=== PATIENT | female | born 1955 | race Caucasian/White ===

== ENCOUNTER 2018-09-05 10:06 | Emergency (ER) | payer MEDICARE, MEDICAID, SELFPAY ==
[2018-09-05 10:17] VITALS: BP 193/73; PULSE 108; RESP 20; TEMP 36.9; O2SAT 98; BMI 35.4
--- NOTE | 2018-09-05 12:15 | PC.NURSE ---
pt reports recent dental work. lower lip now swelling. lip has area of cracks.
--- NOTE | 2018-09-05 20:27 | ED.SKABFB ---
HPI - Skin/Abscess/Foreign Bdy General Chief complaint: Skin/Abscess/Foreign Body Stated complaint: Swollen lower part of her face after dental work Time Seen by Provider: 09/05/18 10:17 Source: patient and family Mode of arrival: ambulatory Limitations: no limitations History of Present Illness HPI narrative: 63-year-old nonsmoking female with extensive dental history presents with gradual worsening of lower lip swelling for the past few days. She denies fever, chills nor facial swelling. The patient denies any he tongue swelling, difficulty with swallowing or itchy rash. She has no new medications, foods or lotions. She is undergoing evaluation for dental procedure and has had very intensely chapped lips in pulled off a layer of skin on her lip few days ago, she had been seen by her dentist in the aftermath who suggested lip moisturizer is. Since then her lip as swollen a bit more and is more painful. MD complaint: lesion Onset (ago): day(s) Tetanus up to date: yes Location: face (Lower lip only) Severity: mild Quality: burning and aching Pain Consistency: constant Relieving factors: none Exacerbating factors: none Treatments prior to arrival: none Related Data Home Medications Medication Instructions Recorded Confirmed omeprazole magnesium [Prilosec OTC] 20 mg PO DAILY #0 06/13/12 09/05/18 Glucose: Home Monitoring Kit 1 kit MISCELLANEOUS DIRECTED 09/05/18 09/05/18 Test Strips - Freestyle 1 item MISCELLANEOUS TID 09/05/18 09/05/18 atorvastatin [Lipitor] 20 mg PO BEDTIME 09/05/18 09/05/18 chlorthalidone 25 mg PO DAILY 09/05/18 09/05/18 losartan [Cozaar] 50 mg PO DAILY 09/05/18 09/05/18 naproxen sodium [Aleve] 1 dose PO PRN PRN 09/05/18 09/05/18 thyroid (pork) [[place]idge Thyroid] 120 mg PO DAILY 09/05/18 09/05/18 trazodone 100 mg PO BEDTIME 09/05/18 09/05/18 Previous Rx's Medication Instructions Recorded glyburide 5 mg tablet 5 mg PO BID #180 tab 09/04/18 amoxicillin-pot clavulanate 1 tab PO BID 10 Days #20 tab 09/05/18 [Augmentin] Allergies Allergy/AdvReac Type Severity Reaction Status Date / Time streptomycin [STREPTOMYCIN] Allergy Severe Throat Unverified 01/01/18 11:51 swelled up Review of Systems Review of Systems All systems reviewed & are unremarkable except as noted in HPI and below Constitutional Denies chills, Denies fever(s), Denies lethargy and Denies weakness Eyes Denies change in vision, Denies eye discharge, Denies irritation and Denies loss of vision ENT Ears, Nose, Mouth, and Throat: Denies change in voice, Denies neck pain and Denies sore throat Cardiovascular Denies chest pain, Denies irregular heart rhythm, Denies lightheadedness, Denies palpitations, Denies dyspnea, Denies dyspnea on exertion and Denies orthopnea Respiratory Denies cough, Denies dyspnea, Denies dyspnea on exertion and Denies wheezing Gastrointestinal Gastrointestinal: Denies abdominal pain, Denies change in bowel habits, Denies diarrhea, Denies nausea and Denies vomiting Genitourinary Denies hematuria, Denies flank pain, Denies urinary incontinence and Denies urinary urgency Musculoskeletal Denies neck pain Integumentary/Breasts Denies pruritus, Denies erythema, Denies rash and Denies wounds Comments: Lower lip swelling and pain Neurologic Denies confusion, Denies loss of vision and Denies weakness Psychiatric Denies anxiety, Denies confusion, Denies depression, Denies homicidal ideation and Denies suicidal ideation Endocrine Denies palpitations Hematologic/Lymphatic Denies easy bruising Allergic/Immunologic Denies wheezing PFSH Social History Smoking Status: Former smoker Exam Narrative Exam Narrative: GEN: AOx3 and in mild distress EYES: Pupils are equal, round, and reactive to light and accommodation. Extraoccular muscles are intact bilaterally. There is no subconjunctival hemorrhage or exudate. FACE: Lower lip is notably swollen and tender. It is not fluctuant or indurated, there is no drainage. There is very minimal swelling on the left lower jaw adjacent to the lip. There is no obvious dental abscess or drainage. CHEST: Lungs are clear to auscultation bilaterally and free of wheezes, rales, or rhonchi. Heart rate is regular rhythm, there are no murmurs, clicks, rubs, or gallops. There is no chest wall tenderness. ABD: Abdomen is soft and nontender. There is no guarding or rebound. Bowel sounds are normal in all 4 quadrants. There is no mass or organomegaly. EXT: Full painless ROM of all extremities with no loss of sensation or strength. SKIN: Warm, pink, and dry. No erythema or rash Initial Vital Signs Initial Vital Signs: Vital Signs Temperature 98.5 F 09/05/18 10:17 Pulse Rate 108 H 09/05/18 10:17 Respiratory Rate 20 09/05/18 10:17 Blood Pressure 193/73 H 09/05/18 10:17 Pulse Oximetry 98 09/05/18 10:17 MDM - Skin/Abscess/Foreign Bdy MDM Narrative Medical decision making narrative: Allergic reaction or angioedema considered but thought less likely given lack of other supporting symptoms. Patient had cracked, dry lips and pulled off a later or chunk of skin and swelling and pain started afterwards, making infection much more likely Discharge Plan Departure Patient Disposition: Home Clinical Impression: Cellulitis of skin of lip Discharge Date/Time: 09/05/18 11:30 Interventions: ED Discharge Assessment Last Done: 09/05/18 12:17 Instructions: DI for Cellulitis -- Adult Activity Restrictions/Additional Instructions: *You have been diagnosed with [ cellulitis of lip ] *What to do: *Take medications as directed *Follow up with your primary care provider in 2-3 days, call for an appointment. Let them know you were seen in the Emergency Department and that we ask that you be seen in follow up *Return to ER if you should have any new, worsening or concerning symptoms, such as [increasing swelling, drainage, trouble breathing, swallowing or other bothersome symptoms ] Prescriptions: New amoxicillin-pot clavulanate [Augmentin] 875-125 mg tablet 1 tab PO BID 10 Days Qty: 20 RF: 0 No Action omeprazole magnesium [Prilosec OTC] 20 mg Tablet,Delayed Release (Dr/Ec) 20 mg PO DAILY Qty: 0 RF: 0 glyburide 5 mg tablet 5 mg PO BID Qty: 180 RF: 5 losartan [Cozaar] 50 mg tablet 50 mg PO DAILY RF: 0 atorvastatin [Lipitor] 20 MG tablet 20 mg PO BEDTIME RF: 0 chlorthalidone 25 mg tablet 25 mg PO DAILY RF: 0 trazodone 100 mg tablet 100 mg PO BEDTIME RF: 0 thyroid (pork) [Coolidge Thyroid] 120 mg tablet 120 mg PO DAILY RF: 0 Glucose: Home Monitoring Kit 1 kit miscellaneous DIRECTED RF: 0 Test Strips - Freestyle 1 item miscellaneous TID RF: 0 naproxen sodium [Aleve] 220 mg Tablet 1 dose PO PRN PRN (Reason: pain) RF: 0
== END 2018-09-05 11:30 | disposition home or self-care (01) ==
PROVIDERS: Emergency Provider Emergency Medicine; Family Provider Family Medicine; PCP Family Medicine
DX: K13.0 Diseases of lips (principal)
CPT/HCPCS: 99282

== ENCOUNTER 2018-09-06 12:05 | Emergency (ER) | payer MEDICARE, MEDICAID, SELFPAY ==
[2018-09-06 12:15] VITALS: BP 178/69; PULSE 93; RESP 20; TEMP 36.9; O2SAT 99
--- NOTE | 2018-09-06 12:35 | ED_ITS ---
HPI - Skin/Abscess/Foreign Bdy <LORRAINE Oconnor - Last Filed: 09/06/18 22:24> General Chief complaint: Skin/Abscess/Foreign Body Stated complaint: SWELL LOWER LIP SINCE SATURDAY Time Seen by Provider: 09/06/18 12:33 Source: patient Mode of arrival: ambulatory Limitations: no limitations History of Present Illness HPI narrative: 63-year-old female with history of hypertension is a nonsmoker here for recheck of swelling to her lower lip. She was seen in the emergency room yesterday and was diagnosed with cellulitis of the lower lip secondary to a dental procedure earlier this week. She was prescribed Augmentin and she has started taking the medication yesterday. She was concerned as the swelling to the lower lip has not improved. She also has some serous drainage from the lower lip. No fevers. She denies any oral lesions or swelling or tenderness other than the lower lip. She denies any new concerns or complaints at this time. Related Data Home Medications Medication Instructions Recorded Confirmed omeprazole magnesium [Prilosec OTC] 20 mg PO DAILY #0 06/13/12 09/05/18 Glucose: Home Monitoring Kit 1 kit MISCELLANEOUS DIRECTED 09/05/18 09/05/18 Test Strips - Freestyle 1 item MISCELLANEOUS TID 09/05/18 09/05/18 atorvastatin [Lipitor] 20 mg PO BEDTIME 09/05/18 09/05/18 chlorthalidone 25 mg PO DAILY 09/05/18 09/05/18 losartan [Cozaar] 50 mg PO DAILY 09/05/18 09/05/18 naproxen sodium [Aleve] 1 dose PO PRN PRN 09/05/18 09/05/18 thyroid (pork) [[place] Thyroid] 120 mg PO DAILY 09/05/18 09/05/18 trazodone 100 mg PO BEDTIME 09/05/18 09/05/18 Previous Rx's Medication Instructions Recorded glyburide 5 mg tablet 5 mg PO BID #180 tab 09/04/18 amoxicillin-pot clavulanate 1 tab PO BID 10 Days #20 tab 09/05/18 [Augmentin] Allergies Allergy/AdvReac Type Severity Reaction Status Date / Time streptomycin [STREPTOMYCIN] Allergy Severe Throat Unverified 01/01/18 11:51 swelled up Review of Systems <LORRAINE Oconnor - Last Filed: 09/06/18 22:24> Constitutional Denies chills, Denies fever(s), Denies lethargy and Denies weakness Eyes Denies change in vision, Denies eye discharge, Denies irritation and Denies loss of vision ENT Comments: Swelling to the lower lip Cardiovascular Denies chest pain, Denies irregular heart rhythm, Denies lightheadedness, Denies palpitations, Denies dyspnea, Denies dyspnea on exertion and Denies orthopnea Respiratory Denies cough, Denies dyspnea, Denies dyspnea on exertion and Denies wheezing Gastrointestinal Gastrointestinal: Denies abdominal pain, Denies change in bowel habits, Denies diarrhea, Denies nausea and Denies vomiting Genitourinary Denies hematuria, Denies flank pain, Denies urinary incontinence and Denies urinary urgency Musculoskeletal Denies back pain, Denies muscle weakness, Denies numbness and Denies tingling Integumentary/Breasts Denies pruritus, Denies erythema, Denies rash and Denies wounds Neurologic Denies confusion, Denies loss of vision, Denies numbness, Denies tingling and Denies weakness Psychiatric Denies anxiety, Denies confusion, Denies depression, Denies homicidal ideation and Denies suicidal ideation Endocrine Denies palpitations Hematologic/Lymphatic Denies easy bruising Allergic/Immunologic Denies wheezing Exam <LORRAINE Oconnor - Last Filed: 09/06/18 22:24> Initial Vital Signs Initial Vital Signs: Vital Signs Temperature 98.4 F 09/06/18 12:15 Pulse Rate 93 H 09/06/18 12:15 Respiratory Rate 20 09/06/18 12:15 Blood Pressure 178/69 H 09/06/18 12:15 Pulse Oximetry 99 09/06/18 12:15 Const General: cooperative and well developed Nutritional Appearance: well nourished Orientation: alert, awake, oriented x3 and not confused HENMT Face and sinus: other ( swelling into the lower lip with serous drainage from a fissures. no induration or fluctuance. swelling limited to lower lip) Mouth: oral mucosae normal, oropharynx normal and moist mucous membranes Eyes Conjunctivae: conjunctivae normal Sclera: sclerae normal Pupils: PERRL EOM: EOM intact bilaterally Neck Neck: normal visual inspection, trachea midline, No lymphadenopathy, No midline deformity and No JVD Lymphatic: No lymphedema Resp Effort & Inspection: normal respiratory effort, able to speak in complete sentences, no respiratory distress and no use of accessory muscles Auscultation: clear to auscultation bilaterally, no rales, no rhonchi and no wheezes Cardio Rate: regular rate Rhythm: regular rhythm Heart Sounds: no click, no gallops, no murmurs and no rubs Skin General: no rashes or lesions noted, No jaundice and No petechiae Neuro General: alert, oriented x3, gait normal and no focal motor deficits Speech: speech normal <Jackie Medrano DO - Last Filed: 09/07/18 08:06> Initial Vital Signs Initial Vital Signs: Vital Signs Temperature 98.4 F 09/06/18 12:15 Pulse Rate 93 H 09/06/18 12:15 Respiratory Rate 20 09/06/18 12:15 Blood Pressure 178/69 H 09/06/18 12:15 Pulse Oximetry 99 09/06/18 12:15 Course <LORRAINE Oconnor - Last Filed: 09/06/18 22:24> Vital Signs - 8 hr 09/06/18 12:15 Temperature 98.4 F Pulse Rate 93 H Respiratory Rate 20 Blood Pressure 178/69 H Pulse Oximetry 99 <DO Cade Decker Last Filed: 09/07/18 08:06> Vital Signs - 8 hr 09/06/18 12:15 Temperature 98.4 F Pulse Rate 93 H Respiratory Rate 20 Blood Pressure 178/69 H Pulse Oximetry 99 MDM - Skin/Abscess/Foreign Bdy <LORRAINE Oconnor - Last Filed: 09/06/18 22:24> MDM Narrative Medical decision making narrative: no induration or fluctuance appreciated to the lower lip. Patient is only been on antibiotics for 24 hr will continue to have her take antibiotics and follow up with primary care in the next couple of days for re-evaluation. Bacitracin to the lower lip along with warm moist compresses. [id number] Tylenol or Motrin as needed for any discomfort. For any worsening symptoms return emergency room. Discharge Plan Departure Patient Disposition: Home Clinical Impression: Cellulitis of skin of lip Discharge Date/Time: 09/06/18 13:08 Interventions: ED Discharge Assessment Last Done: 09/06/18 13:08 Instructions: Cellulitis Activity Restrictions/Additional Instructions: antibiotics volume in use for 24 hr will need more time for antibiotics to work. use [id number] Tylenol or Motrin as needed for any discomfort. use bacitracin ointment to the lower lip a few times a day until healed. Warm moist compresses to the lower lip a couple times a day as well. follow up with primary care provider in the next couple days for re-evaluation. For any worsening symptoms return emergency room. Prescriptions: No Action omeprazole magnesium [Prilosec OTC] 20 mg Tablet,Delayed Release (Dr/Ec) 20 mg PO DAILY Qty: 0 RF: 0 glyburide 5 mg tablet 5 mg PO BID Qty: 180 RF: 5 losartan [Cozaar] 50 mg tablet 50 mg PO DAILY RF: 0 atorvastatin [Lipitor] 20 MG tablet 20 mg PO BEDTIME RF: 0 chlorthalidone 25 mg tablet 25 mg PO DAILY RF: 0 trazodone 100 mg tablet 100 mg PO BEDTIME RF: 0 thyroid (pork) [[place]well Thyroid] 120 mg tablet 120 mg PO DAILY RF: 0 Glucose: Home Monitoring Kit 1 kit miscellaneous DIRECTED RF: 0 Test Strips - Freestyle 1 item miscellaneous TID RF: 0 naproxen sodium [Aleve] 220 mg Tablet 1 dose PO PRN PRN (Reason: pain) RF: 0 amoxicillin-pot clavulanate [Augmentin] 875-125 mg tablet 1 tab PO BID 10 Days Qty: 20 RF: 0 Referrals: Marlon Brown MD [Primary Care Provider] - <Jackie Medrano DO - Last Filed: 09/07/18 08:06> Cosign ED Attending Javadature Attestation: I was immediately available in the department for consultation. Documentation has been reviewed. I agree with assessment and plan.
== END 2018-09-06 13:08 | disposition home or self-care (01) ==
PROVIDERS: Emergency Provider Nurse Practitioner Family; Family Provider Family Medicine; PCP Family Medicine
DX: K13.0 Diseases of lips (principal)
CPT/HCPCS: 99282

== ENCOUNTER → 2019-04-22 11:18 | Outpatient (CLI) | payer MEDICARE, MEDICAID, SELFPAY ==
[2019-04-22 12:28] LABS: Hemoglobin A1C% w Est Avg Glu 5.2 % (4.0-6.0)
[2019-04-22 12:42] LABS: Alanine Aminotransferase 37 IU/L (9-52); Albumin 4.3 g/dL (3.5-5.0); Albumin Globulin Ratio 1.5 (1.0-2.8); Alkaline Phosphatase 74 U/L (38-126); Aspartate Aminotransferase 42 IU/L (14-36); BUN Creatinine Ratio 21.7 (6-22); Blood Urea Nitrogen 13 mg/dL (7-17); Calcium 9.6 mg/dL (8.4-10.2); Carbon Dioxide 30 mmol/L (22-32); Chloride 95 mmol/L (98-107); Cholesterol 271 mg/dL (140-199); Estimated Glomerular Filt Rate > 60.0 mL/min (>60); Globulin 2.9 g/dL (1.7-4.1); Glucose 123 mg/dL (80-110); HDL Cholesterol 69 mg/dL (40-60); HEMOLYSIS < 15 (0-50); LDL Cholesterol Calculated 179 mg/dL (<100); Potassium 3.7 mmol/L (3.4-5.1); Sodium 138 mmol/L (137-145); Total Protein 7.2 g/dL (6.3-8.2); Triglycerides 113 mg/dL (35-150)
[2019-04-22 12:47] LABS: Add Manual Diff / Slide Review NO; Basophils Absolute Auto 100 /uL (0-100); Basophils Percent Auto 0.9 % (0-2); Eosinophils Absolute Auto 100 /uL (0-450); Eosinophils Percent Auto 1.5 % (2-4); Hemoglobin 14.5 g/dL (12.0-16.0); Lymphocytes Absolute Auto 1400 /uL (1100-4500); Lymphocytes Percent Auto 22.2 % (25-40); Mean Corpuscular HGB Conc 34.6 % (30-36); Mean Corpuscular Hemoglobin 33.1 PG (26-34); Mean Corpuscular Volume 95.9 fL (80-100); Monocytes Absolute Auto 400 /uL (0-900); Monocytes Percent Auto 5.9 % (3-14); Neutrophils Absolute Auto 4300 /uL (1500-7000); Neutrophils Percent Auto 69.5 % (50-75); Platelet Count 207 X10^3/uL (150-400); Red Blood Cell Count 4.38 X10^6/uL (4.0-5.2); Red Cell Distribution Width 13.3 % (11.6-14.8); White Blood Cell Count 6.1 X10^3/uL (4.5-11.0)
[2019-04-22 13:07] LABS: Thyroid Stimulating Hormone 1.21 uIU/mL (0.47-4.68)
== END ==
PROVIDERS: PCP Family Medicine; Visit Provider Family Medicine
DX: E03.9 Hypothyroidism, unspecified (principal); E11.9 Type 2 diabetes mellitus without complications; E78.5 Hyperlipidemia, unspecified; I10 Essential (primary) hypertension; R79.89 Other specified abnormal findings of blood chemistry
CPT/HCPCS: 36415; 80053; 80061; 83036; 84443; 85025

== ENCOUNTER → 2019-05-11 13:29 | Outpatient (CLI) | payer MEDICARE, MEDICAID, SELFPAY ==
--- NOTE | 2019-05-29 15:08 | PM.CARDMON.1 ---
Historian Research Assistant Report Referral & Results Date Patient Seen: 05/11/19 Requesting provider: Marlon Brown Indication: Palpitations Duration of monitoring (days): 7 Diary information: There were no patient triggered events or patient diary entries Data: Minimum heart rate identified was 53 beats per minute at 03:31 on 05/14/2019 Maximum sinus heart rate was 146 beats per minute at 17:49 on 05/11/2019 Maximum overall heart rate was 187 beats per minute during a 12.2nd run of supraventricular tachycardia that occurred at 10:14 on 05/13/2019 Occasional PACs were identified approximately 1.3% of identified beats Rare PVCs less than 1% of identified beats Impression: Difficult to coordinate patient's sense of palpitations given lack of patient events identified on this study but patient with significant number of supraventricular ectopic beats the suggesting that is the likely source of patient's symptoms. There also 2 runs of SVT longest of which was 31 seconds at 122 beats per minute suggesting possible atrial tachycardia as an alternative diagnosis Clinical correlation suggested
== END ==
PROVIDERS: PCP Family Medicine; Visit Provider Family Medicine
DX: R00.2 Palpitations (principal)
CPT/HCPCS: 0296T; 0298T

== ENCOUNTER → 2019-11-16 12:36 | Outpatient (CLI) | payer MEDICARE, MEDICAID, SELFPAY ==
[2019-11-16 13:05] LABS: Add Manual Diff / Slide Review NO; Basophils Absolute Auto 100 /uL (0-100); Eosinophils Absolute Auto 100 /uL (0-450); Eosinophils Percent Auto 1.3 % (2-4); Hematocrit 44.3 % (36-46); Hemoglobin 15.7 g/dL (12.0-16.0); Lymphocytes Absolute Auto 1100 /uL (1100-4500); Lymphocytes Percent Auto 19.9 % (25-40); Mean Corpuscular HGB Conc 35.4 % (30-36); Mean Corpuscular Hemoglobin 34.8 PG (26-34); Mean Corpuscular Volume 98.4 fL (80-100); Monocytes Absolute Auto 400 /uL (0-900); Monocytes Percent Auto 6.4 % (3-14); Neutrophils Absolute Auto 4000 /uL (1500-7000); Neutrophils Percent Auto 71.4 % (50-75); Platelet Count 232 X10^3/uL (150-400); Red Cell Distribution Width 13.3 % (11.6-14.8); White Blood Cell Count 5.6 X10^3/uL (4.5-11.0)
[2019-11-16 13:19] LABS: Hemoglobin A1C% w Est Avg Glu 5.4 % (4.0-6.0)
[2019-11-16 13:31] LABS: Alanine Aminotransferase 20 IU/L (<35); Albumin 4.6 g/dL (3.5-5.0); Albumin Globulin Ratio 1.3 (1.0-2.8); Alkaline Phosphatase 73 U/L (38-126); Aspartate Aminotransferase 41 IU/L (14-36); Bilirubin Total 1.1 mg/dL (0.2-1.3); Blood Urea Nitrogen 7 mg/dL (7-17); Calcium 9.5 mg/dL (8.4-10.2); Carbon Dioxide 29 mmol/L (22-32); Chloride 91 mmol/L (98-107); Estimated Glomerular Filt Rate > 60.0 mL/min (>60); Globulin 3.6 g/dL (1.7-4.1); Glucose 131 mg/dL (80-110); HEMOLYSIS < 15 (0-50); Potassium 3.7 mmol/L (3.4-5.1); Sodium 131 mmol/L (137-145); Total Protein 8.2 g/dL (6.3-8.2)
== END ==
PROVIDERS: PCP Family Medicine; Referring Provider Family Medicine; Visit Provider Family Medicine
DX: K59.00 Constipation, unspecified (principal); R79.89 Other specified abnormal findings of blood chemistry; R11.0 Nausea
CPT/HCPCS: 36415; 80053; 83036; 85025

== ENCOUNTER → 2019-11-18 13:04 | Outpatient (CLI) | payer MEDICARE, MEDICAID, SELFPAY ==
--- NOTE | 2019-11-18 13:05 | DI.US.S_ITS ---
PROCEDURE: US ABDOMEN COMPLETE INDICATIONS: ABD PAIN TECHNIQUE: Real-time scanning was performed of the abdominal and retroperitoneal organs, with image documentation. COMPARISON: [facility], [place], ABDOMEN COMPLETE, 07/14/2013, 14:36. FINDINGS: Liver: Liver is normal in size and homogeneous in echotexture, diffusely moderately hyperechoic consistent with fatty infiltration. Gallbladder: Sludge and stones are present within the gallbladder lumen, but there is no sign of gallbladder inflammation as would be indicated by abnormal gallbladder wall thickening. The gallbladder wall measures only 2 mm in maximal thickness. Biliary ducts: Intrahepatic bile ducts are non-dilated. Extrahepatic bile duct caliber measures 5.6 mm. Normal is 6-7 mm or less in diameter, or 10 mm or less post-cholecystectomy. Pancreas: Visualized portions of the pancreas are sonographically normal. Spleen: Spleen is at the upper limits of normal in size at 13 cm craniocaudad, and homogeneous in echotexture. Kidneys: Kidneys are normal in size and echotexture. Right kidney measures 10.4 cm long; left kidney measures 11.5 cm long. No hydronephrosis or nephrolithiasis. No solid masses. Aorta: Visualized aorta is normal in caliber at less than 3 cm. Iliacs: Proximal common iliac arteries are normal in caliber at less than 2.5 cm. IVC: Intrahepatic inferior vena cava is patent. Miscellaneous: No free abdominal fluid. IMPRESSION: Hyperechoic liver echotexture consistent with hepatic steatosis. No biliary distention found. The gallbladder contains sludge and several small stones, but shows no evidence of acute cholecystitis. There is mild tenderness during sonographic palpation over the gallbladder, however. Dictated by: Alfredo Camarillo M.D. on 11/18/2019 at 15:30 Approved by: Alfredo Camarillo M.D. on 11/18/2019 at 15:32
== END ==
PROVIDERS: PCP Family Medicine; Referring Provider Family Medicine; Visit Provider Family Medicine
DX: R10.9 Unspecified abdominal pain (principal); R79.89 Other specified abnormal findings of blood chemistry; R11.0 Nausea; K59.00 Constipation, unspecified; K82.8 Other specified diseases of gallbladder
CPT/HCPCS: 76700

== ENCOUNTER 2019-11-21 12:40 | Emergency (ER) | payer MEDICARE, MEDICAID, SELFPAY ==
[2019-11-21 12:45] VITALS: BP 183/89; PULSE 89; RESP 18; TEMP 36.2; O2SAT 100
--- NOTE | 2019-11-21 13:12 | ED.NAVMDI ---
HPI - Nausea/Vomiting/Diarrhea <Jessica Morgan, APPLICATIONS SYSTEM ANALYST-BC - Last Filed: 11/21/19 18:12> General Chief complaint: Nausea/Vomiting/Diarrhea Stated complaint: nausea/dizzy/shaky/lightheaded-not able to eat Time Seen by Provider: 11/21/19 12:44 Source: patient Mode of arrival: Ambulatory Limitations: no limitations History of Present Illness HPI Narrative: The patient is a 64-year-old female former smoker who presents with her father for chief complaint of nausea and general malaise for the past several months. She states that she has been vomiting a few times a day, but denies any fevers chills, constipation or diarrhea. She states she has vague abdominal discomfort, but nothing specific. She does have history of diabetes and recently stopped her diabetes medication because they were giving her GI side effects. She denies any history of abdominal surgeries. She denies any chest pain or shortness of breath. She states that she saw her primary care provider for this recently, had ultrasound done at this location a few days ago. The patient states that she drinks alcohol, a few drinks every day usually wine at night. Related Data Home Medications Medication Instructions Recorded Confirmed omeprazole magnesium [Prilosec OTC] 20 mg PO DAILY #0 06/13/12 11/10/19 Glucose: Home Monitoring Kit 1 kit MISCELLANEOUS DIRECTED 09/05/18 11/10/19 Test Strips - Freestyle 1 item MISCELLANEOUS TID 09/05/18 11/10/19 naproxen sodium [Aleve] 1 dose PO PRN PRN 09/05/18 11/10/19 Previous Rx's Medication Instructions Recorded glyburide 5 mg tablet 5 mg PO BID #60 tab 04/28/19 thyroid (pork) 120 mg tablet 120 mg PO DAILY #30 tab 04/28/19 trazodone 100 mg tablet See Rx Instructions .ROUTE 10/19/19 .COMPLEX #30 tablet losartan 50 mg tablet 50 mg PO DAILY #90 tab 11/10/19 amlodipine 5 mg tablet 5 mg PO DAILY #30 tab 11/17/19 ondansetron 4 mg PO Q6H PRN #20 tab 11/21/19 pantoprazole [Protonix] 20 mg PO DAILY #14 tab 11/21/19 Allergies Allergy/AdvReac Type Severity Reaction Status Date / Time streptomycin [STREPTOMYCIN] Allergy Severe Throat Verified 11/10/19 14:28 swelled up Review of Systems <ABBY Adamson - Last Filed: 11/21/19 18:12> Review of Systems Narrative: GENERAL: Denies chills, fatigue, malaise, fever, sweats. HEENT: Denies sinus pain, ear pain, sore throat, difficulty swallowing, dizziness. RESPIRATORY: Denies dyspnea, cough, wheezing, hemoptysis, sputum. CARDIOVASCULAR: Denies chest pain, palpitations, orthopnea, edema, GASTROINTESTINAL: See HPI : Denies dysuria, frequency, incontinence, hematuria, urinary retention. MUSCULOSKELETAL: denies weakness, joint pain, or bony pain SKIN: Denies rash, skin lesions, or other NEUROLOGIC: Denies weakness, headache, numbness, change in speech, confusion, seizures, incoordination. PSYCHIATRIC: No concerning psychosocial issues. 12 point review of systems is negative except for those stated above Patient History <ABBY Adamson - Last Filed: 11/21/19 18:12> Medical History (Updated 11/21/19 @ 16:42 by ABBY Adamson) FHx: SVT (supraventricular tachycardia) (Acute) Social History Smoking Status: Former smoker Smoking Status: Former smoker alcohol intake frequency: 0-2 drinks per day Substance Use Type: does not use Exam <ABBY Adamson - Last Filed: 11/21/19 18:12> Narrative Exam Narrative: GENERAL: This is a well-nourished, well-developed patient, in no acute distress HEAD: Atraumatic. Normocephalic. No temporal or scalp tenderness. EYES: Pupils equal round and reactive. Extraocular motions intact. No scleral icterus. No injection or drainage. ENT: Nose without bleeding, purulent drainage or septal hematoma. Throat without erythema, tonsillar hypertrophy or exudate. Uvula midline. Airway patent. NECK: Trachea midline. No JVD or lymphadenopathy. Supple, nontender, no meningeal signs. CARDIOVASCULAR: Regular rate and rhythm RESPIRATORY: Clear to auscultation. Breath sounds equal bilaterally. No wheezes, rales, or rhonchi. No cough. No increased respiratory effort. No accessory muscle use. GASTROINTESTINAL: Abdomen soft, diffusely tender, nondistended. No hepato-splenomegaly, or palpable masses. No guarding. Active bowel sounds all 4 quadrants EXTREMITIES: No clubbing, cyanosis, or edema. No joint tenderness, effusion, or edema noted. BACK: Nontender without deformity or crepitance. No flank tenderness. NEURO: AOx3. SKIN: No rash or erythema. Initial Vital Signs Initial Vital Signs: Vital Signs Temperature 97.1 F L 11/21/19 12:45 Pulse Rate 89 11/21/19 12:45 Respiratory Rate 18 11/21/19 12:45 Blood Pressure 183/89 H 11/21/19 12:45 Pulse Oximetry 100 11/21/19 12:45 <Jitendra Carbajal DO - Last Filed: 11/21/19 18:54> Initial Vital Signs Initial Vital Signs: Vital Signs Temperature 97.1 F L 11/21/19 12:45 Pulse Rate 89 11/21/19 12:45 Respiratory Rate 18 11/21/19 12:45 Blood Pressure 183/89 H 11/21/19 12:45 Pulse Oximetry 100 11/21/19 12:45 Course <RICA Adamson-BC - Last Filed: 11/21/19 18:12> Orders Ordered: ED Orders 11/21/19 13:19 XR acute abdomen series Stat Amylase Stat Complete Blood Count AUTO DIFF Stat Comprehensive Metabolic Panel Stat Lipase Stat 11/21/19 14:32 US abdomen limited Stat 11/21/19 16:50 Urine Microscopic Stat Discontinued Medications Sodium Chloride (Normal Saline 0.9%) 1,000 mls @ 1,000 mls/hr IV BOLUS ONE Stop: 11/21/19 14:17 Last Admin: 11/21/19 13:34 Dose: 1,000 mls/hr Documented by: ANJELICA Ondansetron HCl (Zofran) 4 mg IV NOW ONE Stop: 11/21/19 13:19 Last Admin: 11/21/19 13:34 Dose: 4 mg Documented by: ANJELICA Pantoprazole Sodium (Protonix) 40 mg IV NOW ONE Stop: 11/21/19 13:21 Last Admin: 11/21/19 13:34 Dose: 40 mg Documented by: ANJELICA Reevaluation(s) Reevaluation #1: Patient states she feels much improved after Zofran and Protonix. States that she is no longer feeling nauseous, and feels hungry at this time. Discussed waiting x-ray results at this time. Time: 14:20 Vital Signs Vital signs: Vital Signs - 8 hr 11/21/19 12:45 11/21/19 14:10 11/21/19 14:30 Temperature 97.1 F L Pulse Rate 89 67 64 Respiratory Rate 18 Blood Pressure 183/89 H Blood Pressure [Left Arm] 152/70 H 173/77 H Pulse Oximetry 100 99 100 11/21/19 16:00 11/21/19 16:30 11/21/19 17:00 Temperature Pulse Rate 61 80 64 Respiratory Rate 16 18 16 Blood Pressure Blood Pressure [Left Arm] 162/71 H 169/77 H 143/71 H Pulse Oximetry 100 100 94 <Jitendra Carbajal DO - Last Filed: 11/21/19 18:54> Orders Ordered: ED Orders 11/21/19 13:19 XR acute abdomen series Stat Amylase Stat Complete Blood Count AUTO DIFF Stat Comprehensive Metabolic Panel Stat Lipase Stat 11/21/19 14:32 US abdomen limited Stat 11/21/19 16:50 Urine Microscopic Stat Discontinued Medications Sodium Chloride (Normal Saline 0.9%) 1,000 mls @ 1,000 mls/hr IV BOLUS ONE Stop: 11/21/19 14:17 Last Admin: 11/21/19 13:34 Dose: 1,000 mls/hr Documented by: ANJELICA Ondansetron HCl (Zofran) 4 mg IV NOW ONE Stop: 11/21/19 13:19 Last Admin: 11/21/19 13:34 Dose: 4 mg Documented by: ANJELICA Pantoprazole Sodium (Protonix) 40 mg IV NOW ONE Stop: 11/21/19 13:21 Last Admin: 11/21/19 13:34 Dose: 40 mg Documented by: ANJELICA Vital Signs Vital signs: Vital Signs - 8 hr 11/21/19 12:45 11/21/19 14:10 11/21/19 14:30 Temperature 97.1 F L Pulse Rate 89 67 64 Respiratory Rate 18 Blood Pressure 183/89 H Blood Pressure [Left Arm] 152/70 H 173/77 H Pulse Oximetry 100 99 100 11/21/19 16:00 11/21/19 16:30 11/21/19 17:00 Temperature Pulse Rate 61 80 64 Respiratory Rate 16 18 16 Blood Pressure Blood Pressure [Left Arm] 162/71 H 169/77 H 143/71 H Pulse Oximetry 100 100 94 MDM - Nausea/Vomiting/Diarrhea <Jessica Morgan, APPLICATIONS SYSTEM ANALYST- - Last Filed: 11/21/19 18:12> Lab Data Result diagrams: 11/21/19 13:19 11/21/19 13:19 Labs: Lab Results 11/21/19 11/21/19 11/21/19 Range/Units 13:19 13:19 16:50 WBC 7.0 (4.5-11.0) X10^3/uL RBC 4.44 (4.0-5.2) X10^6/uL Hgb 15.3 (12.0-16.0) g/dL Hct 43.3 (36-46) % MCV 97.4 (80-100) fL MCH 34.5 H (26-34) PG MCHC 35.5 (30-36) % RDW 12.8 (11.6-14.8) % Plt Count 196 (150-400) X10^3/uL Neut % (Auto) 83.5 H (50-75) % Lymph % (Auto) 9.9 L (25-40) % [place] % (Auto) 5.5 (3-14) % Eos % (Auto) 0.4 L (2-4) % Baso % (Auto) 0.7 (0-2) % Neut # (Auto) 5800 (6069-8210) /uL Lymph # (Auto) 700 L (6519-2878) /uL [place] # (Auto) 400 (0-900) /uL Eos # (Auto) 0 (0-450) /uL Baso # (Auto) 100 (0-100) /uL Sodium 128 L (137-145) mmol/L Potassium 4.4 (3.4-5.1) mmol/L Chloride 89 L (98-107) mmol/L Carbon Dioxide 26 (22-32) mmol/L BUN 9 (7-17) mg/dL Creatinine 0.60 (0.52-1.04) mg/dL Estimated GFR > 60.0 (>60) mL/min BUN/Creatinine Ratio 15.0 (6-22) Glucose 145 H (80-110) mg/dL Calcium 9.4 (8.4-10.2) mg/dL Total Bilirubin 1.9 H (0.2-1.3) mg/dL AST 48 H (14-36) IU/L ALT 22 (<35) IU/L Alkaline Phosphatase 66 (38-126) U/L Total Protein 8.1 (6.3-8.2) g/dL Albumin 4.6 (3.5-5.0) g/dL Globulin 3.5 (1.7-4.1) g/dL Albumin/Globulin Ratio 1.3 (1.0-2.8) Amylase 66 (30-110) U/L Lipase 95 (23-300) U/L Urine RBC None seen (0-5/HPF) Urine WBC None seen (0-5/HPF) Urine Bacteria None seen (None) Ur Culture Indicated? Cult not indicated Point of Care Testing Glucose POC 135 Urine Dip Bedside Urine Glucose Negative Bedside Urine Bilirubin - Negative Bedside Urine Ketone + 15 Urine Specific [place] 1.015 Bedside Urine Occult Blood - Negative Bedside Urine pH 6 Bedside Urine Protein - Negative Bedside Urine Urobilinogen +/- 1mg Bedside Urine Nitrite - Negative Bedside Urine Leukocytes - Negative Esterase Imaging Data Abdominal x-ray: Radiologist's Impression: [address] [address] XRay Report Signed Patient: Rajwinder AlfordMR#: [id number] : 3Acct:[id number] Age/Sex: 64 / FDate of Service: 11/21/19 Loc: ED Accession Number: [id number] Procedure: XR acute abdomen series Ordering Provider: Jessica Morgan- PROCEDURE: XR ACUTE ABDOMEN SERIES INDICATIONS: Abdominal pain TECHNIQUE: One view chest and two views of the abdomen were acquired. COMPARISON: None. FINDINGS: Surgical changes and devices: None. Chest: Linear opacities in the left base likely represent scarring or prominent epicardial fat. Lungs are otherwise clear. Heart size is normal. No pleural effusions. No pneumoperitoneum. Abdomen: Bowel gas pattern demonstrates intraluminal gas throughout nondilated loops of small and large bowel. There are a few small scattered air-fluid levels. No suspicious calcifications. Bones: No suspicious bony lesions. IMPRESSION: 1. Nonspecific bowel gas pattern with a few scattered air-fluid levels but no definite obstruction. The findings are suggestive of a gastroenteritis or ileus. Dictated by: Freddy Machado M.D. on 11/21/2019 at 13:20 Approved by: Freddy Machado M.D. on 11/21/2019 at 13:27 CT scan - abdomen/pelvis: Radiologist's Impression: [address] [address] Ultrasound Report Signed Patient: Rajwinder AlfordMR#: [id number] : 3Acct:[id number] Age/Sex: 64 / FDate of Service: 11/21/19 Loc: ED Accession Number: [id number] Procedure: US abdomen limited Ordering Provider: Jessica Morgan PROCEDURE: US ABDOMEN LIMITED INDICATIONS: RIGHT UPPER QUADRANT PAIN; ELEVATED BILIRUBIN TECHNIQUE: Real-time focused scanning was performed of the right upper quadrant, with image documentation. COMPARISON: [facility], US, US ABDOMEN COMPLETE, 11/18/2019, 13:23. FINDINGS: The liver again demonstrates increased hepatic echogenicity compatible with steatosis. There are small areas of likely focal sparing along the gallbladder fossa. The gallbladder demonstrates intraluminal biliary sludge as well as a few echogenic shadowing dependent gallstones measuring up to 0.5 cm. No gallbladder wall thickening or definite pericholecystic fluid. Patient was reportedly tender on exam exam. No intrahepatic biliary ductal dilatation. The chest pancreas appears unremarkable sonographically. IMPRESSION: 1. Cholelithiasis and biliary sludge without definite sonographic evidence of cholecystitis. 2. No biliary ductal dilatation. Dictated by: Freddy Machado M.D. on 11/21/2019 at 14:57 Approved by: Freddy Machado M.D. on 11/21/2019 at 15:00 [facility] Narrative Medical decision making narrative: The patient is a 64-year-old female who presents with a chief complaint of several months of generalized abdominal discomfort and vomiting. She responded well to Protonix and Zofran in the emergency department. Basic labs are within normal limits, no acute leukocytosis. The patient does have a slightly elevated bilirubin, so I did obtain a right upper quadrant ultrasound given her history of gallstones and sludge. She has no signs of acute cholecystitis. I discussed at length pushing fluids, dietary changes, follow-up with primary care provider. Discussed low-fat diet. Discussed try to stop drinking alcohol. She was able to tolerate p.o. fluids and juice. Discussed coming back to emergency department for any acute concerns. Of note patient has hyponatremia, though it appears to be normal for her given her recent labs. Discussed with patient she states she plans on following up with primary care provider regarding this. <Jitendra Carbajal, DO - Last Filed: 11/21/19 18:54> Lab Data Labs: Lab Results 11/21/19 11/21/19 11/21/19 Range/Units 13:19 13:19 16:50 WBC 7.0 (4.5-11.0) X10^3/uL RBC 4.44 (4.0-5.2) X10^6/uL Hgb 15.3 (12.0-16.0) g/dL Hct 43.3 (36-46) % MCV 97.4 (80-100) fL MCH 34.5 H (26-34) PG MCHC 35.5 (30-36) % RDW 12.8 (11.6-14.8) % Plt Count 196 (150-400) X10^3/uL Neut % (Auto) 83.5 H (50-75) % Lymph % (Auto) 9.9 L (25-40) % [place] % (Auto) 5.5 (3-14) % Eos % (Auto) 0.4 L (2-4) % Baso % (Auto) 0.7 (0-2) % Neut # (Auto) 5800 (5592-0238) /uL Lymph # (Auto) 700 L (7037-4136) /uL [place] # (Auto) 400 (0-900) /uL Eos # (Auto) 0 (0-450) /uL Baso # (Auto) 100 (0-100) /uL Sodium 128 L (137-145) mmol/L Potassium 4.4 (3.4-5.1) mmol/L Chloride 89 L (98-107) mmol/L Carbon Dioxide 26 (22-32) mmol/L BUN 9 (7-17) mg/dL Creatinine 0.60 (0.52-1.04) mg/dL Estimated GFR > 60.0 (>60) mL/min BUN/Creatinine Ratio 15.0 (6-22) Glucose 145 H (80-110) mg/dL Calcium 9.4 (8.4-10.2) mg/dL Total Bilirubin 1.9 H (0.2-1.3) mg/dL AST 48 H (14-36) IU/L ALT 22 (<35) IU/L Alkaline Phosphatase 66 (38-126) U/L Total Protein 8.1 (6.3-8.2) g/dL Albumin 4.6 (3.5-5.0) g/dL Globulin 3.5 (1.7-4.1) g/dL Albumin/Globulin Ratio 1.3 (1.0-2.8) Amylase 66 (30-110) U/L Lipase 95 (23-300) U/L Urine RBC None seen (0-5/HPF) Urine WBC None seen (0-5/HPF) Urine Bacteria None seen (None) Ur Culture Indicated? Cult not indicated Point of Care Testing Glucose POC 135 Urine Dip Bedside Urine Glucose Negative Bedside Urine Bilirubin - Negative Bedside Urine Ketone + 15 Urine Specific [place] 1.015 Bedside Urine Occult Blood - Negative Bedside Urine pH 6 Bedside Urine Protein - Negative Bedside Urine Urobilinogen +/- 1mg Bedside Urine Nitrite - Negative Bedside Urine Leukocytes - Negative Esterase Discharge Plan Departure Patient Disposition: Home Clinical Impression: Cholelithiasis Qualifiers: Cholelithiasis location: gallbladder Cholecystitis presence: without cholecystitis Biliary obstruction: without biliary obstruction Qualified Code(s): K80.20 - Calculus of gallbladder without cholecystitis without obstruction Abdominal pain Qualifiers: Abdominal location: generalized Qualified Code(s): R10.84 - Generalized abdominal pain Discharge Date/Time: 11/21/19 17:34 Instructions: Gallstones (Alternative Therapy), DI for Gallstones, DI for Abdominal Pain-Adult, DI for Vomiting -- Adult, GERD Diet Activity Restrictions/Additional Instructions: Today your ultrasound shows no signs of acute gallbladder infection However you do have gallstones. Please eat a low-fat diet and follow up with primary care provider. I have given you contact information for [facility] as well. Please eat a low acid, bland diet as this may help your stomach Please come back to emergency department for any acute concerns I sent 2 prescriptions to [email or web address] Prescriptions: New ondansetron 4 mg tablet,disintegrating 4 mg PO Q6H PRN (Reason: nausea and vomiting) Qty: 20 RF: 0 pantoprazole [Protonix] 20 mg tablet,delayed release (DR/EC) 20 mg PO DAILY Qty: 14 RF: 0 No Action losartan [Cozaar] 50 mg tablet 50 mg PO DAILY Qty: 90 RF: 3 omeprazole magnesium [Prilosec OTC] 20 mg Tablet,Delayed Release (Dr/Ec) 20 mg PO DAILY Qty: 0 RF: 0 glyburide 5 mg tablet 5 mg PO BID Qty: 60 RF: 11 thyroid (pork) [[place] Thyroid] 120 mg tablet 120 mg PO DAILY Qty: 30 RF: 11 trazodone 100 mg tablet See Rx Instructions .ROUTE .COMPLEX Qty: 30 RF: 11 amlodipine [Norvasc] 5 mg tablet 5 mg PO DAILY Qty: 30 RF: 3 Glucose: Home Monitoring Kit 1 kit miscellaneous DIRECTED RF: 0 Test Strips - Freestyle 1 item miscellaneous TID RF: 0 naproxen sodium [Aleve] 220 mg Tablet 1 dose PO PRN PRN (Reason: pain) RF: 0 Referrals: Marlon Brown MD [Primary Care Provider] -
--- NOTE | 2019-11-21 13:19 | DI.RAD.S_ITS ---
PROCEDURE: XR ACUTE ABDOMEN SERIES INDICATIONS: Abdominal pain TECHNIQUE: One view chest and two views of the abdomen were acquired. COMPARISON: None. FINDINGS: Surgical changes and devices: None. Chest: Linear opacities in the left base likely represent scarring or prominent epicardial fat. Lungs are otherwise clear. Heart size is normal. No pleural effusions. No pneumoperitoneum. Abdomen: Bowel gas pattern demonstrates intraluminal gas throughout nondilated loops of small and large bowel. There are a few small scattered air-fluid levels. No suspicious calcifications. Bones: No suspicious bony lesions. IMPRESSION: 1. Nonspecific bowel gas pattern with a few scattered air-fluid levels but no definite obstruction. The findings are suggestive of a gastroenteritis or ileus. Dictated by: Freddy Machado M.D. on 11/21/2019 at 13:20 Approved by: Freddy Machado M.D. on 11/21/2019 at 13:27
[2019-11-21 13:29] LABS: Add Manual Diff / Slide Review NO; Basophils Absolute Auto 100 /uL (0-100); Basophils Percent Auto 0.7 % (0-2); Eosinophils Absolute Auto 0 /uL (0-450); Eosinophils Percent Auto 0.4 % (2-4); Hematocrit 43.3 % (36-46); Hemoglobin 15.3 g/dL (12.0-16.0); Lymphocytes Absolute Auto 700 /uL (1100-4500); Lymphocytes Percent Auto 9.9 % (25-40); Mean Corpuscular HGB Conc 35.5 % (30-36); Mean Corpuscular Hemoglobin 34.5 PG (26-34); Mean Corpuscular Volume 97.4 fL (80-100); Monocytes Absolute Auto 400 /uL (0-900); Monocytes Percent Auto 5.5 % (3-14); Neutrophils Absolute Auto 5800 /uL (1500-7000); Neutrophils Percent Auto 83.5 % (50-75); Platelet Count 196 X10^3/uL (150-400); Red Blood Cell Count 4.44 X10^6/uL (4.0-5.2); Red Cell Distribution Width 12.8 % (11.6-14.8)
[2019-11-21] MEDS: ONDANSETRON 4 MG/2 ML INJ IV (13:34)
[2019-11-21] MEDS: PANTOPRAZOLE 40 MG VIAL IV (13:34)
[2019-11-21] MEDS: SODIUM CHLORIDE 0.9% 1,000 ML 1000 ML IV (13:34)
[2019-11-21 13:41] LABS: Alanine Aminotransferase 22 IU/L (<35); Albumin 4.6 g/dL (3.5-5.0); Albumin Globulin Ratio 1.3 (1.0-2.8); Alkaline Phosphatase 66 U/L (38-126); Amylase 66 U/L (30-110); Bilirubin Total 1.9 mg/dL (0.2-1.3); Blood Urea Nitrogen 9 mg/dL (7-17); Calcium 9.4 mg/dL (8.4-10.2); Carbon Dioxide 26 mmol/L (22-32); Chloride 89 mmol/L (98-107); Estimated Glomerular Filt Rate > 60.0 mL/min (>60); Globulin 3.5 g/dL (1.7-4.1); Glucose 145 mg/dL (80-110); Lipase 95 U/L (23-300); Potassium 4.4 mmol/L (3.4-5.1); Sodium 128 mmol/L (137-145); Total Protein 8.1 g/dL (6.3-8.2)
[2019-11-21 13:48] LABS: HEMOLYSIS 107 (0-50)
[2019-11-21 13:49] LABS: Aspartate Aminotransferase 48 IU/L (14-36)
[2019-11-21 14:10] VITALS: BP 152/70; PULSE 67; O2SAT 99
[2019-11-21 14:30] VITALS: BP 173/77; PULSE 64; O2SAT 100
--- NOTE | 2019-11-21 14:32 | DI.US.S_ITS ---
PROCEDURE: US ABDOMEN LIMITED INDICATIONS: RIGHT UPPER QUADRANT PAIN; ELEVATED BILIRUBIN TECHNIQUE: Real-time focused scanning was performed of the right upper quadrant, with image documentation. COMPARISON: [facility], US, US ABDOMEN COMPLETE, 11/18/2019, 13:23. FINDINGS: The liver again demonstrates increased hepatic echogenicity compatible with steatosis. There are small areas of likely focal sparing along the gallbladder fossa. The gallbladder demonstrates intraluminal biliary sludge as well as a few echogenic shadowing dependent gallstones measuring up to 0.5 cm. No gallbladder wall thickening or definite pericholecystic fluid. Patient was reportedly tender on exam exam. No intrahepatic biliary ductal dilatation. The chest pancreas appears unremarkable sonographically. IMPRESSION: 1. Cholelithiasis and biliary sludge without definite sonographic evidence of cholecystitis. 2. No biliary ductal dilatation. Dictated by: Freddy Machado M.D. on 11/21/2019 at 14:57 Approved by: Freddy Machado M.D. on 11/21/2019 at 15:00
[2019-11-21 16:00] VITALS: BP 162/71; PULSE 61; RESP 16; O2SAT 100
[2019-11-21 16:30] VITALS: BP 169/77; PULSE 80; RESP 18; O2SAT 100
[2019-11-21 17:00] VITALS: BP 143/71; PULSE 64; RESP 16; O2SAT 94
[2019-11-21 17:20] LABS: Bacteria Urine None Seen; RBC Urine None Seen (0-5/HPF); WBC Urine None Seen (0-5/HPF)
[2019-11-21 17:37] LABS: Culture Indicated Urine Cult Not Indicated
== END 2019-11-21 17:34 | disposition home or self-care (01) ==
PROVIDERS: Emergency Provider Nurse Practitioner Family; PCP Family Medicine
DX: K80.20 Calculus of gallbladder without cholecystitis without obstruction (principal); R10.84 Generalized abdominal pain; R11.2 Nausea with vomiting, unspecified; R79.89 Other specified abnormal findings of blood chemistry
CPT/HCPCS: 36415; 74022; 76705; 80053; 81003; 81015; 82150; 82962; 83690; 85025; 96374; 96375; 99284; C9113; J2405

== ENCOUNTER 2019-12-03 15:58 | Inpatient (IN) | payer MEDICARE, MEDICAID, SELFPAY ==
[2019-12-03 16:00] VITALS: BP 178/78; PULSE 68; RESP 18; TEMP 36.8; O2SAT 99
--- NOTE | 2019-12-03 16:05 | P.HP_ITS ---
History of Present Illness History of Present Illness Date Patient Seen: 12/03/19 Time Patient Seen: 16:05 Chief complaint: Dehydration, cholelithasis Narrative: Details: This is a 64-year-old woman with history of obesity, with a 100 lb weight loss in the past year, who presents to clinic with 3 weeks of ongoing abdominal pain and nausea. She was sent for right upper quadrant ultrasound and labs by her primary doctor, which revealed gallbladder sludge and bilirubin of 1.9. Her sodium was also noted to be 128. Her nausea got so bad for her that she went to the emergency department about 10 days ago. She states that she has not been eating well and is only currently having 2 Popsicles a day. She is trying to keep water down, but she says she is having difficulty with that in the afternoons. She has been trying to use Pedialyte, but she says that it is too suite and she gets very nauseated with it she has tried to use sublingual Zofran, but her nausea persists. ROS: Review of systems is positive for fatigue, weight loss, shortness of breath, di zziness, weakness. Thirteen system review is otherwise negative other than as mentioned below and in HPI. PE: GENERAL: Well groomed and cooperative. In moderate distress due to nausea and severe fatigue. Appears stated age. Answers questions promptly and appropriately. Vital signs noted. HENT: Normocephalic, atraumatic. Hearing intact. Oral mucosa is pink and somewhat dry. EYES: Conjunctiva pink, sclera white, no periorbital swelling. CARDIOVASCULAR: Regular rate. No pedal edema. RESPIRATORY: Non-tachypneic, breathing comfortably on room air. GASTROINTESTINAL: Abdomen soft and non-distended; obese, rounded, small umbilical hernia, nontender to palpation GENITALURINARY: No flank tenderness. MUSCULOSKELETAL: Equal tone and mass bilaterally. SKIN: Warm, dry, soft, appropriate color for ethnicity. No other lesions, rashes, or wounds. NEURO: Alert and Oriented X 3. Very fatigue, and difficulty holding up her head. Difficulty getting up to walk, shuffling gait, unsteady gait. No gross sensory deficits, or cognitive issues. PSYCH: Appropriate affect and mood. Vital Signs 12/03/19 15:12 Blood Pressure 128/78 Blood Pressure Location Lt brachial Blood Pressure Position Sitting Pulse Rate 82 Pulse Source Monitor Temperature 97.3 F L Temperature Source Temporal Artery Scan Pulse Oximetry 98 Oxygen Delivery Method room air Patient History Medical History FHx: SVT (supraventricular tachycardia) (Acute) Family & Social History Tobacco & Substance use: Smoking Status Former smoker alcohol intake frequency 0-2 drinks per day Substance Use Type does not use Meds Home Medications and Allergies Home Medications Medication Instructions Recorded Confirmed Type Glucose: Home Monitoring Kit 1 kit MISCELLANEOUS DIRECTED 09/05/18 12/03/19 History Test Strips - Freestyle 1 item MISCELLANEOUS TID 09/05/18 12/03/19 History naproxen sodium [Aleve] 1 dose PO PRN PRN 09/05/18 12/03/19 History glyburide 5 mg tablet 5 mg PO BID #60 tab 04/28/19 12/03/19 Rx thyroid (pork) 120 mg tablet 120 mg PO DAILY #30 tab 04/28/19 12/03/19 Rx trazodone 100 mg tablet See Rx Instructions .ROUTE 10/19/19 12/03/19 Rx .COMPLEX #30 tablet losartan 50 mg tablet 50 mg PO DAILY #90 tab 11/10/19 12/03/19 Rx amlodipine 5 mg tablet 5 mg PO DAILY #30 tab 11/17/19 12/03/19 Rx ondansetron 4 mg PO Q6H PRN #20 tab 11/21/19 12/03/19 Rx pantoprazole [Protonix] 20 mg PO DAILY #14 tab 11/21/19 12/03/19 Rx Allergies Allergy/AdvReac Type Severity Reaction Status Date / Time streptomycin [STREPTOMYCIN] Allergy Severe Throat Verified 12/03/19 15:10 swelled up Objective Imaging US - abdomen: Radiologist's impression: Right upper quadrant ultrasound shows sludge in the gallbladder Assessment & Plan Assessment and plan (1) Hyperbilirubinemia: Current visit: No Status: Acute (2) Weakness: Current visit: No Status: Acute (3) Nausea: Current visit: No Status: Acute (4) Hyponatremia: Current visit: No Status: Acute (5) Dehydration: Current visit: No Status: Acute (6) Cholelithiasis: Problem details: Assessment & Plan (1) Cholelithiasis: Status: Acute Qualifiers: Biliary obstruction: without biliary obstruction Cholecystitis presence: without cholecystitis Cholelithiasis location: gallbladder Qualified Code(s): K80.20 - Calculus of gallbladder without cholecystitis without obstruction Assessment and Plan - Ange Dawson MD: Had a long discussion with the patient regarding her symptoms. I am very concerned with her overall appearance which is of someone who is very weak, tremulous, unsteady in her gait, and so fatigued she is having difficulty holding up her head while she is talking to me. She had great difficulty getting up from the chair to get on the exam table. I am very concerned about letting her walk out of the office that she may pass out or fall just trying to get her car. I am concerned that her labs show hyponatremia, and she has said that since then she has not been able to keep very much down at all. I do not think she is a great candidate for surgery right now, as she is dehydrated and hyponatremic. I am recommending to her that she allow us to admit her, get her in better shape for surgery, and plan on surgery in the next few days if possible. 25 minutes were spent face to face with the patient. More than 50% of the time was spent in counseling and co-ordination of care regarding her symptoms, potential for surgery, risks and benefits of surgery, need for hospital admission, risks and benefits of going home versus staying in the hospital. The patient is very concerned about her father who is taking care of her mother who is in the advanced age of Alzheimer's. This patient has been helping to manage things at home, but she has recently been too weak to do any of the cooking or taking care of her mother. I recommended to her that we get her in better shape so that she is able to go back to helping her family. She is willing to consider this, and we will go ahead and direct admit her. Plan Direct admit for dehydration, hyponatremia, and symptomatic cholelithiasis Qualifiers: Biliary obstruction: without biliary obstruction Cholecystitis presence: without cholecystitis Cholelithiasis location: gallbladder Qualified Code(s): K80.20 - Calculus of gallbladder without cholecystitis without obstruction Current visit: No Status: Acute (7) Abdominal pain: Qualifiers: Abdominal location: generalized Qualified Code(s): R10.84 - Generalized abdominal pain Current visit: No Status: Acute (8) FHx: SVT (supraventricular tachycardia): Current visit: No Status: Acute (9) Hypertension: Current visit: No Status: Chronic (10) Depression: Current visit: No Status: None (11) Diabetes mellitus: Current visit: No Status: None (12) Elevated liver function tests: Current visit: No Status: None (13) Hyperlipidemia: Current visit: No Status: None (14) Obesity: Current visit: No Status: None Quality VTE Deep Vein Thrombosis/Pulmonary Embolism Present on Admission: No
[2019-12-03] MEDS: DEXTROSE 5%-0.9% NS 1,000 ML 100 ML IV (16:37)
[2019-12-03] MEDS: ONDANSETRON 4 MG/2 ML INJ IV (16:37)
[2019-12-03 16:44] VITALS: BMI 30.2
[2019-12-03 17:00] LABS: Add Manual Diff / Slide Review NO; Alanine Aminotransferase 22 IU/L (<35); Albumin 4.2 g/dL (3.5-5.0); Albumin Globulin Ratio 1.4 (1.0-2.8); Alkaline Phosphatase 64 U/L (38-126); Aspartate Aminotransferase 32 IU/L (14-36); BUN Creatinine Ratio 12.3 (6-22); Basophils Absolute Auto 100 /uL (0-100); Bilirubin Total 1.3 mg/dL (0.2-1.3); Blood Urea Nitrogen 8 mg/dL (7-17); Calcium 9.3 mg/dL (8.4-10.2); Carbon Dioxide 28 mmol/L (22-32); Chloride 91 mmol/L (98-107); Eosinophils Absolute Auto 0 /uL (0-450); Eosinophils Percent Auto 0.9 % (2-4); Estimated Glomerular Filt Rate > 60.0 mL/min (>60); Globulin 3.1 g/dL (1.7-4.1); Glucose 127 mg/dL (80-110); HEMOLYSIS < 15 (0-50); Hematocrit 39.2 % (36-46); Hemoglobin 13.9 g/dL (12.0-16.0); Lymphocytes Absolute Auto 900 /uL (1100-4500); Lymphocytes Percent Auto 16.8 % (25-40); Mean Corpuscular HGB Conc 35.5 % (30-36); Mean Corpuscular Hemoglobin 34.8 PG (26-34); Monocytes Absolute Auto 400 /uL (0-900); Neutrophils Absolute Auto 4100 /uL (1500-7000); Neutrophils Percent Auto 74.3 % (50-75); Phosphorous 3.2 mg/dL (2.8-4.1); Platelet Count 176 X10^3/uL (150-400); Red Cell Distribution Width 12.6 % (11.6-14.8); Sodium 129 mmol/L (137-145); Total Protein 7.3 g/dL (6.3-8.2); White Blood Cell Count 5.5 X10^3/uL (4.5-11.0)
--- NOTE | 2019-12-03 17:50 | PM.HP.1 ---
History of Present Illness History of Present Illness Date Patient Seen: 12/03/19 Time Patient Seen: 17:50 Chief complaint: Dehydration, cholelithasis Narrative: 64-year-old female with a history of hypertension diabetes hyperlipidemia and morbid obesity was seen in the clinic a couple of weeks ago for ongoing nausea weight loss and not feeling well. Patient states her symptoms have been going on for a number of months. She was having some dental procedures done and had all of her teeth removed was having a difficult time eating because of that. She was then having a plate placed and dentures and then has ran into complications. And so she has been without dental appliances and T for some time. She thought initially that was affecting her eating the symptoms progressively got worse to the point where she became quite nauseated and feeling sick. She had blood work done an ultrasound done. The blood work showed hyponatremia mild elevation of alkaline phosphatase and bilirubin and liver enzymes ultrasound shows biliary sludge. The patient appointment to to see me after those lab results and patient went to the emergency room because she still was not feeling well. Patient had increasing p.o. intake having hard time keeping anything at all in her stomach because she felt so nauseated was only eating 2 popsicles a day. In the emergency room repeat laboratory evaluation was done. Patient then saw me in the clinic yesterday and we had an appointment for her to see the surgeons. Surgeon evaluated her and admitted her to the hospital because of dehydration ongoing nausea and hyponatremia. Patient states she still not feeling well she is weak she is tired. She is quite nauseated not hungry. She has only been had able to have 2 popsicles. Not taking lots of fluids. She has not had any difficulty with bowel movements but she has noticed a decreased frequency. She is not having any chest pain or shortness of breath. Patient History Medical History FHx: SVT (supraventricular tachycardia) (Acute) Family & Social History Social History: household members family Prior Living Arrangements House Safety & Behavioral: Feels Safe in Current Yes Environment Been Physically Hurt or No Threatened By a Person Suicidal Ideation Description None Suicide Plan Description No Plan Tobacco & Substance use: Smoking Status Former smoker alcohol intake current alcohol intake frequency 0-2 drinks per day Substance Use Type does not use Meds Home Medications and Allergies Home Medications Medication Instructions Recorded Confirmed Type Glucose: Home Monitoring Kit 1 kit MISCELLANEOUS DIRECTED 09/05/18 12/03/19 History Test Strips - Freestyle 1 item MISCELLANEOUS TID 09/05/18 12/03/19 History naproxen sodium [Aleve] 1 dose PO PRN PRN 09/05/18 12/03/19 History trazodone 100 mg tablet See Rx Instructions .ROUTE 10/19/19 12/03/19 Rx .COMPLEX #30 tablet losartan 50 mg tablet 50 mg PO DAILY #90 tab 11/10/19 12/03/19 Rx amlodipine 5 mg tablet 5 mg PO DAILY #30 tab 11/17/19 12/03/19 Rx ondansetron 4 mg PO Q6H PRN #20 tab 11/21/19 12/03/19 Rx thyroid (pork) [[place] Thyroid] 120 mg PO DAILY 12/03/19 12/03/19 History Allergies Allergy/AdvReac Type Severity Reaction Status Date / Time streptomycin [STREPTOMYCIN] Allergy Severe Throat Verified 12/03/19 15:10 swelled up Exam Vital Signs (past 8 hours): - 12/03/19 16:00 Temperature 98.3 F Pulse Rate 68 Respiratory Rate 18 Blood Pressure 178/78 H Pulse Oximetry 99 Narrative Exam Narrative: Gen.: Alert and oriented x3 no apparent distress. HEENT: NCAT PERRLA tympanic membranes are clear nares are patent oral mucosa is moist no tonsillar hypertrophy neck is supple without lymphadenopathy no thyroid enlargement. Cardio: S1-S2 regular rate and rhythm no murmurs appreciated. Respiratory: Lungs are clear to auscultation no wheezes or crackles normal respiratory effort. Abdomen: Soft nontender no rebound or guarding no liver spleen enlargement no appreciable hernias Extremities: Full range of motion no appreciable weakness no cyanosis or edema. Neurologic: Grossly intact. Objective Labs Result Diagrams: 12/03/19 16:34 12/03/19 16:34 Labs: Laboratory Results - last 24 hr 12/03/19 12/03/19 16:34 16:34 WBC 5.5 RBC 4.00 Hgb 13.9 Hct 39.2 MCV 98.0 MCH 34.8 H MCHC 35.5 RDW 12.6 Plt Count 176 Neut % (Auto) 74.3 Lymph % (Auto) 16.8 L [place] % (Auto) 7.0 Eos % (Auto) 0.9 L Baso % (Auto) 1.0 Neut # (Auto) 4100 Lymph # (Auto) 900 L [place] # (Auto) 400 Eos # (Auto) 0 Baso # (Auto) 100 Sodium 129 L Potassium 4.0 Chloride 91 L Carbon Dioxide 28 BUN 8 Creatinine 0.65 Estimated GFR > 60.0 BUN/Creatinine Ratio 12.3 Glucose 127 H Calcium 9.3 Phosphorus 3.2 Magnesium 2.0 Total Bilirubin 1.3 AST 32 ALT 22 Alkaline Phosphatase 64 Total Protein 7.3 Albumin 4.2 Globulin 3.1 Albumin/Globulin Ratio 1.4 Assessment & Plan Assessment & Plan narrative: Cholelithiasis. Patient has cholelithiasis elevated alkaline phosphatase bilirubin and nausea. All this would be consistent with gallbladder disease she is having poor p.o. intake. She will be admitted to the hospital for under the surgical service. Patient in all likelihood will need her gallbladder removed. Nausea dehydration. Patient has ongoing nausea and dehydration. She will be admitted to at the hospital inpatient for IV fluid hydration antiemetics. And clear liquid diet as tolerated. Patient has significant poor p.o. intake has had loss of appetite and significant weight loss. Hyponatremia. Patient's sodium is 128. Partly due to volume depletion decreased p.o. intake. Will monitor closely electrolytes place her on D5 normal saline. Recheck her sodium level in the morning. Liberalize salt in her diet. Will check magnesium and phosphorus. Morbid obesity. She has lost a lot a weight. Her obesity certainly would complicate her care specially from a surgical standpoint and recovery due to weakness and difficulty with ambulation. Mild nutrition severe. Patient has lost a significant amount of weight has had now p.o. intake for a number of weeks now. Will provide nutritional consultation when patient is able to start eating. In all likelihood she will need undergo surgery. Hypertension. Patient has blood pressure medications she is on losartan and amlodipine. Will hold her blood pressure monitor closely her blood pressure during her hospital stay. Hypothyroidism. Continue with thyroid replacement. She is on 120 mcg. Diabetes type 2. Not on insulin or medication at this point continue to monitor for signs of hypoglycemia during her hospital stay. Quality VTE Deep Vein Thrombosis/Pulmonary Embolism Present on Admission: No
[2019-12-03] MEDS: SODIUM CHLORIDE 0.9% 500 ML 1000 ML IV (18:22)
[2019-12-03 19:43] VITALS: BP 151/91; PULSE 58; RESP 18; TEMP 36.2; O2SAT 100
[2019-12-03] MEDS: TRAZODONE 100 MG TABLET PO (21:28)
[2019-12-03 23:30] VITALS: BP 149/58; PULSE 63; RESP 16; TEMP 36.3; O2SAT 100
--- NOTE | 2019-12-03 23:48 | PC.NURSE ---
Admit/Evening Shift Note- Patient arrived via wheelchair from [place] surgeons office as direct admit for dehydration. Patient alert and oriented and able to make needs known to staff. Admit questions done, medications reviewed, and physical assessment completed. No complaints of pain. Patient complainted of nausea and did have an episopde of vomiting prior to getting IV line in and giving IV zofran. IV fluids funning and bolus of NS given emiliano Dr Brown. Patient oriented to bed and bed controls, room, bathroom, lights, phone, menu, and call bravo/tv remote. safety measures in place. patient agree to call for assistance. call bravo and phone within reach. will continue to monitor.
[2019-12-04] VITALS (13 sets, daily range): BP systolic 109–181; BP diastolic 52–82; PULSE 54–97; RESP 11–20; TEMP 36.1–37.2; O2SAT 95–109; BMI 30.1
--- NOTE | 2019-12-04 | PATH_ITS ---
[facility] Accession Number: [id number] . 01 Material submitted: . gallbladder - GALLBLADDER AND CONTENTS . 02 Diagnosis: Gallbladder and Contents, Cholecystectomy: Chronic cholecystitis. One benign cystic duct lymph node. No evidence of neoplasm. [facility] 12/08/2019 1155 Local . 02 Electronically signed: . Christopher Grey MD, PhD, Pathologist NPI- [id number] . 01 Gross description: . Received in formalin, labeled gallbladder and contents, is an intact gallbladder (length-9.2 cm, diameter-4.5 cm) with ferrara-purple, smooth, shiny serosa and a patent cystic duct. A 0.8 x 0.8 x 0.5 cm lymph node is identified. The lumen contains brown-green, thick, paste-like material. The mucosa is dark green, smooth and flat. The wall is up to 0.1 cm thick. No nodules, masses or lesions are identified. Section code: (A1) cystic duct resection margin and two serial sections from the body; (A2) two longitudinal sections from the fundus; (A3) one bisected lymph node. ([id number]) /MRV 12/06/2019 2231 Local . 02 Pathologist provided ICD-10: K81.1 . 02 CPT . 976519 Performed at: 01 [facility] [address] [place] [address], [place], [place] [id number] MD Freddy Prescott MD Phone: [phone] Performed at: 02 [facility] [address] [place], [place] [id number] MD Fatoumata Delacruz MD Phone: [phone]
[2019-12-04] MEDS: ONDANSETRON 4 MG/2 ML INJ IV ×2 (01:14→08:15)
[2019-12-04 05:39] LABS: Add Manual Diff / Slide Review NO; Basophils Absolute Auto 0 /uL (0-100); Eosinophils Absolute Auto 100 /uL (0-450); Eosinophils Percent Auto 1.2 % (2-4); Hematocrit 37.3 % (36-46); Lymphocytes Absolute Auto 900 /uL (1100-4500); Lymphocytes Percent Auto 17.9 % (25-40); Mean Corpuscular HGB Conc 34.9 % (30-36); Mean Corpuscular Hemoglobin 34.3 PG (26-34); Mean Corpuscular Volume 98.4 fL (80-100); Monocytes Absolute Auto 400 /uL (0-900); Monocytes Percent Auto 7.9 % (3-14); Neutrophils Absolute Auto 3700 /uL (1500-7000); Platelet Count 164 X10^3/uL (150-400); Red Blood Cell Count 3.79 X10^6/uL (4.0-5.2); Red Cell Distribution Width 12.6 % (11.6-14.8); White Blood Cell Count 5.2 X10^3/uL (4.5-11.0)
[2019-12-04 05:44] LABS: Alanine Aminotransferase 19 IU/L (<35); Albumin 3.7 g/dL (3.5-5.0); Albumin Globulin Ratio 1.3 (1.0-2.8); Alkaline Phosphatase 57 U/L (38-126); Aspartate Aminotransferase 27 IU/L (14-36); BUN Creatinine Ratio 10.2 (6-22); Bilirubin Total 1.1 mg/dL (0.2-1.3); Blood Urea Nitrogen 6 mg/dL (7-17); Calcium 8.9 mg/dL (8.4-10.2); Carbon Dioxide 27 mmol/L (22-32); Chloride 96 mmol/L (98-107); Estimated Glomerular Filt Rate > 60.0 mL/min (>60); Globulin 2.9 g/dL (1.7-4.1); Glucose 161 mg/dL (80-110); HEMOLYSIS < 15 (0-50); Phosphorous 3.6 mg/dL (2.8-4.1); Potassium 3.4 mmol/L (3.4-5.1); Sodium 129 mmol/L (137-145); Total Protein 6.6 g/dL (6.3-8.2)
[2019-12-04] MEDS: DEXTROSE 5%-0.9% NS 1,000 ML 100 ML IV (05:59)
[2019-12-04] MEDS: PANTOPRAZOLE 20 MG TABLET PO (06:01)
[2019-12-04 07:28] LABS: Lipase 78 U/L (23-300)
--- NOTE | 2019-12-04 07:44 | P.PN_ITS ---
Subjective Subjective Date Patient Seen: 12/04/19 Time Patient Seen: 07:15 Interval history: Pt admitted last night for three weeks of nausea and vomiting. Nausea medicine is helping somewhat. She denies pain. Exam Vital Signs (past 8 hours): Oxygen Delivery Method Room Air Oxygen Flow Rate 0 Narrative Exam Narrative: ROS: Review of systems is positive for nausea, vomiting, fatigue, weight loss, shortness of breath, dizziness, weakness. Thirteen system review is otherwise negative other than as mentioned below and in HPI. PE: GENERAL: Resting in bed, appears very fatigued. HENT: Normocephalic, atraumatic. Hearing intact. Oral mucosa is pink and somewhat dry. EYES: Conjunctiva pink, sclera white, no periorbital swelling. CARDIOVASCULAR: Regular rate. No pedal edema. RESPIRATORY: Non-tachypneic, breathing comfortably on room air. GASTROINTESTINAL: Abdomen soft and non-distended; obese, rounded, small umbilical hernia, nontender to palpation GENITALURINARY: No flank tenderness. MUSCULOSKELETAL: Equal tone and mass bilaterally. SKIN: Warm, dry, soft, appropriate color for ethnicity. No other lesions, rashes, or wounds. NEURO: Alert and Oriented X 3. Very fatigue, and difficulty holding up her head. Difficulty getting up to walk, shuffling gait, unsteady gait. No gross sensory deficits, or cognitive issues. PSYCH: Appropriate affect and mood. Objective Labs Result Diagrams: 12/04/19 05:00 12/04/19 05:00 Labs: Laboratory Results - last 24 hr 12/03/19 12/03/19 12/04/19 16:34 16:34 05:00 WBC 5.5 5.2 RBC 4.00 3.79 L Hgb 13.9 13.0 Hct 39.2 37.3 MCV 98.0 98.4 MCH 34.8 H 34.3 H MCHC 35.5 34.9 RDW 12.6 12.6 Plt Count 176 164 Neut % (Auto) 74.3 72.0 Lymph % (Auto) 16.8 L 17.9 L [place] % (Auto) 7.0 7.9 Eos % (Auto) 0.9 L 1.2 L Baso % (Auto) 1.0 1.0 Neut # (Auto) 4100 3700 Lymph # (Auto) 900 L 900 L [place] # (Auto) 400 400 Eos # (Auto) 0 100 Baso # (Auto) 100 0 Sodium 129 L Potassium 4.0 Chloride 91 L Carbon Dioxide 28 BUN 8 Creatinine 0.65 Estimated GFR > 60.0 BUN/Creatinine Ratio 12.3 Glucose 127 H Calcium 9.3 Phosphorus 3.2 Magnesium 2.0 Total Bilirubin 1.3 AST 32 ALT 22 Alkaline Phosphatase 64 Total Protein 7.3 Albumin 4.2 Globulin 3.1 Albumin/Globulin Ratio 1.4 Lipase 12/04/19 12/04/19 05:00 05:00 WBC RBC Hgb Hct MCV MCH MCHC RDW Plt Count Neut % (Auto) Lymph % (Auto) [place] % (Auto) Eos % (Auto) Baso % (Auto) Neut # (Auto) Lymph # (Auto) [place] # (Auto) Eos # (Auto) Baso # (Auto) Sodium 129 L Potassium 3.4 Chloride 96 L Carbon Dioxide 27 BUN 6 L Creatinine 0.59 Estimated GFR > 60.0 BUN/Creatinine Ratio 10.2 Glucose 161 H Calcium 8.9 Phosphorus 3.6 Magnesium 2.0 Total Bilirubin 1.1 AST 27 ALT 19 Alkaline Phosphatase 57 Total Protein 6.6 Albumin 3.7 Globulin 2.9 Albumin/Globulin Ratio 1.3 Lipase 78 Assessment & Plan Assessment and plan (1) Hyperbilirubinemia: Current visit: No Status: Acute (2) Weakness: Current visit: No Status: Acute (3) Nausea: Current visit: No Status: Acute (4) Hyponatremia: Current visit: No Status: Acute (5) Dehydration: Current visit: No Status: Acute (6) Cholelithiasis: Problem details: Assessment & Plan (1) Cholelithiasis: Status: Acute Qualifiers: Biliary obstruction: without biliary obstruction Cholecystitis presence: without cholecystitis Cholelithiasis location: gallbladder Qualified Code(s): K80.20 - Calculus of gallbladder without cholecystitis without obstruction Assessment and Plan - Ange Dawson MD: Had a long discussion with the patient regarding her symptoms. I am very c oncerned with her overall appearance which is of someone who is very weak, tremulous, unsteady in her gait, and so fatigued she is having difficulty holding up her head while she is talking to me. She had great difficulty getting up from the chair to get on the exam table. I am very concerned about letting her walk out of the office that she may pass out or fall just trying to get her car. I am concerned that her labs show hyponatremia, and she has said that since then she has not been able to keep very much down at all. I do not think she is a great candidate for surgery right now, as she is dehydrated and hyponatremic. I am recommending to her that she allow us to admit her, get her in better shape for surgery, and plan on surgery in the next few days if possible. 25 minutes were spent face to face with the patient. More than 50% of the time was spent in counseling and co-ordination of care regarding her symptoms, potential for surgery, risks and benefits of surgery, need for hospital admission, risks and benefits of going home versus staying in the hospital. The patient is very concerned about her father who is taking care of her mother who is in the advanced age of Alzheimer's. This patient has been helping to manage things at home, but she has recently been too weak to do any of the cooking or taking care of her mother. I recommended to her that we get her in better shape so that she is able to go back to helping her family. She is willing to consider this, and we will go ahead and direct admit her. Plan Direct admit for dehydration, hyponatremia, and symptomatic cholelithiasis Qualifiers: Biliary obstruction: without biliary obstruction Cholecystitis pr esence: without cholecystitis Cholelithiasis location: gallbladder Qualified Code(s): K80.20 - Calculus of gallbladder without cholecystitis without obstruction Current visit: No Status: Acute (7) Abdominal pain: Qualifiers: Abdominal location: generalized Qualified Code(s): R10.84 - Generalized abdominal pain Current visit: No Status: Acute Assessment & Plan narrative: 64 yo woman admitted for intractable nausea and vomiting with known gall bladder sludge. Risks and benefits of laparoscopic possible open cholecystectomy were discussed with the patient including risk of bleeding, infection, damage to nearby structures, bile duct injury, bile leak, persistence of nausea and vomiting in spite of cholecystectomy. The patient desires to proceed. Plan: NPO IV fluids zosyn IV consent for laparoscopic possible open cholecystectomy Time Spent With Patient Time with patient: 15-24 minutes Quality VTE Deep Vein Thrombosis/Pulmonary Embolism Present on Admission: No
--- NOTE | 2019-12-04 07:56 | PM.PN.1 ---
Subjective Subjective Date Patient Seen: 12/04/19 Time Patient Seen: 07:56 Interval history: Patient seen and evaluated this morning. She says she feels better. Her nausea is in the background. She says the fluids made her feel good she is sitting up in bed brushing her hair. She has no significant abdominal pain. She says she is looking forward to surgery this afternoon. She thinks that will help. She says of core she is not hungry. She has no concerns of headache dizziness chest pain shortness of breath. Her vital signs have remained stable other than her blood pressure being high and she is afebrile. Exam Vital Signs (past 8 hours): Oxygen Delivery Method Room Air Oxygen Flow Rate 0 Narrative Exam Narrative: Gen.: Alert and oriented x3 no apparent distress. HEENT: NCAT PERRLA tympanic membranes are clear nares are patent oral mucosa is moist no tonsillar hypertrophy neck is supple without lymphadenopathy no thyroid enlargement. Cardio: S1-S2 regular rate and rhythm no murmurs appreciated. Respiratory: Lungs are clear to auscultation no wheezes or crackles normal respiratory effort. Abdomen: Soft nontender no rebound or guarding no liver spleen enlargement no appreciable hernias Extremities: Full range of motion no appreciable weakness no cyanosis or edema. Neurologic: Grossly intact. Objective Labs Result Diagrams: 12/04/19 05:00 12/04/19 05:00 Labs: Laboratory Results - last 24 hr 12/03/19 12/03/19 12/04/19 16:34 16:34 05:00 WBC 5.5 5.2 RBC 4.00 3.79 L Hgb 13.9 13.0 Hct 39.2 37.3 MCV 98.0 98.4 MCH 34.8 H 34.3 H MCHC 35.5 34.9 RDW 12.6 12.6 Plt Count 176 164 Neut % (Auto) 74.3 72.0 Lymph % (Auto) 16.8 L 17.9 L [place] % (Auto) 7.0 7.9 Eos % (Auto) 0.9 L 1.2 L Baso % (Auto) 1.0 1.0 Neut # (Auto) 4100 3700 Lymph # (Auto) 900 L 900 L [place] # (Auto) 400 400 Eos # (Auto) 0 100 Baso # (Auto) 100 0 Sodium 129 L Potassium 4.0 Chloride 91 L Carbon Dioxide 28 BUN 8 Creatinine 0.65 Estimated GFR > 60.0 BUN/Creatinine Ratio 12.3 Glucose 127 H Calcium 9.3 Phosphorus 3.2 Magnesium 2.0 Total Bilirubin 1.3 AST 32 ALT 22 Alkaline Phosphatase 64 Total Protein 7.3 Albumin 4.2 Globulin 3.1 Albumin/Globulin Ratio 1.4 Lipase 12/04/19 12/04/19 05:00 05:00 WBC RBC Hgb Hct MCV MCH MCHC RDW Plt Count Neut % (Auto) Lymph % (Auto) [place] % (Auto) Eos % (Auto) Baso % (Auto) Neut # (Auto) Lymph # (Auto) [place] # (Auto) Eos # (Auto) Baso # (Auto) Sodium 129 L Potassium 3.4 Chloride 96 L Carbon Dioxide 27 BUN 6 L Creatinine 0.59 Estimated GFR > 60.0 BUN/Creatinine Ratio 10.2 Glucose 161 H Calcium 8.9 Phosphorus 3.6 Magnesium 2.0 Total Bilirubin 1.1 AST 27 ALT 19 Alkaline Phosphatase 57 Total Protein 6.6 Albumin 3.7 Globulin 2.9 Albumin/Globulin Ratio 1.3 Lipase 78 Assessment & Plan Assessment & Plan narrative: Cholelithiasis. Patient will be having surgery later today. EKG looks good. Will start her on a beta-barbi metoprolol in addition to her regular antihypertensive medication as her blood pressure is a little bit high. Nausea dehydration. Improved after IV fluids her nausea is also improved. Although she does not feel hungry. She sitting up but the could side of the bed looking much stronger than yesterday. Patient has good urine output. Hyponatremia. Sodium still quite low. Although safe for surgery. This has been chronic over the past month or so. I do not think she needs 3% saline at this point bring it back up. Will monitor closely. And make some adjustments if needed after surgery. Morbid obesity. Previously BMI was above 40. It is now down to 30 due to all her weight loss. Will compound her surgical and postoperative care. Malnutrition severe. Still not eating in lieu of surgery today. Hopefully after surgery she will feel better and we can start to feed her slowly orally. Will have to take that into consideration for the recovery process. Hypertension. Restart patient's blood pressure medication and a beta-barbi for surgery. Hypothyroidism. Continue with thyroid replacement. She is on 120 mcg of [place] thyroid. Diabetes type 2. Diet controlled at home. Fasting blood sugars have been elevated here will provide insulin sliding scale coverage. DVT prophylaxis with SCDs Disposition plan surgery today Quality VTE Deep Vein Thrombosis/Pulmonary Embolism Present on Admission: No
[2019-12-04] MEDS: METOPROLOL ER 25 MG TABLET PO ×2 (09:40→21:43)
[2019-12-04] MEDS: THYROID, PORK 60 MG TABLET 120 MG PO (09:40)
[2019-12-04] MEDS: LOSARTAN 50 MG TABLET PO (09:40)
[2019-12-04] MEDS: PROCHLORPERAZINE 10 MG/2 ML VIAL IV (13:09)
[2019-12-04] MEDS: DEXTROSE 5%-0.9% NS 1,000 ML 150 ML IV (13:09)
[2019-12-04] MEDS: INSULIN ASPART 100 UNIT/ML INSULN PEN SUBCUT ×2 (13:11→21:40)
--- NOTE | 2019-12-04 13:19 | CM.DANOTE ---
DCP Assessment: EMR reviewed: Patient is 64 yr old female was admitted for dehydration and Cholelithasis. Patient is having surgery today preformed by Dr. Dawson. Patients PCP is Dr. Brown. CM/RN met with patient at the bedside and explained role. Patient was alert and oriented x3 at time of CM/Rn visit. Patient Currently lives with her parents who she cares for in a multiple level home but the home has a stair lift system to get upstairs and down. Patient is Independent with all ADL's and drives at baseline. patient currently has two friends who will be coming in to help her with her recovery as well as assisting her parents. CM/RN gave patient information about private pay care givers that her father is planning on hiring to help with her mothers care. patient Currently uses a cane at home when she is planning on walking long distances but doesn't usually need it. I: medicare and medicaid Plan: D/C home with family and friends when medically stable to do so. No identified D/C planning needs noted at this time. CM department will follow and assist with any new D/C planning needs that might arise. Jayleen Vera RN Discharge Planning/Care Management Advanced directive, confirm from FAMILY Start: 12/03/19 16:53 Freq: Q24H Status: Active Protocol: Document 12/03/19 16:53 AGW (Rec: 12/03/19 23:41 AGW [id number]) Advance Directive, confirm on record Time 18:00 Person contacted patient Copy received No CM Discharge Assessment Start: 12/04/19 13:17 Freq: Status: Active Protocol: Document 12/04/19 13:18 HS (Rec: 12/04/19 13:19 HS [id number]) Discharge Planning Assessment Assigned Landcare Facilitator Jayleen Vera RN Advance Directives? Yes History Provided By Patient,Medical Record Has Patient been admitted in last 30 No days? Prior Living Arrangements House Household Members family Type of transporation used prior to Drives own vehicle admit Independent with ADL's Yes Is patient alert and oriented? Yes Barriers to Discharge No Discharge Plan Home Referrals Initiated None needed Whiteboard Updated in Patient Room with Yes name and ext. # of Landcare Facilitator Review Status In Process Next Review Type Continued Stay Review
--- NOTE | 2019-12-04 14:55 | PC.NURSE ---
Patient experience intermittent n/v. Held AM medications until 45 minutes after IV zofran administered, yet after taking this morning's prescribed PO medications patient had small emisis. This RN was not bedside during sickness, retrieved bag, did not visualize medications. Patient c/o continuing nausea. BP elevated during noon vitals, faxed OR updating sx on patient status. Received new prescription for Compazine. Administered to patient. Donald is currently sitting bedside. Denies N/V at this time.
[2019-12-04] MEDS: LACTATED RINGERS 1,000 ML 42 ML IV (15:55)
--- NOTE | 2019-12-04 15:56 | SUR.HOLD ---
Arrived to preop somewhat sleepy but able to answer questions appropriately. Sleepiness r/t compazine given for emesis. Her fathers is at BS. Pt in stable condition.
--- NOTE | 2019-12-04 16:31 | SUR.OPER ---
Supine on padded OR bed, head on pillow, arms secured on padded arm boards at <90 degrees abduction, legs uncrossed, safety belt at thigh, tape over blanket over lower legs.
[2019-12-04] MEDS: PIPERACILLIN-TAZO 3.375 GM/50 ML FROZ.PIGGY IV (16:45)
[2019-12-04] MEDS: BUPIVACAINE 0.25% W/ EPI 30 ML VIAL 60 ML INJ (17:14)
--- NOTE | 2019-12-04 18:29 | PM.OP.1 ---
Operative Date/Time/Diagnoses Date of procedure: 12/04/19 Time of procedure: 18:29 Pre-op diagnosis: severe nausea, gall bladder sludge Post-op diagnosis: same Procedure & Clinicians Procedure: laparoscopic cholecystectomy Same procedure as scheduled: Yes Indications: severe nausea, gall bladder sludge Surgeon: Ange Dawson Click Yes if Unassisted: Yes Anesthesia Type: General Operative Notes Findings: Large, flaccid gall bladder Specimen(s): other (gall bladder and contents) Estimated Blood Loss (mL): 1 Blood products transfused: none Procedure in detail: The patient was brought into the operating room and placed supine on the OR table. Sequential compression devices were placed on both legs and turned on. Appropriate perioperative antibiotics were given prior to the start of surgery. General anesthesia was induced the patient was intubated. The abdomen was prepped and draped in sterile fashion. Surgical time-out was conducted. Local anesthetic was injected under the skin just superior to the umbilicus and a 5 mm vertical incision was made at this site. The umbilical stalk was grasped with a Agusto and elevated. A Veress needle was passed through the fascia into proper position. The position was tested with a saline drop test which was appropriate for intra-abdominal Veress needle placement. The abdomen was then insufflated in the usual fashion. Once insufflated to 15 mm Hg the Veress needle was removed and a 5 mm optical trocar was placed under direct vision using a 5 mm 30 degree scope. Once the camera was inside the abdomen I took a look around. There was no injury from port placement. Two additional ports were placed in a similar fashion in the right upper quadrant and a 10 mm port was placed in the epigastrium. Through the 2 lateral ports the gallbladder was grasped and elevated and the infundibulum was retracted laterally to the patient's right. This exposed the gallbladder hilum and allowed for dissection of the cystic duct and cystic artery. There were some adhesions to the omentum which were taken down with L hook cautery. Once the cystic duct and artery were completely dissected out and I was able to see liver behind and between both structures without any other structures in the way, giving us the critical view of safety. At this point I triply clipped both structures on the patient's side and put a single clip on the gallbladder side of both the cystic duct and artery. Both structures were then divided with laparoscopic [place]. Following this the gallbladder was gradually dissected free from the liver using L hook cautery. Once the gallbladder was entirely freed, it was placed inside an Endo-Catch bag and removed through the epigastric port site. I did not have to enlarge the epigastric site in order to get the gallbladder out. Once it was out and passed off to the back table I then took another look inside the abdomen. I suctioned clean any remaining blood or fluid on the lateral side of the liver and in the subhepatic space. I also suctioned some serosanguineous fluid from the pelvis. There was mild active bleeding from the gallbladder fossa which was controlled with cautery and surgicell. The epigastric port site was then closed with Arun Butt using an 0 Vicryl suture. At this point the insufflation was removed from the abdomen and the epigastric site was closed with 3 O Vicryl in the subcutaneous layers, and 4 Monocryl in the skin. The remaining port sites were closed with 4 Monocryl in the skin. Each port site was sealed with Dermabond. Local anesthetic was given at each of the port sites and in the fascia. This concluded the procedure. At this point the needle sponge and instrument counts were correct. The gallbladder was passed off the table for pathology. The patient tolerated the procedure well. Patient was awakened from anesthesia and extubated. She was transferred to the postanesthesia care unit in stable condition. Complications: none Post-operative Condition: stable Disposition: PACU
[2019-12-04] MEDS: SODIUM CHLORIDE 0.9% 1,000 ML 1000 ML IV (21:44)
[2019-12-04] MEDS: TRAZODONE 100 MG TABLET PO (21:44)
[2019-12-05] VITALS (7 sets, daily range): BP systolic 129–158; BP diastolic 58–84; PULSE 53–64; RESP 14–17; TEMP 36.1–36.6; O2SAT 97–100
[2019-12-05] MEDS: DEXTROSE 5%-0.9% NS 1,000 ML 150 ML IV ×2 (00:21→07:30)
--- NOTE | 2019-12-05 00:33 | PC.NURSE ---
Mat Packer Note: 0015: Awake, up to bathroom with sba. IV in place in lt forearm with D5NS infusing at 150cc/hr. Vital signs stable. Abd. incisions X3 open to air, with some bruising noted at each site. Pt states she is feeling well. She declines SCDs, states they make her feel claustrophobic.
[2019-12-05 05:19] LABS: Add Manual Diff / Slide Review NO; Basophils Absolute Auto 0 /uL (0-100); Basophils Percent Auto 0.4 % (0-2); Eosinophils Absolute Auto 0 /uL (0-450); Hematocrit 41.3 % (36-46); Lymphocytes Absolute Auto 600 /uL (1100-4500); Lymphocytes Percent Auto 7.5 % (25-40); Mean Corpuscular HGB Conc 33.9 % (30-36); Mean Corpuscular Volume 100.2 fL (80-100); Monocytes Absolute Auto 500 /uL (0-900); Monocytes Percent Auto 5.4 % (3-14); Neutrophils Absolute Auto 7400 /uL (1500-7000); Neutrophils Percent Auto 86.7 % (50-75); Platelet Count 177 X10^3/uL (150-400); Red Blood Cell Count 4.12 X10^6/uL (4.0-5.2); Red Cell Distribution Width 12.8 % (11.6-14.8); White Blood Cell Count 8.5 X10^3/uL (4.5-11.0)
[2019-12-05 05:36] LABS: Alanine Aminotransferase 39 IU/L (<35); Albumin Globulin Ratio 1.3 (1.0-2.8); Alkaline Phosphatase 57 U/L (38-126); Aspartate Aminotransferase 75 IU/L (14-36); BUN Creatinine Ratio 5.4 (6-22); Bilirubin Total 0.9 mg/dL (0.2-1.3); Blood Urea Nitrogen 3 mg/dL (7-17); Calcium 8.8 mg/dL (8.4-10.2); Carbon Dioxide 25 mmol/L (22-32); Chloride 99 mmol/L (98-107); Estimated Glomerular Filt Rate > 60.0 mL/min (>60); Globulin 3.1 g/dL (1.7-4.1); Glucose 241 mg/dL (80-110); HEMOLYSIS < 15 (0-50); Magnesium 1.9 mg/dL (1.6-2.3); Phosphorous 3.4 mg/dL (2.8-4.1); Potassium 3.9 mmol/L (3.4-5.1); Sodium 133 mmol/L (137-145); Total Protein 7.1 g/dL (6.3-8.2)
[2019-12-05] MEDS: ONDANSETRON 4 MG/2 ML INJ IV (05:56)
[2019-12-05] MEDS: THYROID, PORK 60 MG TABLET 120 MG PO (09:17)
[2019-12-05] MEDS: LOSARTAN 50 MG TABLET PO (09:18)
[2019-12-05] MEDS: INSULIN ASPART 100 UNIT/ML INSULN PEN SUBCUT ×2 (09:18→12:20)
[2019-12-05] MEDS: METOPROLOL ER 25 MG TABLET PO (09:18)
[2019-12-05] MEDS: PANTOPRAZOLE 20 MG TABLET PO (09:21)
--- NOTE | 2019-12-05 10:44 | PM.PN.1 ---
Subjective Subjective Date Patient Seen: 12/05/19 Time Patient Seen: 10:45 Interval history: Patient is approximately 1 day postop lap choly. She is still having some nausea and vomiting this morning. She has minimal discomfort however. Exam Vital Signs (past 8 hours): - 12/05/19 03:03 12/05/19 08:00 Temperature 97.0 F L 97.5 F L Pulse Rate 63 57 L Respiratory Rate 16 16 Blood Pressure 129/71 136/67 Pulse Oximetry 100 99 Oxygen Delivery Method Room Air Oxygen Flow Rate 0 Narrative Exam Narrative: Patient is alert and oriented. She is afebrile. Abdomen is obese but not particularly distended. Trocar sites are healing normally. She has the expected amount of perioperative tenderness. Objective Labs Result Diagrams: 12/05/19 04:45 12/05/19 04:45 Labs: Laboratory Results - last 24 hr 12/05/19 12/05/19 04:45 04:45 WBC 8.5 D RBC 4.12 Hgb 14.0 Hct 41.3 MCV 100.2 H MCH 34.0 MCHC 33.9 RDW 12.8 Plt Count 177 Neut % (Auto) 86.7 H Lymph % (Auto) 7.5 L [place] % (Auto) 5.4 Eos % (Auto) 0.0 L Baso % (Auto) 0.4 Neut # (Auto) 7400 H Lymph # (Auto) 600 L [place] # (Auto) 500 Eos # (Auto) 0 Baso # (Auto) 0 Sodium 133 L Potassium 3.9 Chloride 99 Carbon Dioxide 25 BUN 3 L Creatinine 0.56 Estimated GFR > 60.0 BUN/Creatinine Ratio 5.4 L Glucose 241 H Calcium 8.8 Phosphorus 3.4 Magnesium 1.9 Total Bilirubin 0.9 AST 75 H ALT 39 H Alkaline Phosphatase 57 Total Protein 7.1 Albumin 4.0 Globulin 3.1 Albumin/Globulin Ratio 1.3 Assessment & Plan Assessment & Plan narrative: Patient is recovering from her laparoscopic cholecystectomy. She is still complaining of nausea and has vomited. I have started treatment with intravenous Reglan and suspecting that she may have gastro paresis secondary to her diabetes. We will change her IV from dextrose to saline. We will continue careful observation. Quality VTE Deep Vein Thrombosis/Pulmonary Embolism Present on Admission: No
[2019-12-05] MEDS: raNITIdine 150 MG CAPSULE PO ×2 (11:02→21:41)
[2019-12-05] MEDS: SODIUM CHLORIDE 0.9% 1,000 ML 75 ML IV (11:02)
--- NOTE | 2019-12-05 11:02 | PM.PN.1 ---
Subjective Subjective Date Patient Seen: 12/05/19 Time Patient Seen: 11:02 Interval history: Patient is having some nausea and diminished appetite Blood sugar also quite high although she has been receiving IV D5 Exam Vital Signs (past 8 hours): - 12/05/19 03:03 12/05/19 08:00 Temperature 97.0 F L 97.5 F L Pulse Rate 63 57 L Respiratory Rate 16 16 Blood Pressure 129/71 136/67 Pulse Oximetry 100 99 Oxygen Delivery Method Room Air Oxygen Flow Rate 0 Objective Labs Result Diagrams: 12/05/19 04:45 12/05/19 04:45 Labs: Laboratory Results - last 24 hr 12/05/19 12/05/19 04:45 04:45 WBC 8.5 D RBC 4.12 Hgb 14.0 Hct 41.3 MCV 100.2 H MCH 34.0 MCHC 33.9 RDW 12.8 Plt Count 177 Neut % (Auto) 86.7 H Lymph % (Auto) 7.5 L [place] % (Auto) 5.4 Eos % (Auto) 0.0 L Baso % (Auto) 0.4 Neut # (Auto) 7400 H Lymph # (Auto) 600 L [place] # (Auto) 500 Eos # (Auto) 0 Baso # (Auto) 0 Sodium 133 L Potassium 3.9 Chloride 99 Carbon Dioxide 25 BUN 3 L Creatinine 0.56 Estimated GFR > 60.0 BUN/Creatinine Ratio 5.4 L Glucose 241 H Calcium 8.8 Phosphorus 3.4 Magnesium 1.9 Total Bilirubin 0.9 AST 75 H ALT 39 H Alkaline Phosphatase 57 Total Protein 7.1 Albumin 4.0 Globulin 3.1 Albumin/Globulin Ratio 1.3 Assessment & Plan Assessment & Plan narrative: 1. Status post laparoscopic cholecystectomy-continued postoperative care as per surgery. Hopefully more of an anesthesia effect with her nausea etcetera. Give her to sharma on time and hopefully she will begin to improve. Might also help to correct her metabolically i.e. fix her blood sugars 2. Diabetes-patient's blood sugars have been much higher than usual for her. At home she is a diet-controlled diabetic. Will of course limited the dextrose from her IV given that she is awake alert able to eat. This odd help with blood sugars will continue following with insulin as necessary if necessary increase insulin coverage regimen but for now I think merely removing the D5 would be the next step 3. Hyponatremia-sodium much improved this morning versus previous. No active issue here I believe perhaps related to her GI illness. 4. Hypertension-adequate control for now no active issues Overall patient is relatively slow to improve but certainly seems stable other than her mild hyperglycemia. If she improved significantly is able to eat better and blood sugars improved could be ready for discharge as soon as tomorrow although might take an additional 24 hours as well. Note: Greater than 25 minutes was spent evaluating the patient on the floor, including examining the patient, discussing clinical course with clinical and nursing staff, reviewing clinical course in the computer, preparing documentation and writing orders for continued management of care, discussing status with family as appropriate, reviewing plans for the next 24 hours with both patient/family and nursing staff as appropriate. Quality VTE Deep Vein Thrombosis/Pulmonary Embolism Present on Admission: No
[2019-12-05] MEDS: METOCLOPRAMIDE 10 MG/2 ML INJ IV ×2 (12:20→21:42)
[2019-12-05] MEDS: SIMETHICONE 80 MG TABLET PO ×3 (12:20→21:41)
[2019-12-05] MEDS: ACETAMINOPHEN 325 MG TABLET 650 MG PO (14:30)
[2019-12-05] MEDS: TRAZODONE 100 MG TABLET PO (21:41)
[2019-12-06] VITALS (7 sets, daily range): BP systolic 132–156; BP diastolic 65–88; PULSE 60–102; RESP 16–18; TEMP 35.9–37.2; O2SAT 95–99
[2019-12-06 05:20] LABS: Add Manual Diff / Slide Review NO; Basophils Absolute Auto 0 /uL (0-100); Basophils Percent Auto 0.9 % (0-2); Eosinophils Absolute Auto 100 /uL (0-450); Eosinophils Percent Auto 1.1 % (2-4); Hematocrit 37.8 % (36-46); Hemoglobin 12.9 g/dL (12.0-16.0); Lymphocytes Absolute Auto 900 /uL (1100-4500); Lymphocytes Percent Auto 16.1 % (25-40); Mean Corpuscular Hemoglobin 33.7 PG (26-34); Monocytes Absolute Auto 400 /uL (0-900); Monocytes Percent Auto 8.1 % (3-14); Neutrophils Absolute Auto 4000 /uL (1500-7000); Neutrophils Percent Auto 73.8 % (50-75); Platelet Count 163 X10^3/uL (150-400); Red Blood Cell Count 3.81 X10^6/uL (4.0-5.2); Red Cell Distribution Width 12.6 % (11.6-14.8); White Blood Cell Count 5.4 X10^3/uL (4.5-11.0)
[2019-12-06 05:34] LABS: Magnesium 1.7 mg/dL (1.6-2.3); Phosphorous 3.2 mg/dL (2.8-4.1)
--- NOTE | 2019-12-06 06:58 | PC.NURSE ---
Patient had bleeding IV site. Discontinued IV. I started another, it was running fine. Finished my assessment, rechecked IV, and despite no pain, and IVF running well, site was becoming puffy, so that was discontinued. Got another RN to try and start one, she tried 2 attempts and did not succeed. Got yet another RN from ICU to attempt, and she attempted twice and could not get IV. After total 5 attempts, no IV site was obtained.
[2019-12-06] MEDS: METOCLOPRAMIDE 10 MG/2 ML INJ IV (08:02)
[2019-12-06] MEDS: METOPROLOL ER 25 MG TABLET PO ×2 (09:35→21:03)
[2019-12-06] MEDS: ACETAMINOPHEN 325 MG TABLET 650 MG PO (09:35)
[2019-12-06] MEDS: LOSARTAN 50 MG TABLET PO (09:35)
[2019-12-06] MEDS: THYROID, PORK 60 MG TABLET 120 MG PO (09:35)
[2019-12-06] MEDS: raNITIdine 150 MG CAPSULE PO ×2 (09:35→21:03)
[2019-12-06] MEDS: SIMETHICONE 80 MG TABLET PO ×3 (09:35→16:31)
[2019-12-06] MEDS: INSULIN ASPART 100 UNIT/ML INSULN PEN SUBCUT ×2 (09:35→11:56)
[2019-12-06] MEDS: SODIUM CHLORIDE 0.9% 1,000 ML 75 ML IV (09:41)
--- NOTE | 2019-12-06 09:56 | P.PN_ITS ---
Subjective Subjective Date Patient Seen: 12/06/19 Time Patient Seen: 09:56 Interval history: Patient is still slow to increase her oral intake. Still having some si gnificant nausea how 1 episode of emesis Was started on metoclopramide IV by surgery yesterday. Is able to eat more today or over the last 24 hours and she was the previous 12-24 hours. Still having significant Lisa diminished appetite and decreased oral intake with some emesis and significant nausea however Has been up and around in the room without any difficulty whatsoever Blood sugars are much improved now that she is off IV dextrose Exam Vital Signs (past 8 hours): - 12/06/19 04:27 12/06/19 08:00 Temperature 97.1 F L 98.9 F Pulse Rate 67 102 H Respiratory Rate 16 17 Blood Pressure 149/79 H 154/84 H Pulse Oximetry 99 96 Oxygen Delivery Method Room Air Oxygen Flow Rate 0 Objective Labs Result Diagrams: 12/06/19 04:45 12/05/19 04:45 Labs: Laboratory Results - last 24 hr 12/06/19 12/06/19 04:45 04:45 WBC 5.4 RBC 3.81 L Hgb 12.9 Hct 37.8 MCV 99.0 MCH 33.7 MCHC 34.0 RDW 12.6 Plt Count 163 Neut % (Auto) 73.8 Lymph % (Auto) 16.1 L [place] % (Auto) 8.1 Eos % (Auto) 1.1 L Baso % (Auto) 0.9 Neut # (Auto) 4000 Lymph # (Auto) 900 L [place] # (Auto) 400 Eos # (Auto) 100 Baso # (Auto) 0 Phosphorus 3.2 Magnesium 1.7 Assessment & Plan Assessment & Plan narrative: 1. Status post laparoscopic cholecystectomy-continued postoperative care as per surgery. Her GI issues are probably a combination of her pre-existing diabetes since she clearly has some pre-hospital symptoms but perhaps related to her cholecystitis her current medications including antibiotics and pain meds as well as perhaps a lingering effect of anesthesia etcetera. Hopefully with time and continued treatment such as metoclopramide she will improve. Consider switching to oral metoclopramide today since especially she has had difficulty maintaining IV access. 2. Diabetes-blood sugars much more acceptable now off IV dextrose. No change in therapy for now. 3. Hyponatremia-plan to repeat sodium tomorrow with BMP 4. Hypertension-adequate control for now no active issues Overall patient is relatively slow to improve but certainly seems stable other than her ongoing GI issues. I am basically deferring management of her GI issues to surgery at this point so as not to confuse the picture with too many hands or too many cooks in the kitchen if you will. If she improved significantly is able to eat better and blood sugars improved could be ready for discharge within the next 24 hours, although it may take an additional day as well. Note: Greater than 25 minutes was spent evaluating the patient on the floor, including examining the patient, discussing clinical course with clinical and nursing staff, reviewing clinical course in the computer, preparing documentation and writing orders for continued management of care, discussing status with family as appropriate, reviewing plans for the next 24 hours with both patient/family and nursing staff as appropriate. Quality VTE Deep Vein Thrombosis/Pulmonary Embolism Present on Admission: No
--- NOTE | 2019-12-06 11:06 | PM.PN.1 ---
Subjective Subjective Date Patient Seen: 12/06/19 Time Patient Seen: 11:06 Interval history: Patient is 2 days post laparoscopic cholecystectomy. Has very little discomfort. She did vomit a small amount this morning. She states that she was eating some pudding and it was too suite for her so she felt like throwing up. Exam Vital Signs (past 8 hours): - 12/06/19 04:27 12/06/19 08:00 Temperature 97.1 F L 98.9 F Pulse Rate 67 102 H Respiratory Rate 16 17 Blood Pressure 149/79 H 154/84 H Pulse Oximetry 99 96 Oxygen Delivery Method Room Air Oxygen Flow Rate 0 Narrative Exam Narrative: Patient resting comfortably in bed with no abdominal pain. Abdomen is soft with no tenderness She has minimal trocar site tenderness as expected Objective Labs Result Diagrams: 12/06/19 04:45 12/05/19 04:45 Labs: Laboratory Results - last 24 hr 12/06/19 12/06/19 04:45 04:45 WBC 5.4 RBC 3.81 L Hgb 12.9 Hct 37.8 MCV 99.0 MCH 33.7 MCHC 34.0 RDW 12.6 Plt Count 163 Neut % (Auto) 73.8 Lymph % (Auto) 16.1 L [place] % (Auto) 8.1 Eos % (Auto) 1.1 L Baso % (Auto) 0.9 Neut # (Auto) 4000 Lymph # (Auto) 900 L [place] # (Auto) 400 Eos # (Auto) 100 Baso # (Auto) 0 Phosphorus 3.2 Magnesium 1.7 Assessment & Plan Assessment & Plan narrative: Patient appears to be much improved while on Reglan. She missed a dose or so last night because her IV came out. We will switch her to oral Reglan. I think most likely her problem is diabetic gastroparesis. She should probably be discharged on Reglan. I will try to slowly advance her diet today with hopes on discharging the patient tomorrow. Reduced her IV fluids today as well. Quality VTE Deep Vein Thrombosis/Pulmonary Embolism Present on Admission: No
[2019-12-06] MEDS: polyethylene glycoL 3350 17 GM POWD.PACK PO (11:56)
[2019-12-06] MEDS: METOCLOPRAMIDE HCL 10 MG TABLET PO ×3 (11:56→21:02)
--- NOTE | 2019-12-06 18:08 | PC.NURSE ---
Pt to room 223 from E.R. via wheelchair. Pt admits to substernal chest pain 11/02. Has nitropaste in place to left anterior chest as per E.R. Pt reports this is helping treat chest pain. Took diet well without difficulty. Has purse with valuables and reports spouse will take home. Denies headache, denies nausea.
[2019-12-06] MEDS: TRAZODONE 100 MG TABLET PO (21:02)
--- NOTE | 2019-12-06 21:57 | PC.NURSE ---
Pt with flat affect. Denies pain and refuses tylenol as offered throughout this shift. Denies nausea. States eating is difficult d/t absence of teeth. States in process of getting implanted dentures. Discussed with pt notifying staff if evening meal was too difficult to eat and arrangements could be made to offer easier foods for pt to consume. Educated pt on action of reglan and simethicone. Independent to bathroom to void. Missed collection device on two occasions so additional hat placed in toilet. IV fluids infusing as ordered to left hand iv site without difficulty. Pt mostly lying quietly in bed all shift. Refuses scd's. Positions self in and out of bed independently.
[2019-12-07] VITALS: BP 147/75; PULSE 60; RESP 16; TEMP 36.3; O2SAT 99
[2019-12-07] MEDS: SODIUM CHLORIDE 0.9% 1,000 ML 50 ML IV (03:37)
[2019-12-07 05:42] VITALS: BP 183/80; PULSE 56; RESP 16; TEMP 36.7; O2SAT 96
[2019-12-07 06:01] LABS: BUN Creatinine Ratio 9.3 (6-22); Blood Urea Nitrogen 5 mg/dL (7-17); Calcium 8.9 mg/dL (8.4-10.2); Carbon Dioxide 25 mmol/L (22-32); Chloride 98 mmol/L (98-107); Estimated Glomerular Filt Rate > 60.0 mL/min (>60); Glucose 129 mg/dL (80-110); HEMOLYSIS < 15 (0-50); Potassium 3.4 mmol/L (3.4-5.1); Sodium 131 mmol/L (137-145)
[2019-12-07 06:30] VITALS: BP 151/82
[2019-12-07 08:00] VITALS: BP 185/84; PULSE 62; RESP 16; TEMP 36.4; O2SAT 98
[2019-12-07] MEDS: METOCLOPRAMIDE HCL 10 MG TABLET PO ×3 (08:18→16:58)
[2019-12-07] MEDS: LOSARTAN 50 MG TABLET PO (09:47)
[2019-12-07] MEDS: METOPROLOL ER 25 MG TABLET PO (09:47)
[2019-12-07] MEDS: THYROID, PORK 60 MG TABLET 120 MG PO (09:47)
[2019-12-07] MEDS: raNITIdine 150 MG CAPSULE PO (09:47)
[2019-12-07] MEDS: INSULIN ASPART 100 UNIT/ML INSULN PEN SUBCUT (11:57)
[2019-12-07 12:00] VITALS: BP 171/74; PULSE 59; RESP 18; TEMP 36.9; O2SAT 99
--- NOTE | 2019-12-07 13:18 | PM.PN.1 ---
Subjective Subjective Date Patient Seen: 12/07/19 Time Patient Seen: 13:18 Interval history: Patient seen and evaluated this morning. Still having some nausea. She says the Reglan has been helping the simethicone has not really helped. Her blood pressure still running a little bit high. She has not been out of bed much. Discussed about getting out of bed sitting in a chair with movement. Bowel movements have been sparse although she says she really has not ate anything definitely feels better than before the surgery. Thinking about anticipating going home. Exam Vital Signs (past 8 hours): - 12/07/19 05:42 12/07/19 06:30 12/07/19 08:00 Temperature 98.0 F 97.6 F Pulse Rate 56 L 62 Respiratory Rate 16 16 Blood Pressure 183/80 H 151/82 H 185/84 H Pulse Oximetry 96 98 12/07/19 12:00 Temperature 98.5 F Pulse Rate 59 L Respiratory Rate 18 Blood Pressure 171/74 H Pulse Oximetry 99 Oxygen Delivery Method Room Air Oxygen Flow Rate 0 Narrative Exam Narrative: Gen.: She is alert lying in bed HEENT: Pupils equal round and reactive or mucosa is moist Cardio: S1-S2 regular rate and rhythm no systolic murmur her Respiratory: Normal respiratory effort Abdomen: Soft mild tenderness Extremities: Full range of motion no significant edema Neurologic: Grossly intact. Objective Labs Result Diagrams: 12/06/19 04:45 12/07/19 05:20 Labs: Laboratory Results - last 24 hr 12/07/19 05:20 Sodium 131 L Potassium 3.4 Chloride 98 Carbon Dioxide 25 BUN 5 L Creatinine 0.54 Estimated GFR > 60.0 BUN/Creatinine Ratio 9.3 Glucose 129 H D Calcium 8.9 Assessment & Plan Assessment & Plan narrative: Status post cholecystectomy. Ongoing nausea is improving significantly from before hospitalization. Continue management per surgery post surgical recovery. Hypertension. Blood pressure is high restart patient's home amlodipine. Continue with her losartan and metoprolol. Hyponatremia. Chronically low sodium. This will need further workup and evaluation as time goes on in the outpatient world. Diabetes. Generally diet controlled. Blood sugars are stable at this point not on any medication as insulin sliding scale written for. Disposition plan. Discharged when surgically cleared. Quality VTE Deep Vein Thrombosis/Pulmonary Embolism Present on Admission: No
[2019-12-07] MEDS: AMLODIPINE 5 MG TABLET PO (14:18)
[2019-12-07 15:42] VITALS: BP 148/98; PULSE 59; RESP 18; TEMP 36.5; O2SAT 100
--- NOTE | 2019-12-07 18:44 | PC.ADMIT ---
[address] [facility] Admission Note: The patient,Rajwinder Alford,64 y/o, was given written information regarding hospital policies, unit procedures and contact persons. Patient's smoking status: Former smoker. Vital Signs - 8 hr 12/07/19 12:00 12/07/19 15:42 Temperature 98.5 F 97.7 F Pulse Rate 59 L 59 L Respiratory Rate 18 18 Blood Pressure 171/74 H 148/98 H Pulse Oximetry 99 100
--- NOTE | 2019-12-07 18:44 | PC.NURSE ---
Evening Shift/Discharge Note- [id number] discharged home per surgeon. Discharge instructions abnd education reviewed with patient and signed. Patient dressed self and packed up all personal belongings. IV line removed and bandaid applied. Patient left via wheelchair to private car with all persoanl belongings and father at her side.
--- NOTE | 2019-12-24 13:24 | P.DS_ITS ---
History of Present Illness History of Present Illness Chief complaint: Dehydration, cholelithasis Narrative: The patient is a woman admitted with persistent nausea vomiting upper abdominal pain and abnormal ultrasound of the gallbladder. She has had significant weight loss. Discharge Providers Provider Date of admission: 12/03/19 15:58 Discharge Date: 12/07/19 Primary care physician: Marlon Brown MD Discharge provider: Vipin Hernandez MD Summary Hospital Course Discharge Diagnosis: Chronic cholecystitis with sludge Dehydration due to nausea and vomiting secondary to chronic cholecystitis Postoperative nausea and vomiting resolved by discharge Hyponatremia secondary to nausea and vomiting Chronic hypertension Chronic hypothyroidism on medication Chronic diabetes mellitus type 2 diet controlled Hospital Course: The patient was admitted by Dr. Brown. Underwent a laparoscopic cholecystectomy by Dr. Dawson. Postoperatively she had nausea and vomiting for several days and required hospitalization to that resolved. She was ultimately discharged to follow up in the office. Status at Discharge Cognitive/behavioral status at discharge: at baseline, oriented Functional status at discharge: independent ambulation Overall status at discharge: patient is progressing back to baseline Exam Vital Signs (past 8 hours): Oxygen Delivery Method Room Air Oxygen Flow Rate 0 Objective Labs Result Diagrams: 12/06/19 04:45 12/07/19 05:20 Discharge Plan Discharge Plan Patient Disposition: Home Discharge orders & Medications Prescriptions: Continued losartan [Cozaar] 50 mg tablet 50 mg PO DAILY Qty: 90 RF: 3 trazodone 100 mg tablet See Rx Instructions .ROUTE .COMPLEX Qty: 30 RF: 11 amlodipine [Norvasc] 5 mg tablet 5 mg PO DAILY Qty: 30 RF: 3 Glucose: Home Monitoring Kit 1 kit miscellaneous DIRECTED RF: 0 Test Strips - Freestyle 1 item miscellaneous TID RF: 0 ondansetron 4 mg tablet,disintegrating 4 mg PO Q6H PRN (Reason: nausea and vomiting) Qty: 20 RF: 0 thyroid (pork) [Varina Thyroid] 120 mg tablet 120 mg PO DAILY RF: 0 No Action sertraline [Zoloft] 50 mg Tablet 50 mg PO BEDTIME Qty: 90 RF: 0 cefdinir 300 mg capsule 300 mg PO BID Qty: 6 RF: 0 cyanocobalamin (vitamin B-12) [Vitamin B-12] 1,000 mcg tablet 1,000 mcg PO DAILY Qty: 90 RF: 1 folic acid 800 mcg tablet 0.8 mg PO DAILY Qty: 90 RF: 1 Follow up/Referrals: Marlon Brown MD [Primary Care Provider] - Ange Dawson MD [Physician] - (please make follow up appointment to be seen by Dr. Dawson in 2-3 weeks in the [facility]) Diet/Activity/Treatments Diet: Diet as Tolerated Activity: Do not lift over 10 lb or strain for the next [address] until your pain-free off medication. He may ride in a car however. No pool or tub for 2 weeks Skin/Wound/Dressing Care Report to your healthcare provider any signs of infection, such as:: increased pain, unusual drainage and unusual redness Dressing: You can remove her dressings tomorrow and shower Visit Report/Discharge Packet Instructions: DI for Cholecystectomy, DI for Prescription Opioid Use, [facility]: Wound Care Stand Alone Forms: Surgery Discharge Discharge Data Primary Care Provider: Marlon Brown Discharges patient from system. Discharge Date/Time: 12/07/19 18:30 Quality VTE Deep Vein Thrombosis/Pulmonary Embolism Present on Admission: No
== END 2019-12-07 18:30 | disposition home or self-care (01) | DRG 418 ==
PROVIDERS: Internal Medicine; Admitting Provider Surgery; PCP Family Medicine; Referring Provider Surgery; Visit Provider Surgery
PROC: 0FT44ZZ Resection of Gallbladder, Percutaneous Endoscopic Approach (ICD-10-PCS; CPT 47562; principal; 2019-12-04 14:45)
DX: K80.20 Calculus of gallbladder without cholecystitis without obstruction (principal); E87.1 Hypo-osmolality and hyponatremia; I47.1 Supraventricular tachycardia; R11.0 Nausea; E86.0 Dehydration; E66.9 Obesity, unspecified; E11.65 Type 2 diabetes mellitus with hyperglycemia; E03.9 Hypothyroidism, unspecified; I10 Essential (primary) hypertension; Z79.84 Long term (current) use of oral hypoglycemic drugs; Z87.891 Personal history of nicotine dependence; Z68.30 Body mass index [BMI] 30.0-30.9, adult
CPT/HCPCS: 36415; 47562; 80048; 80053; 82962; 83690; 83735; 84100; 85025; 93005; 99223; 99231; 99233; J0360; J0780; J1100; J1885; J2405; J2543; J2704; J2765; J3010

== ENCOUNTER 2019-12-15 12:31 | Inpatient (IN) | payer MEDICARE, MEDICAID, SELFPAY ==
[2019-12-15] VITALS (7 sets, daily range): BP systolic 144–197; BP diastolic 66–91; PULSE 56–75; RESP 12–18; TEMP 36–36.5; O2SAT 98–100; BMI 28.9
--- NOTE | 2019-12-15 12:52 | ED_ITS ---
HPI - General Adult General Chief complaint: Altered Mental Status Stated complaint: Altered mental status Time Seen by Provider: 12/15/19 12:40 Source: patient, family (Father) and EMS Mode of arrival: EMS Limitations: altered mental status History of Present Illness HPI narrative: Patient is a 64-year-old female. Recently was admitted to our facility and had a cholecystectomy for initially was described as abdominal pain but then patient's father states it was more because she was having problems eating. Was discharged home. Arrived today by EMS for concerns of altered mental status. Much of the HPI was provided by the patient's father. He states that ever since her surgery in since the discharge from the emergency department patient has become more confused at home. She is not acting like herself. There was no reports of trauma. Patient's father states that she has not been taking the pain medication that she was prescribed. He thought that the symptoms today were worsening so he called EMS. EMS reports that the patient was confused upon their arrival. She did follow directions. Blood sugars greater than 100. Patient upon arrival has no complaints although she states that she does not know why she is here. She does not know why she had surgery. Related Data Home Medications Medication Instructions Recorded Confirmed Glucose: Home Monitoring Kit 1 kit MISCELLANEOUS DIRECTED 09/05/18 12/04/19 Test Strips - Freestyle 1 item MISCELLANEOUS TID 09/05/18 12/04/19 naproxen sodium [Aleve] 1 dose PO PRN PRN 09/05/18 12/03/19 thyroid (pork) [[place] Thyroid] 120 mg PO DAILY 12/03/19 12/03/19 Previous Rx's Medication Instructions Recorded trazodone 100 mg tablet See Rx Instructions .ROUTE 10/19/19 .COMPLEX #30 tablet losartan 50 mg tablet 50 mg PO DAILY #90 tab 11/10/19 amlodipine 5 mg tablet 5 mg PO DAILY #30 tab 11/17/19 ondansetron 4 mg PO Q6H PRN #20 tab 11/21/19 hydrocodone-acetaminophen [[place]] 1 tab PO Q4H PRN #14 tab 12/07/19 metoclopramide HCl [Reglan] 10 mg PO QACHS #10 tab 12/07/19 Allergies Allergy/AdvReac Type Severity Reaction Status Date / Time streptomycin [STREPTOMYCIN] Allergy Severe Throat Verified 12/03/19 15:10 swelled up Review of Systems Constitutional Constitutional: Denies fever(s) and Denies frequent falls Eyes Eyes: Denies loss of vision ENT Ears, Nose, Mouth, and Throat: Denies dizziness and Denies disequilibrium Cardiovascular Cardiovascular: Denies chest pain and Denies dyspnea Respiratory Respiratory: Denies dyspnea Gastrointestinal Gastrointestinal: Denies abdominal pain and Denies vomiting Musculoskeletal Musculoskeletal: Denies myalgias and Denies arthralgias Integumentary/Breasts Skin/Breast: Denies lesions and Denies rash Neurologic Neurologic: Denies abnormal speech, Reports behavioral changes, Reports confusion, Denies dizziness, Denies frequent falls, Denies loss of vision, Reports memory loss and Denies disequilibrium Psychiatric Psychiatric: Reports behavioral changes, Reports confusion and Reports memory loss Hematologic/Lymphatic Hematologic/Lymphatic: Denies easy bleeding and Denies easy bruising Allergic/Immunologic Allergic/Immunologic: Denies urticaria Patient History Medical History Depression (07/21/14) Diabetes mellitus (07/21/14) Diverticulum of esophagus (02/13/17) FHx: SVT (supraventricular tachycardia) (Acute) Hyperlipidemia (07/21/14) Hypertension (Inactive 06/13/12) Obesity (07/21/14) Surgical History History of cholecystectomy (Acute) Social History household members: family Smoking Status: Former smoker alcohol intake: current Smoking Status: Former smoker alcohol intake frequency: 0-2 drinks per day Substance Use Type: does not use Exam Initial Vital Signs Initial Vital Signs: Vital Signs Temperature 97.7 F 12/15/19 12:51 Pulse Rate 68 12/15/19 12:51 Respiratory Rate 14 12/15/19 12:51 Blood Pressure 197/91 H 12/15/19 12:51 Pulse Oximetry 100 12/15/19 12:51 Const General: cooperative, healthy appearing, comfortable, well developed, well groomed and No acute distress Limitations: altered mental status HENMT Head: normal to inspection and normocephalic Ears: hearing grossly normal bilaterally Eyes Pupils: PERRL EOM: EOM intact bilaterally Resp Effort & Inspection: normal respiratory effort Auscultation: clear to auscultation bilaterally Cardio Rate: regular rate Rhythm: regular rhythm GI Inspection: non-distended Palpation: soft and No tender Skin Other: Abdominal surgical incisions appear well without signs of infection Neuro General: alert, awake and moves all extremities Cognition: abnormal cognition Speech: speech normal Motor: muscle tone normal throughout Sensory Exam: no sensory deficits noted Extrem General: normal to inspection and capillary refill normal Psych Appearance: grossly normal and well kempt Speech and Movement: not agitated Attitude: cooperative Scores GCS [place] coma scale eye opening: Spontaneous [place] coma scale verbal response: Confused [place] coma scale motor response: Obey commands [place] coma scale total score: 14 Course Orders Ordered: ED Orders 12/15/19 12:40 Acetaminophen Stat Complete Blood Count AUTO DIFF Stat Comprehensive Metabolic Panel Stat Ethanol (ETOH) Stat Lipase Stat Procalcitonin Stat Salicylate Stat 12/15/19 12:54 CT head/brain wo con Stat EKG-12 Lead Stat 12/15/19 13:24 Ammonia (NH3) Stat 12/15/19 13:40 Troponin & CK Cardiac Panel Stat 12/15/19 13:45 Urine Microscopic Stat 12/15/19 14:04 MR stroke Stat Sodium Chloride (Normal Saline 0.9%) 1,000 mls @ 125 mls/hr IV CONT NIEVES Last Infusion: 12/15/19 14:26 Dose: 0 mls/hr Documented by: Admin: 12/15/19 13:31 Dose: 125 mls/hr Documented by: BIANCA Ondansetron HCl (Zofran) 4 mg IV Q4HR PRN PRN Reason: Nausea And Vomiting Discontinued Medications Labetalol HCl (Trandate) 5 mg IV NOW ONE Stop: 12/15/19 13:15 Last Admin: 12/15/19 13:35 Dose: 5 mg Documented by: BIANCA Vital Signs Vital signs: Vital Signs - 8 hr 12/15/19 12:51 12/15/19 13:50 Temperature 97.7 F Pulse Rate 68 75 Respiratory Rate 14 12 Blood Pressure 197/91 H Blood Pressure [Left Arm] 151/66 H Pulse Oximetry 100 Medical Decision Making Medical Records Medical records reviewed: Yes I reviewed the patient's medical records. Lab Data Lab results reviewed: Yes I reviewed the patient's lab results. Result diagrams: 12/15/19 12:40 12/15/19 12:40 Labs: Lab Results 12/15/19 12/15/19 12/15/19 Range/Units 12:40 12:40 12:40 WBC 10.0 (4.5-11.0) X10^3/uL RBC 4.67 (4.0-5.2) X10^6/uL Hgb 16.1 H (12.0-16.0) g/dL Hct 44.4 (36-46) % MCV 95.0 D (80-100) fL MCH 34.4 H (26-34) PG MCHC 36.2 H (30-36) % RDW 12.5 (11.6-14.8) % Plt Count 288 (150-400) X10^3/uL Neut % (Auto) 77.2 H (50-75) % Lymph % (Auto) 14.3 L (25-40) % [place] % (Auto) 6.2 (3-14) % Eos % (Auto) 1.5 L (2-4) % Baso % (Auto) 0.8 (0-2) % Neut # (Auto) 7700 H (0633-9089) /uL Lymph # (Auto) 1400 (2928-9671) /uL [place] # (Auto) 600 (0-900) /uL Eos # (Auto) 200 (0-450) /uL Baso # (Auto) 100 (0-100) /uL Sodium 130 L (137-145) mmol/L Potassium 3.3 L (3.4-5.1) mmol/L Chloride 89 L (98-107) mmol/L Carbon Dioxide 27 (22-32) mmol/L BUN 13 (7-17) mg/dL Creatinine 0.55 (0.52-1.04) mg/dL Estimated GFR > 60.0 (>60) mL/min BUN/Creatinine Ratio 23.6 H (6-22) Glucose 140 H (80-110) mg/dL Calcium 9.9 (8.4-10.2) mg/dL Total Bilirubin 1.5 H (0.2-1.3) mg/dL AST 51 H (14-36) IU/L ALT 59 H (<35) IU/L Alkaline Phosphatase 111 (38-126) U/L Ammonia (9-30) umol/L Total Creatine Kinase (30-135) U/L CK-MB (CK-2) CK-MB (CK-2) Rel Index Troponin I (0.01-0.034) ng/mL Total Protein 8.6 H (6.3-8.2) g/dL Albumin 4.8 (3.5-5.0) g/dL Globulin 3.8 (1.7-4.1) g/dL Albumin/Globulin Ratio 1.3 (1.0-2.8) Lipase 102 (23-300) U/L Procalcitonin 0.13 (<0.5) ng/mL Urine RBC (0-5/HPF) Urine WBC (0-5/HPF) Urine Bacteria (None) Ur Culture Indicated? Micro UA Comment Salicylates (<20) mg/dL Acetaminophen < 10 L (10-30) ug/mL Ethyl Alcohol < 10 ( - 10) mg/dL 12/15/19 12/15/19 12/15/19 Range/Units 12:40 13:24 13:40 WBC (4.5-11.0) X10^3/uL RBC (4.0-5.2) X10^6/uL Hgb (12.0-16.0) g/dL Hct (36-46) % MCV (80-100) fL MCH (26-34) PG MCHC (30-36) % RDW (11.6-14.8) % Plt Count (150-400) X10^3/uL Neut % (Auto) (50-75) % Lymph % (Auto) (25-40) % [place] % (Auto) (3-14) % Eos % (Auto) (2-4) % Baso % (Auto) (0-2) % Neut # (Auto) (1939-1037) /uL Lymph # (Auto) (7002-9331) /uL [place] # (Auto) (0-900) /uL Eos # (Auto) (0-450) /uL Baso # (Auto) (0-100) /uL Sodium (137-145) mmol/L Potassium (3.4-5.1) mmol/L Chloride (98-107) mmol/L Carbon Dioxide (22-32) mmol/L BUN (7-17) mg/dL Creatinine (0.52-1.04) mg/dL Estimated GFR (>60) mL/min BUN/Creatinine Ratio (6-22) Glucose (80-110) mg/dL Calcium (8.4-10.2) mg/dL Total Bilirubin (0.2-1.3) mg/dL AST (14-36) IU/L ALT (<35) IU/L Alkaline Phosphatase (38-126) U/L Ammonia < 9 L (9-30) umol/L Total Creatine Kinase 37 (30-135) U/L CK-MB (CK-2) TNP CK-MB (CK-2) Rel Index TNP Troponin I < 0.012 (0.01-0.034) ng/mL Total Protein (6.3-8.2) g/dL Albumin (3.5-5.0) g/dL Globulin (1.7-4.1) g/dL Albumin/Globulin Ratio (1.0-2.8) Lipase (23-300) U/L Procalcitonin (<0.5) ng/mL Urine RBC (0-5/HPF) Urine WBC (0-5/HPF) Urine Bacteria (None) Ur Culture Indicated? Micro UA Comment Salicylates < 1.0 (<20) mg/dL Acetaminophen (10-30) ug/mL Ethyl Alcohol ( - 10) mg/dL 12/15/19 Range/Units 13:45 WBC (4.5-11.0) X10^3/uL RBC (4.0-5.2) X10^6/uL Hgb (12.0-16.0) g/dL Hct (36-46) % MCV (80-100) fL MCH (26-34) PG MCHC (30-36) % RDW (11.6-14.8) % Plt Count (150-400) X10^3/uL Neut % (Auto) (50-75) % Lymph % (Auto) (25-40) % [place] % (Auto) (3-14) % Eos % (Auto) (2-4) % Baso % (Auto) (0-2) % Neut # (Auto) (8161-2201) /uL Lymph # (Auto) (4636-6628) /uL [place] # (Auto) (0-900) /uL Eos # (Auto) (0-450) /uL Baso # (Auto) (0-100) /uL Sodium (137-145) mmol/L Potassium (3.4-5.1) mmol/L Chloride (98-107) mmol/L Carbon Dioxide (22-32) mmol/L BUN (7-17) mg/dL Creatinine (0.52-1.04) mg/dL Estimated GFR (>60) mL/min BUN/Creatinine Ratio (6-22) Glucose (80-110) mg/dL Calcium (8.4-10.2) mg/dL Total Bilirubin (0.2-1.3) mg/dL AST (14-36) IU/L ALT (<35) IU/L Alkaline Phosphatase (38-126) U/L Ammonia (9-30) umol/L Total Creatine Kinase (30-135) U/L CK-MB (CK-2) CK-MB (CK-2) Rel Index Troponin I (0.01-0.034) ng/mL Total Protein (6.3-8.2) g/dL Albumin (3.5-5.0) g/dL Globulin (1.7-4.1) g/dL Albumin/Globulin Ratio (1.0-2.8) Lipase (23-300) U/L Procalcitonin (<0.5) ng/mL Urine RBC None seen (0-5/HPF) Urine WBC None seen (0-5/HPF) Urine Bacteria None seen (None) Ur Culture Indicated? Cult not indicated Micro UA Comment Microscopic normal Salicylates (<20) mg/dL Acetaminophen (10-30) ug/mL Ethyl Alcohol ( - 10) mg/dL Urine Dip Bedside Urine Glucose Negative Bedside Urine Bilirubin + 1 Bedside Urine Ketone +++ 80 Urine Specific [place] 1.015 Bedside Urine Occult Blood - Negative Bedside Urine pH 6.0 Bedside Urine Protein +/- 15 Bedside Urine Urobilinogen +/- 1mg Bedside Urine Nitrite - Negative Bedside Urine Leukocytes - Negative Esterase Point of care testing: Urine Dip Bedside Urine Glucose Negative Bedside Urine Bilirubin + 1 Bedside Urine Ketone +++ 80 Urine Specific [place] 1.015 Bedside Urine Occult Blood - Negative Bedside Urine pH 6.0 Bedside Urine Protein +/- 15 Bedside Urine Urobilinogen +/- 1mg Bedside Urine Nitrite - Negative Bedside Urine Leukocytes - Negative Esterase Imaging Data CT scan - head: Radiologist's Impression: [address] [address] [address] Scan Report Signed Patient: Rajwinder Alford#: [id number] : 3Acct:[id number] Age/Sex: 64 / FDate of Service: 12/15/19 Loc: ED Accession Number: [id number] Procedure: CT head/brain wo con Ordering Provider: Ilir Elena D.O. PROCEDURE: CT HEAD/BRAIN WO CON INDICATIONS: Altered mental status TECHNIQUE: Noncontrast 4.5 mm thick angled axial sections acquired from the foramen magnum to the vertex, with coronal and sagittal reformats. For radiation dose reduction, the following was used: automated exposure control, adjustment of mA and/or kV according to patient size. COMPARISON: None. FINDINGS: Image quality: Excellent. CSF spaces: Basal cisterns are patent. No extra-axial fluid collections. The ventricles are symmetric in size and shape. There is mild cerebral volume loss, with resultant ventricular and sulcal prominence. Brain: No intracranial hemorrhage, mass, or mass effect. There are subcortical, periventricular and deep white matter hypodensities consistent with mild chronic small vessel ischemic changes. There is intracranial internal carotid artery atherosclerosis. Skull and face: Calvarium and visualized facial bones are intact, without suspicious lesions. Sinuses: Visualized sinuses and mastoids are clear. IMPRESSION: 1. No acute intracranial abnormality. Dictated by: Freddy Machado M.D. on 12/15/2019 at 13:11 Approved by: Freddy Machado M.D. on 12/15/2019 at 13:13 ECG Data Attestation: I personally reviewed and interpreted this ECG as follows: Prior ECG tracings: not available for review Interpretation: Sinus rhythm Ventricular rate 88 Left axis deviation QTC 529 milliseconds Normal QRS No ST T wave changes MDM Narrative Medical decision making narrative: Patient is nontoxic appearing. She is afebrile. Her surgical incisions look well. She is not reporting any abdominal pain. Labs are unremarkable. Head CT is unremarkable. Has a GCS of 14. Is alert to self. She knows that she is in the hospital. Knows what year it is however does not know her date. Does not remember that she had surgery or why she had the surgery. She does that it is her father that is standing next to her. She has some problems recalling both distant memory such as her urine also recent memories such as the surgery. It also appears that she is having some problems with forming new memories. She stated to the nurse that she did not remember talking with me upon her arrival. Patient was hypertens shaheed. She has not been taking her medications. There was also some question about how much food or fluids she has been having over the past couple days. Review of the patient's inpatient notes states that her systolic blood pressures were in the 180s. She was given labetalol which brought her heart rate down to the 150s. I do not want to bring it any lower due to the concern for relative hypotension. I feel that infection is unlikely given her history and physical on labs. Does not have any localizing neurologic signs. Patient's father states she has not been taking her pain medication at home. I did discuss the case with Dr. Brown who will admit the patient for further evaluation and treatment. He did ask that I order a stroke MRI which I did out of the emergency department. I discussed the admission with both the patient and her father. They both expressed agreement with this. Patient was transported to MRI and then will be transported to the floor. Dr. Brown will follow up on MRI results. Holding orders placed. Discharge Plan Departure Patient Disposition: Admitted as Observation Clinical Impression: Altered mental status Qualifiers: Altered mental status type: unspecified Qualified Code(s): R41.82 - Altered mental status, unspecified Admit Date/Time: 12/15/19 14:05 Admit Provider: Marlon Brown
[2019-12-15 13:08] LABS: Add Manual Diff / Slide Review NO; Basophils Absolute Auto 100 /uL (0-100); Basophils Percent Auto 0.8 % (0-2); Eosinophils Absolute Auto 200 /uL (0-450); Eosinophils Percent Auto 1.5 % (2-4); Hematocrit 44.4 % (36-46); Hemoglobin 16.1 g/dL (12.0-16.0); Lymphocytes Absolute Auto 1400 /uL (1100-4500); Lymphocytes Percent Auto 14.3 % (25-40); Mean Corpuscular HGB Conc 36.2 % (30-36); Mean Corpuscular Hemoglobin 34.4 PG (26-34); Monocytes Absolute Auto 600 /uL (0-900); Monocytes Percent Auto 6.2 % (3-14); Neutrophils Absolute Auto 7700 /uL (1500-7000); Neutrophils Percent Auto 77.2 % (50-75); Platelet Count 288 X10^3/uL (150-400); Red Blood Cell Count 4.67 X10^6/uL (4.0-5.2); Red Cell Distribution Width 12.5 % (11.6-14.8)
[2019-12-15 13:25] LABS: Acetaminophen < 10 ug/mL (10-30); Alanine Aminotransferase 59 IU/L (<35); Albumin 4.8 g/dL (3.5-5.0); Albumin Globulin Ratio 1.3 (1.0-2.8); Alkaline Phosphatase 111 U/L (38-126); Aspartate Aminotransferase 51 IU/L (14-36); BUN Creatinine Ratio 23.6 (6-22); Bilirubin Total 1.5 mg/dL (0.2-1.3); Blood Urea Nitrogen 13 mg/dL (7-17); Calcium 9.9 mg/dL (8.4-10.2); Carbon Dioxide 27 mmol/L (22-32); Chloride 89 mmol/L (98-107); Estimated Glomerular Filt Rate > 60.0 mL/min (>60); Ethanol (ETOH) < 10 mg/dL; Globulin 3.8 g/dL (1.7-4.1); Glucose 140 mg/dL (80-110); HEMOLYSIS 20 (0-50); Lipase 102 U/L (23-300); Potassium 3.3 mmol/L (3.4-5.1); Salicylate < 1.0 mg/dL (<20); Sodium 130 mmol/L (137-145); Total Protein 8.6 g/dL (6.3-8.2)
[2019-12-15] MEDS: SODIUM CHLORIDE 0.9% 1,000 ML 125 ML IV ×3 (13:31→23:19)
[2019-12-15] MEDS: LABETALOL 20 MG/4 ML SYRINGE 5 MG IV (13:35)
[2019-12-15 13:46] LABS: Ammonia (NH3) < 9 umol/L (9-30)
[2019-12-15 13:54] LABS: Procalcitonin 0.13 ng/mL (<0.5)
--- NOTE | 2019-12-15 14:04 | DI.MRI.S_ITS ---
PROCEDURE: MR STROKE Pre- and post-contrast brain MRI, non-contrast brain MR angiogram, pre- and postcontrast neck MR angiogram INDICATIONS: AMS TECHNIQUE: Brain: Noncontrast axial T1 spin echo, axial T2 fast spin echo, sagittal and axial FLAIR, coronal T2 fast spin echo, axial gradient echo, axial diffusion and ADC through the brain. After the administration of contrast, axial 3D VIBE of the cranial vasculature and brain. Brain MRA: Non-contrast 3-D time of flight MR angiogram, with multiple obcxtxe-jwyebodqn-kimaesdjkv (MIP) reformats performed. Neck MRA: Axial and sagittal TruFISP through the neck. Coronal dynamic MR angiogram during administration of contrast in the arterial and venous phases, with 3-dimenstional jkwweoc-wgodvyues-tckumqhuen (MIP) reformats constructed from subtraction images. COMPARISON: [facility], CT, CT HEAD/BRAIN WO CON, 12/15/2019, 12:54. FINDINGS: Image quality: Diagnostic, with note made of motion artifact. BRAIN: CSF spaces: Ventricles are normal in size and shape. Basal cisterns are patent. No extra-axial fluid collections. Brain: No intracranial bleeds or mass effects. Brain parenchymal volume loss is seen. Age-appropriate chronic small vessel ischemic change is seen. Tamez-white matter interface is normal. Diffusion weighted images show no acute ischemic insults. Brainstem appears normal. Normal intravascular flow voids are present. No abnormal intracranial enhancement. Skull and face: Calvarial marrow signal is normal. Orbits appear normal. Sinuses: Sinuses and mastoids are clear. BRAIN MR ANGIOGRAM: Anterior circulation: Intracranial internal carotid arteries are normal in size and enhancement. The flow within the paired anterior cerebral arteries is normal and symmetric. The flow within the middle cerebral arteries is normal and symmetric. The anterior communicating artery is seen. No stenoses, occlusions, or aneurysms. Posterior circulation: The visualized portions of the vertebral arteries demonstrate normal caliber, and join to form a normal appearing basilar artery. The flow within the posterior cerebral arteries is normal and symmetric. No stenoses, occlusions, or aneurysms. NECK MR ANGIOGRAM: Carotids: Great vessels demonstrate a conventional anatomy as they arise from the aortic arch. The origins of the common carotid arteries appear patent. The calibers and courses of both common carotid arteries are normal. The bifurcation regions demonstrate mild atherosclerotic irregularity, left worse than right. No hemodynamically significant stenosis is seen of the internal carotid arteries. Posterior circulation: The origins of the vertebral arteries appear patent. More superior portions of both vertebral arteries demonstrate normal course and caliber, and join to form a normal appearing basilar artery. Miscellaneous: Subclavian arteries appear patent. Pre-contrast images through the neck show no soft tissue abnormalities. IMPRESSION: BRAIN MRI: No findings of acute or subacute infarction can be seen. Note is made of age-appropriate brain parenchymal volume loss and chronic small vessel ischemic changes. No masses or abnormal enhancement can be seen. BRAIN MR ANGIOGRAM: No significant intracranial arterial abnormality can be seen. No focal stenosis or occlusion is seen. NECK MR ANGIOGRAM: Within the arteries of the neck, no hemodynamically significant stenosis can be seen. Dictated by: Bashir Sung M.D. on 12/15/2019 at 14:08 Approved by: Bashir Sung M.D. on 12/15/2019 at 14:11
[2019-12-15 14:06] LABS: Bacteria Urine None Seen; RBC Urine None Seen (0-5/HPF); WBC Urine None Seen (0-5/HPF)
[2019-12-15 14:12] LABS: Culture Indicated Urine Cult Not Indicated; Urine Comments Microscopic Normal
[2019-12-15 14:16] LABS: Creatine Kinase 37 U/L (30-135)
[2019-12-15 14:28] LABS: Troponin I < 0.012 ng/mL (0.01-0.034)
--- NOTE | 2019-12-15 15:38 | PC.NURSE ---
Gave report to MARY KAY Fields, inpatient nurse. Patient was sent to MRI prior to 1500 and then to room 209 from MRI.
[2019-12-15 17:40] LABS: UR Morphine/Opiate cutoff 300 Negative (Negative); Ur Creatinine Normal (Normal); Ur Specific Gravity Normal (Normal); Urine Amphetamines Negative (Negative); Urine Barbiturates Negative (Negative); Urine Benzodiazepines Negative (Negative); Urine Cocaine Negative (Negative); Urine MDMA Negative (Negative); Urine Methadone Negative (Negative); Urine Methamphetamines Negative (Negative); Urine Oxycodone Negative (Negative); Urine Phencyclidine Negative (Negative); Urine Tetrahydrocannabinol Negative (Negative); Urine Tricyclic Antidepressant Negative (Negative); Urine pH Normal (Normal)
[2019-12-15] MEDS: LOSARTAN 50 MG TABLET PO (17:53)
--- NOTE | 2019-12-15 17:53 | PM.HP.1 ---
History of Present Illness History of Present Illness Date Patient Seen: 12/15/19 Time Patient Seen: 17:53 Chief complaint: Altered mental status Narrative: 64-year-old female seen in the hospital this evening. Was readmitted to the hospital. She was discharged home on Saturday12/07/2019. Patient has been struggling for the last 6 months with gradual weight loss onset of nausea had elevation of liver enzymes. With the concern for potential cholecystitis with acute changes. Patient was admitted the hospital after concerns of ongoing dehydration and acute cholecystitis. Patient had an uneventful surgical course. Had fairly normal postoperative recovery. Although she continued to have some nausea as she was started on Reglan which helped with her nausea and was discharged home. Her father who is with her today says she was doing well. Other than she really was not eating much still. But seemed to be recovered about 3 days ago he noticed there was a change in her mentation. He became a little bit concerned but not too concerned. And noticed that her eating had also changed she began to not eat as well again. Today when he went to check in on her she seemed to be a little bit more confused thinking that was 2016 she was in [place]. Does not recollect her remember having the surgery. Call my nurse and patient was brought back to the emergency department. On my evaluation she recognizes me she does not know where she is add other than the hospital she thinks she may be in [place] she thinks is 2016 and December she does recognize her father who is with her. She knows my name. She is very hard historian but she does say that she is very stressed out right now. She is stressed and worried about her father who is taking care of their mother and she is worried that he was also having to take with care of her. She has a history of depression and anxiety. No history of significant mental breaks or psychotic episodes. On review of her history with her father. She has not really been taking any pain medication was prescribed hydrocodone but really did not take it. She has no history of substance abuse that I am aware of her that her father is in the never been an issue. Is not a major drinker. Every alcohol level previously has been normal. She does not admit to using that on previous examinations. Her health history is consistent with hypertension hypothyroidism recent significant weight loss and cholecystitis with gallbladder removal. Patient History Medical History Depression (07/21/14) Diabetes mellitus (07/21/14) Diverticulum of esophagus (02/13/17) FHx: SVT (supraventricular tachycardia) (Acute) Hyperlipidemia (07/21/14) Hypertension (Inactive 06/13/12) Obesity (07/21/14) Surgical History History of cholecystectomy (Acute) Family & Social History Social History: household members family Prior Living Arrangements House Safety & Behavioral: Feels Safe in Current Yes Environment Been Physically Hurt or No Threatened By a Person Suicidal Ideation Description None Suicide Plan Description No Plan Tobacco & Substance use: Smoking Status Former smoker alcohol intake current alcohol intake frequency 0-2 drinks per day Substance Use Type does not use Meds Home Medications and Allergies Home Medications Medication Instructions Recorded Confirmed Type Glucose: Home Monitoring Kit 1 kit MISCELLANEOUS DIRECTED 09/05/18 12/04/19 History Test Strips - Freestyle 1 item MISCELLANEOUS TID 09/05/18 12/04/19 History naproxen sodium [Aleve] 1 dose PO PRN PRN 09/05/18 12/03/19 History trazodone 100 mg tablet See Rx Instructions .ROUTE 10/19/19 12/03/19 Rx .COMPLEX #30 tablet losartan 50 mg tablet 50 mg PO DAILY #90 tab 11/10/19 12/03/19 Rx amlodipine 5 mg tablet 5 mg PO DAILY #30 tab 11/17/19 12/03/19 Rx ondansetron 4 mg PO Q6H PRN #20 tab 11/21/19 12/03/19 Rx thyroid (pork) [[place] Thyroid] 120 mg PO DAILY 12/03/19 12/03/19 History hydrocodone-acetaminophen [[place]] 1 tab PO Q4H PRN #14 tab 12/07/19 Rx metoclopramide HCl [Reglan] 10 mg PO QACHS #10 tab 12/07/19 Rx Allergies Allergy/AdvReac Type Severity Reaction Status Date / Time streptomycin [STREPTOMYCIN] Allergy Severe Throat Verified 12/03/19 15:10 swelled up Exam Vital Signs (past 8 hours): - 12/15/19 12:51 12/15/19 13:50 12/15/19 14:27 Temperature 97.7 F Pulse Rate 68 75 Respiratory Rate 14 12 Blood Pressure 197/91 H 151/66 H Blood Pressure [Left Arm] 151/66 H Pulse Oximetry 100 12/15/19 15:47 Temperature 96.8 F L Pulse Rate 70 Respiratory Rate 18 Blood Pressure 145/77 H Blood Pressure [Left Arm] Pulse Oximetry 99 Oxygen Delivery Method Room Air Narrative Exam Narrative: Gen.: Alert patient is a poor historian. Does not know place or time knows person HEENT: NCAT PERRLA tympanic membranes are clear nares are patent oral mucosa is moist no tonsillar hypertrophy neck is supple without lymphadenopathy no thyroid enlargement. Cardio: S1-S2 regular rate and rhythm no murmurs appreciated. Respiratory: Lungs are clear to auscultation no wheezes or crackles normal respiratory effort. Abdomen: Soft nontender no rebound or guarding no liver spleen enlargement no appreciable hernias Extremities: Full range of motion no appreciable weakness no cyanosis or edema. Neurologic: Grossly intact. Objective Labs Result Diagrams: 12/15/19 12:40 12/15/19 12:40 Labs: Laboratory Results - last 24 hr 12/15/19 12/15/19 12/15/19 12:40 12:40 12:40 WBC 10.0 RBC 4.67 Hgb 16.1 H Hct 44.4 MCV 95.0 D MCH 34.4 H MCHC 36.2 H RDW 12.5 Plt Count 288 Neut % (Auto) 77.2 H Lymph % (Auto) 14.3 L [place] % (Auto) 6.2 Eos % (Auto) 1.5 L Baso % (Auto) 0.8 Neut # (Auto) 7700 H Lymph # (Auto) 1400 [place] # (Auto) 600 Eos # (Auto) 200 Baso # (Auto) 100 Sodium 130 L Potassium 3.3 L Chloride 89 L Carbon Dioxide 27 BUN 13 Creatinine 0.55 Estimated GFR > 60.0 BUN/Creatinine Ratio 23.6 H Glucose 140 H Calcium 9.9 Total Bilirubin 1.5 H AST 51 H ALT 59 H Alkaline Phosphatase 111 Ammonia Total Creatine Kinase CK-MB (CK-2) CK-MB (CK-2) Rel Index Troponin I Total Protein 8.6 H Albumin 4.8 Globulin 3.8 Albumin/Globulin Ratio 1.3 Lipase 102 Procalcitonin 0.13 Urine RBC Urine WBC Urine Bacteria Ur Culture Indicated? Micro UA Comment Salicylates U Opiates 300ng/mL cut Ur Oxycodone Screen Urine Methadone Screen Acetaminophen < 10 L Ur Barbiturates Screen U Tricyclic Antidepress Ur Phencyclidine Scrn Ur Amphetamines Screen U Methamphetamines Scrn Ur MDMA Scrn (Ecstasy) U Benzodiazepines Scrn Urine Cocaine Screen U Marijuana (THC) Screen Ethyl Alcohol < 10 12/15/19 12/15/19 12/15/19 12:40 13:24 13:40 WBC RBC Hgb Hct MCV MCH MCHC RDW Plt Count Neut % (Auto) Lymph % (Auto) [place] % (Auto) Eos % (Auto) Baso % (Auto) Neut # (Auto) Lymph # (Auto) [place] # (Auto) Eos # (Auto) Baso # (Auto) Sodium Potassium Chloride Carbon Dioxide BUN Creatinine Estimated GFR BUN/Creatinine Ratio Glucose Calcium Total Bilirubin AST ALT Alkaline Phosphatase Ammonia < 9 L Total Creatine Kinase 37 CK-MB (CK-2) TNP CK-MB (CK-2) Rel Index TNP Troponin I < 0.012 Total Protein Albumin Globulin Albumin/Globulin Ratio Lipase Procalcitonin Urine RBC Urine WBC Urine Bacteria Ur Culture Indicated? Micro UA Comment Salicylates < 1.0 U Opiates 300ng/mL cut Ur Oxycodone Screen Urine Methadone Screen Acetaminophen Ur Barbiturates Screen U Tricyclic Antidepress Ur Phencyclidine Scrn Ur Amphetamines Screen U Methamphetamines Scrn Ur MDMA Scrn (Ecstasy) U Benzodiazepines Scrn Urine Cocaine Screen U Marijuana (THC) Screen Ethyl Alcohol 12/15/19 12/15/19 13:45 13:45 WBC RBC Hgb Hct MCV MCH MCHC RDW Plt Count Neut % (Auto) Lymph % (Auto) [place] % (Auto) Eos % (Auto) Baso % (Auto) Neut # (Auto) Lymph # (Auto) [place] # (Auto) Eos # (Auto) Baso # (Auto) Sodium Potassium Chloride Carbon Dioxide BUN Creatinine Estimated GFR BUN/Creatinine Ratio Glucose Calcium Total Bilirubin AST ALT Alkaline Phosphatase Ammonia Total Creatine Kinase CK-MB (CK-2) CK-MB (CK-2) Rel Index Troponin I Total Protein Albumin Globulin Albumin/Globulin Ratio Lipase Procalcitonin Urine RBC None seen Urine WBC None seen Urine Bacteria None seen Ur Culture Indicated? Cult not indicated Micro UA Comment Microscopic normal Salicylates U Opiates 300ng/mL cut Negative Ur Oxycodone Screen Negative Urine Methadone Screen Negative Acetaminophen Ur Barbiturates Screen Negative U Tricyclic Antidepress Negative Ur Phencyclidine Scrn Negative Ur Amphetamines Screen Negative U Methamphetamines Scrn Negative Ur MDMA Scrn (Ecstasy) Negative U Benzodiazepines Scrn Negative Urine Cocaine Screen Negative U Marijuana (THC) Screen Negative Ethyl Alcohol Assessment & Plan Assessment & Plan narrative: Patient with delirium and acute a confusional state over the last 3 days. Unsure etiology differential is broad at this point. Possibilities include psychologic such as depression she says she is quite anxious and nervous on evaluation today. She also has has hyponatremia and hypokalemia. She will be started back on sodium and potassium could be due to adrenal insufficiency will check a morning cortisol level this is abnormal may proceed with a cosyntropin study test. She has a mild elevated protein level but this has not been high. Will check a serum protein electrophoresis. I do not see any signs of acute cerebrovascular disease cardiac disease does not appear to be toxic related urine toxicology is negative she is not known to be an alcoholic or drinker. Although we will send for toxicology screen. Do not see that it is infectious she has a normal white blood cell count no fever lactic acid procalcitonin are normal. She has not and shock. Does not appear to be seizure related. His this is been consistent or last 3 days. There has been no seizure-like activity. Differential possibilities include adrenal insufficiency psychiatric will check a thyroid. Hyponatremia. Chronic over the past few months. Her sodium is chronically low at 130 do not think this is acute cause of her delirium. Will continue workup with this. In will obtain a urine sodium she will be provided normal saline. Monitor closely sodium level Hypothyroidism on replacement. Will continue with thyroid replacement check a TSH. Hypokalemia. Will provide potassium replacement IV and then orally once she is tolerating diet. Severe mild nutrition. Patient is continuing to lose weight even after previous hospitalization have a nutritional consult to evaluate her. Scores GCS Bethanie coma scale eye opening: Spontaneous Bethanie coma scale verbal response: Confused Gilman coma scale motor response: Obey commands Gilman coma scale total score: 14 Quality VTE Deep Vein Thrombosis/Pulmonary Embolism Present on Admission: No
[2019-12-15 18:21] LABS: Thyroid Stimulating Hormone 9.95 uIU/mL (0.47-4.68)
[2019-12-15 19:44] LABS: Folate 4.3 ng/mL (2.76-20.0)
[2019-12-15 19:59] LABS: Vitamin B12 467 pg/mL (239-931)
[2019-12-15] MEDS: POTASSIUM CHLORIDE 20 MEQ TAB PO (20:33)
--- NOTE | 2019-12-15 22:21 | PC.NURSE ---
Admit/Evening Shift Note- Patient arrived to room via stretcher from ER at 1510. Patients father with here to assist with admission questions. Admit questions done, medications reviewed, and physical assessment completed. Patiet alert and orientedx2. Patient able to state her name and birthday but not the current date. Patient able to state shes in a hospital but not where the hospital is and why she is here. Patient stated she was in [place] and it was 2017. NIH scale done. a r collections rep equal. No facial droop. Speech clear but seems to have trouble finding words. Father reports increased weakness and confusion over the last 3days. Patient needed 2PA and walker to stand and [place] [facility] No complaints of pain or discomfort. No complaints of N/V. Patient and father both reported very poor appitite and significant weight loss of the last year. Patient refused dinner but did drink a chocolate ensure. Attempted to orient patient to bed and bed controls, room, lights, phone, and call bravo/tv remote. Patient unable to remember any of these instructions after 10 minutes. Patient will need frequent reorientation. Safety measures in place. Room within view of nurses station for visual checks and safety. call bravo and phone within reach. will continue to monitor.
--- NOTE | 2019-12-15 23:57 | PC.NURSE ---
Addendum entered by Isis Maloney R.N. 12/16/19 04:19: Elevated BP 156/100, paged Dr Brown d/t no void and rising BP. Dr Brown wants to resume BP meds at 0900 and no catheterization at this time. Addendum entered by Isis Maloney R.N. 12/16/19 04:08: Patient hasn't voided since ED straight cath, BS for estimated 341. 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 Mental status not at baseline prior to surgery. Lap incision, ADRI, bruising to abdomen. Bruise to left upper arm. Denies SOB, on room air. Tele: Sinus Arrythmia, heart rate irregular on auscultation, denies chest pain, pulses equal in upper and lower extremities. Denies nausea/vomiting. Bowel tones hypoactive, denies passing flatus. Evening shift reported patient unable to void, BS for estimated 53ml. Currently wearing brief. Was straight cath'd in ED, will BS if no void in 8 hours. Patient required 2PMax with pivot to [facility], will evaluate transfer status when/if patient gets OOB. High fall risk due to mentation, bed alarm on and functioning, patient in a view room, acknowledged call light teaching but unsure if patient will use it at this time.
[2019-12-16 04:13] VITALS: BP 156/100; PULSE 73; RESP 18; TEMP 36.2; O2SAT 99
[2019-12-16] MEDS: LEVOTHYROXINE 125 MCG TABLET PO (05:46)
[2019-12-16 06:15] LABS: BUN Creatinine Ratio 24.4 (6-22); Blood Urea Nitrogen 10 mg/dL (7-17); Calcium 8.9 mg/dL (8.4-10.2); Carbon Dioxide 25 mmol/L (22-32); Chloride 98 mmol/L (98-107); Estimated Glomerular Filt Rate > 60.0 mL/min (>60); Glucose 123 mg/dL (80-110); HEMOLYSIS < 15 (0-50); Potassium 3.3 mmol/L (3.4-5.1); Sodium 131 mmol/L (137-145)
[2019-12-16 06:45] LABS: Cortisol AM (Before 10AM) 14.7 ug/dL (4.46-22.7)
[2019-12-16] MEDS: SODIUM CHLORIDE 0.9% 1,000 ML 125 ML IV ×2 (07:25→15:17)
[2019-12-16 08:00] VITALS: BP 144/79; PULSE 69; RESP 16; TEMP 36.9; O2SAT 99
--- NOTE | 2019-12-16 08:47 | PM.PN.1 ---
Subjective Subjective Date Patient Seen: 12/16/19 Time Patient Seen: 08:47 Interval history: Patient seen and evaluated this morning. Patient is stable. Blood pressure is a little bit high overnight. Has not had a lot urine output. Still quite confused she does not recognize me this morning. Does not know she is at [facility] recognizes herself unsure of the date. She really has no complaints the good news is she is eating this morning. She is not complaining of nausea which has been her complain on and off for number of months now. MRI scan laboratory tests so far unrevealing. Sodium is a little bit low as well as potassium which is being replaced. She is getting IV fluids. Exam Vital Signs (past 8 hours): - 12/16/19 04:13 Temperature 97.2 F L Pulse Rate 73 Respiratory Rate 18 Blood Pressure 156/100 H Pulse Oximetry 99 Oxygen Delivery Method Room Air Oxygen Flow Rate 0 Narrative Exam Narrative: Gen.: Alert disoriented to place and time able to follow simple directions. Poor historian HEENT: NCAT PERRLA tympanic membranes are clear nares are patent oral mucosa is moist no tonsillar hypertrophy neck is supple without lymphadenopathy no thyroid enlargement. Cardio: S1-S2 regular rate and rhythm no murmurs appreciated. Respiratory: Lungs are clear to auscultation no wheezes or crackles normal respiratory effort. Abdomen: Soft nontender no rebound or guarding no liver spleen enlargement no appreciable hernias Extremities: Full range of motion no appreciable weakness no cyanosis or edema. Neurologic: Grossly intact. Objective Labs Result Diagrams: 12/15/19 12:40 12/16/19 05:21 Labs: Laboratory Results - last 24 hr 12/15/19 12/15/19 12/15/19 12:30 12:30 12:30 WBC RBC Hgb Hct MCV MCH MCHC RDW Plt Count Neut % (Auto) Lymph % (Auto) [place] % (Auto) Eos % (Auto) Baso % (Auto) Neut # (Auto) Lymph # (Auto) [place] # (Auto) Eos # (Auto) Baso # (Auto) Sodium Potassium Chloride Carbon Dioxide BUN Creatinine Estimated GFR BUN/Creatinine Ratio Glucose Calcium Total Bilirubin AST ALT Alkaline Phosphatase Ammonia Total Creatine Kinase CK-MB (CK-2) CK-MB (CK-2) Rel Index Troponin I Total Protein Albumin Globulin Albumin/Globulin Ratio Lipase Vitamin B12 467 Folate 4.3 Procalcitonin TSH 9.95 H Cortisol AM Sample Urine RBC Urine WBC Urine Bacteria Ur Culture Indicated? Micro UA Comment Salicylates U Opiates 300ng/mL cut Ur Oxycodone Screen Urine Methadone Screen Acetaminophen Ur Barbiturates Screen U Tricyclic Antidepress Ur Phencyclidine Scrn Ur Amphetamines Screen U Methamphetamines Scrn Ur MDMA Scrn (Ecstasy) U Benzodiazepines Scrn Urine Cocaine Screen U Marijuana (THC) Screen Ethyl Alcohol 12/15/19 12/15/19 12/15/19 12:40 12:40 12:40 WBC 10.0 RBC 4.67 Hgb 16.1 H Hct 44.4 MCV 95.0 D MCH 34.4 H MCHC 36.2 H RDW 12.5 Plt Count 288 Neut % (Auto) 77.2 H Lymph % (Auto) 14.3 L [place] % (Auto) 6.2 Eos % (Auto) 1.5 L Baso % (Auto) 0.8 Neut # (Auto) 7700 H Lymph # (Auto) 1400 [place] # (Auto) 600 Eos # (Auto) 200 Baso # (Auto) 100 Sodium 130 L Potassium 3.3 L Chloride 89 L Carbon Dioxide 27 BUN 13 Creatinine 0.55 Estimated GFR > 60.0 BUN/Creatinine Ratio 23.6 H Glucose 140 H Calcium 9.9 Total Bilirubin 1.5 H AST 51 H ALT 59 H Alkaline Phosphatase 111 Ammonia Total Creatine Kinase CK-MB (CK-2) CK-MB (CK-2) Rel Index Troponin I Total Protein 8.6 H Albumin 4.8 Globulin 3.8 Albumin/Globulin Ratio 1.3 Lipase 102 Vitamin B12 Folate Procalcitonin 0.13 TSH Cortisol AM Sample Urine RBC Urine WBC Urine Bacteria Ur Culture Indicated? Micro UA Comment Salicylates U Opiates 300ng/mL cut Ur Oxycodone Screen Urine Methadone Screen Acetaminophen < 10 L Ur Barbiturates Screen U Tricyclic Antidepress Ur Phencyclidine Scrn Ur Amphetamines Screen U Methamphetamines Scrn Ur MDMA Scrn (Ecstasy) U Benzodiazepines Scrn Urine Cocaine Screen U Marijuana (THC) Screen Ethyl Alcohol < 10 12/15/19 12/15/19 12/15/19 12:40 13:24 13:40 WBC RBC Hgb Hct MCV MCH MCHC RDW Plt Count Neut % (Auto) Lymph % (Auto) [place] % (Auto) Eos % (Auto) Baso % (Auto) Neut # (Auto) Lymph # (Auto) [place] # (Auto) Eos # (Auto) Baso # (Auto) Sodium Potassium Chloride Carbon Dioxide BUN Creatinine Estimated GFR BUN/Creatinine Ratio Glucose Calcium Total Bilirubin AST ALT Alkaline Phosphatase Ammonia < 9 L Total Creatine Kinase 37 CK-MB (CK-2) TNP CK-MB (CK-2) Rel Index TNP Troponin I < 0.012 Total Protein Albumin Globulin Albumin/Globulin Ratio Lipase Vitamin B12 Folate Procalcitonin TSH Cortisol AM Sample Urine RBC Urine WBC Urine Bacteria Ur Culture Indicated? Micro UA Comment Salicylates < 1.0 U Opiates 300ng/mL cut Ur Oxycodone Screen Urine Methadone Screen Acetaminophen Ur Barbiturates Screen U Tricyclic Antidepress Ur Phencyclidine Scrn Ur Amphetamines Screen U Methamphetamines Scrn Ur MDMA Scrn (Ecstasy) U Benzodiazepines Scrn Urine Cocaine Screen U Marijuana (THC) Screen Ethyl Alcohol 12/15/19 12/15/19 12/16/19 13:45 13:45 05:21 WBC RBC Hgb Hct MCV MCH MCHC RDW Plt Count Neut % (Auto) Lymph % (Auto) [place] % (Auto) Eos % (Auto) Baso % (Auto) Neut # (Auto) Lymph # (Auto) [place] # (Auto) Eos # (Auto) Baso # (Auto) Sodium Potassium Chloride Carbon Dioxide BUN Creatinine Estimated GFR BUN/Creatinine Ratio Glucose Calcium Total Bilirubin AST ALT Alkaline Phosphatase Ammonia Total Creatine Kinase CK-MB (CK-2) CK-MB (CK-2) Rel Index Troponin I Total Protein Albumin Globulin Albumin/Globulin Ratio Lipase Vitamin B12 Folate Procalcitonin TSH Cortisol AM Sample 14.7 Urine RBC None seen Urine WBC None seen Urine Bacteria None seen Ur Culture Indicated? Cult not indicated Micro UA Comment Microscopic normal Salicylates U Opiates 300ng/mL cut Negative Ur Oxycodone Screen Negative Urine Methadone Screen Negative Acetaminophen Ur Barbiturates Screen Negative U Tricyclic Antidepress Negative Ur Phencyclidine Scrn Negative Ur Amphetamines Screen Negative U Methamphetamines Scrn Negative Ur MDMA Scrn (Ecstasy) Negative U Benzodiazepines Scrn Negative Urine Cocaine Screen Negative U Marijuana (THC) Screen Negative Ethyl Alcohol 12/16/19 05:21 WBC RBC Hgb Hct MCV MCH MCHC RDW Plt Count Neut % (Auto) Lymph % (Auto) [place] % (Auto) Eos % (Auto) Baso % (Auto) Neut # (Auto) Lymph # (Auto) [place] # (Auto) Eos # (Auto) Baso # (Auto) Sodium 131 L Potassium 3.3 L Chloride 98 Carbon Dioxide 25 BUN 10 Creatinine 0.41 L Estimated GFR > 60.0 BUN/Creatinine Ratio 24.4 H Glucose 123 H Calcium 8.9 Total Bilirubin AST ALT Alkaline Phosphatase Ammonia Total Creatine Kinase CK-MB (CK-2) CK-MB (CK-2) Rel Index Troponin I Total Protein Albumin Globulin Albumin/Globulin Ratio Lipase Vitamin B12 Folate Procalcitonin TSH Cortisol AM Sample Urine RBC Urine WBC Urine Bacteria Ur Culture Indicated? Micro UA Comment Salicylates U Opiates 300ng/mL cut Ur Oxycodone Screen Urine Methadone Screen Acetaminophen Ur Barbiturates Screen U Tricyclic Antidepress Ur Phencyclidine Scrn Ur Amphetamines Screen U Methamphetamines Scrn Ur MDMA Scrn (Ecstasy) U Benzodiazepines Scrn Urine Cocaine Screen U Marijuana (THC) Screen Ethyl Alcohol Assessment & Plan Assessment & Plan narrative: Acute delirium. Not infectious. Does not appear to be cerebrovascular. Does not appear to be due to underlying seizures. Morning cortisol is normal does not appear to be adrenal insufficiency although she does have low sodium and low potassium these are being replaced. Does not appear to be toxic as her acetaminophen salicylates alcohol level or normal and urine toxicology screen is normal. Does not appear to be endocrine although her vitamin B12 folic acid is okay her thyroid is a little bit out of alignment but not significantly and I do not think she is taking her thyroid replacement. Cannot discolored underlying malignancy. Although there is no appreciable source. Serum protein electrophoresis is pending at this point. She has a high protein level. Cannot disc cleared underlying psychiatric diagnosis as she relates she has been on her a lot of stress. And could be mental health related will go ahead and start her on SSRI. If initial laboratory tests are not improve over the next 24-48 hours. Patient will have to go back home with her father. Will have her work with physical therapy and occupational therapy today. Severe malnutrition. Nutritional consultation today. Hyponatremia. Continue with normal saline liberalize salt in her diet restrict free water. Hypokalemia. Continue with potassium replacement. Hypothyroidism patient's TSH is elevated I suspect she is not taking her thyroid medication continue with current thyroid medication Hypertension. Continue with losartan and Norvasc monitor blood pressure. Disposition and plan awaiting laboratory testing back to see if there is anything revealing is the cause of her acute delirium. Work with physical therapy occupational therapy. If lab tests are unrevealing will plan on discharge tomorrow and continue workup as outpatient. Start SSRI today Quality VTE Deep Vein Thrombosis/Pulmonary Embolism Present on Admission: No
[2019-12-16] MEDS: POTASSIUM CHLORIDE 20 MEQ TAB PO ×2 (10:57→17:26)
[2019-12-16] MEDS: LOSARTAN 50 MG TABLET PO (10:57)
[2019-12-16] MEDS: AMLODIPINE 5 MG TABLET PO (10:57)
[2019-12-16] MEDS: ENOXAPARIN 40 MG/0.4 ML SYRINGE SUBCUT (10:57)
[2019-12-16 11:00] VITALS: BP 154/92; PULSE 114; RESP 18; TEMP 36.1; O2SAT 99
--- NOTE | 2019-12-16 11:50 | OT.IP.EVAL ---
Past Medical History (Last Reviewed 12/15/19 @ 14:47 by Ilir Elena DO) Depression (07/21/14) Diabetes mellitus (07/21/14) Diverticulum of esophagus (02/13/17) FHx: SVT (supraventricular tachycardia) (Acute) Hyperlipidemia (07/21/14) Hypertension (Inactive 06/13/12) Obesity (07/21/14) Surgical History (Last Reviewed 12/15/19 @ 14:47 by Ilir Elena DO) History of cholecystectomy (Acute) Occupational Therapy Inpatient Evaluation/Re-Eval M1 PT/OT-IP Prior Functional Status Start: 12/16/19 08:51 Freq: NEEDED Status: Active Protocol: Document 12/16/19 11:50 PJM (Rec: 12/16/19 13:57 PJM [id number]) Medical Review Prior Functional Status Medical History Reviewed Yes Diet/Fluid Consistency Regular Communication WNL Mobility and Gait Per father, pt ambulated without a device. Activities of Daily Living and IADL's Per father, pt was independent with all self care, drove, did grocery shopping and cooking for the family. Prior Functional Level (Other details) Pt lives with her father and mother in a garage converted into a bedroom. She uses bathroom and kitchen in the house. Social History Household Members family Living Arrangements House Number of Floors (Floors) Two Floors Number of Stairs To Enter/Railing? 3 stairs to enter with B rails , steps down into garage bedroom with L rail; stair lift used by pt's mother to go to second story of home. Home Environment Standard Height Toilet,Walk in Shower Employment Status Retired Additional Social History Comment pt does not use any DME at home M2 OT-IP Current Condition Start: 12/16/19 13:23 Freq: Status: Active Protocol: Document 12/16/19 11:50 PJM (Rec: 12/16/19 13:57 PJM [id number]) Occupational Therapy Current Condition Current Condition Evaluation Date 12/16/19 Treatment Diagnosis decreased cognition, act tolerance, self care with dx unknown Diagnosis Onset Date 12/15/19 Post Operative Precautions Other Precautions fall risk, bed/chair alarm, confusion M3 OT- IP Subjective and Pain Start: 12/16/19 13:23 Freq: Status: Active Protocol: Document 12/16/19 11:50 PJM (Rec: 12/16/19 13:57 PJ [id number]) OT- Subjective Occupational Therapy Visit Type Type Initial Evaluation Visit Start Time 11:25 Visit Stop Time 11:50 Total Visit Minutes 25 Notes Pt seen up in recliner after P.T. session. Occupational Therapy Visit Comments Patient Comments I feel uncomfortable about everything going on here. Patient/Caregiver Goals none verbalized this session OT Pain Assessment Pain Present Pain Present Denied Pain M4 OT- IP ADL's Start: 12/16/19 13:23 Freq: Status: Active Protocol: Document 12/16/19 11:50 PJM (Rec: 12/16/19 13:57 PJ [id number]) OT [id number] General Evaluation Self-Feeding Ability Independent Comments OT Self-Feeding Comments per RN, decreased appetite OT ADL-Grooming General Evaluation Grooming Ability Standby Assistance Areas Needing Assistance Retrieving/Set-up of Grooming Items,Combing/Brushing Hair, Face Washing Comments OT Grooming Comments fair thoroughness, cues to initiate tasks and increase thoroughness OT ADL-Oral Care Comments Oral Care Comments pt does not have dentures here and declined oral care this session OT ADL-Dressing General Eval Lower Body Dressing Ability Standby Assistance Areas Needing Assistance Socks Comments OT Dressing Comments pt reports mild abdominal discomfort when bending over to don sock due to recent cholecystectomy; pt does not modify her technique when cued to do so to avoid abdominal pain OT ADL-Toileting Comments OT Toileting Comments did not occur this session OT ADL-Bathing Comments OT Bathing Comments to be assessed M5 OT- IP IADL's Start: 12/16/19 13:23 Freq: Status: Active Protocol: Document 12/16/19 11:50 PJM (Rec: 12/16/19 13:57 [facility] [id number]) OT-Instrumental Activities of Daily Living Deficits IADL Deficits Identified Deficits Home Safety Awareness Awareness of Need for Assistance at Home Decreased Awareness Ability to Problem Solve Emergency Unable to Problem Solve Situations Medication Management Medication Management Caregiver Administers Medication Management Comments pt needs total assist at present due to confusion and short term memory deficits Money Management Money Management Caregiver Provides Assistance Money Management Comments pt needs total assist at present due to confusion and short term memory deficits Meal Preparation Meal Preparation Caregiver Provides Assist Meal Preparation Comments pt needs total assist at present due to confusion and short term memory deficits Engine Repairer Production Engine Repairer Production Caregiver Provides Assist Engine Repairer Production Comments pt needs total assist at present due to confusion and short term memory deficits Driving Driving Concerns Identified Regarding Safety Driving Comments pt needs total assist at present due to confusion and short term memory deficits M6 OT- IP Functional Cognition Start: 12/16/19 13:23 Freq: Status: Active Protocol: Document 12/16/19 11:50 PJM (Rec: 12/16/19 13:57 PJM [id number]) Cognitive Factors Limiting Selfcare Function Cognitive Ability Level of Alertness Alert,Confusional State Patient Orientation Name Attention Span Ability Capable of Focused Attention Ability to Follow Commands Able to Follow One Step Commands Memory Description Short Term Impaired,Working Impaired Safety Awareness Decreased Recall of Precautions,Underestimates Need for Assistance Problem Solving Ability Unable to Identify Errors, Needs Assist to Identify Solutions Executive Function Ability Unable to Hold Focus,Unable to Make Plans,Unable to Organize Plans,Unable to Remember Details Abstract Thinking Ability Unable to Draw Logical Conclusions Cognitive Tests MOCA Pt scored 12/30 on MOCA Version 7.1 indicating moderate impairment. Norm is 26/30. Pt had difficulty with trailmaking, cube drawing, naming, short term and working memory, sustained attention, abstractions and is oriented to self only. Number and hand placement on clock drawing WNL Cognitive Comments Cognitive Assessment Comments Pt does follow one step commands, Affect flat. OT- Vision and Hearing OT- Hearing Assessment OT- Hearing Assessment WFL OT- Vision Assessment Visual Acuity WFL,Glasses For Reading Vision Assessment Comments pt denies any recent vision changes M7 OT- IP Mobility and Balance Start: 12/16/19 13:23 Freq: Status: Active Protocol: Document 12/16/19 11:50 PJM (Rec: 12/16/19 13:57 PJM [id number]) OT-Transfer Assessment Comments Mobility Comments see P.T. notes OT- Gait Assessment Comments Gait Ability Comments see P.T. notes OT- Balance Assessment Sitting Balance and Reactions Static Sitting Balance Ability Good Dynamic Sitting Balance Ability Good Comments Other Balance Tests/Deviations/Treatment during lower body dressing in : chair M8 OT- IP Objective Assessments Start: 12/16/19 13:23 Freq: Status: Active Protocol: Document 12/16/19 11:50 PJM (Rec: 12/16/19 13:57 PJM [id number]) OT Gross Range of Motion Upper Extremity Range of Motion Assessment Within Functional Limits OT Strength Upper Extremity Strength Assessment Within Functional Limits Hand Research Director Strength Hand Dominance Right OT- Coordination Assessment Comments Coordination Comments BUE WFL OT-Muscle Tone Assessment Muscle Tone WNL Yes OT Sensation Assessment Comments Summary Comments pt detects lt touch in BUE's Edema Edema Absent M9 OT- IP Assessment and Plan Start: 12/16/19 13:23 Freq: Status: Active Protocol: Document 12/16/19 11:50 PJM (Rec: 12/16/19 13:57 PJM [id number]) OT Summary Assessment and Plan Potential Rehabilitation Potential Good Analytic Complexity at Evaluation Low Summary OT Impairments Functional Cognition, Functional Mobility,Dressing, Toileting,Bathing,Toilet Transfers,Shower Transfers, Activity Tolerance Assessment Summary Low complexity OT assessment completed on this 64 yr old woman recently discharged from [facility] on 12/07/19 after cholecystectomy. Pt now admitted with acute delirium of unknown cause, possibly psychiatric in nature. Work up still in progress. Pt is normally completely independent with all self care, IADLS, driving and she does shopping and cooking for her family. Pt lives with her parents. Pt's primary deficit is confusion with pt oriented to self only and score of 12/30 ( moderately impaired) on MOCA. See details above. Pt currently using FWW for mobility per P.T. She is SBA with seated self care skills with mod verbal encouragement needed to initiate and complete tasks, Affect flat. Plan further OT assessment in AM for standing grooming at sink and shower. Note that pt needs to use 3 stairs access the house and another threes stairs to reach her bedroom. Per chart notes, pt may d/c home tomorrow for further out pt workup, with assist from her father. Her mother is unable to provide assist due to her own health issues. Goals Self-Feeding Goal Minimal Assistance Grooming Goal Standby Assistance Dressing Goal Standby Assistance Toileting Goal Standby Assistance Bathing Goal Standby Assistance Toilet Transfer Goal Standby Assistance Shower Transfer Goal Standby Assistance,Walk-in Shower,Shower Chair Patient/Caregiver Education Goal Caregiver Independent Assisting Patient OT-Other Goals Grooming to be done standing at sink. Days to Meet Goals 2 Frequency of Treatment Frequency Of Treatment Once a Day Treatment Plan OT Treatment Plan ADL Training,Functional Cognition Training,Functional Mobility,Patient/Family Education,Discharge Planning Discharge Recommendations OT Discharge Recommendations Home with 15/04 Assist Home Equipment Needs shower seat? Transportation Needs at Discharge Private Vehicle
--- NOTE | 2019-12-16 13:16 | CM.DANOTE ---
Patient is a 64 year old female who was a READMIT on 12/15/19 for Altered Mental Status. Pt has [facility] and [facility] for insurance and her PCP is Dr. Marlon Brown. EMR was reviewed. Per MD, pt with acute delirium with unknown etiology and does not currently appear to be due to adrenal insufficiency and potassium/sodium levels slightly off. Pt has no known hx of Mental health but possible Psych Consult to be requested if no medical cause apparent. Per RN, pt still quite confused and not oriented to self or place. Per PT, pt was able to ambulate well but remains significantly confused. Pt was recently admitted to [facility] on December 06, 2019 and had Lap Marce performed and pt was able to completed bedside assessment and confirm that she lives at home with her elderly parents that she helps and is independent and drives at baseline with no confusion or hx of confusion. Pt discharged home with family and friend support on 12/07/19 with no needs. SW called pt's father and left msg to gather additional information as pt currently unable to participate in bedside assessment due to confusion. Plan: SW to follow closely towards determining etiology of delirium/confusion towards determining d/c planning needs. 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 Yes: DPOA for HC, NO Blood, POLST History Provided By Patient,Family Member,Medical Record Has Patient been admitted in last 30 Yes days? Comment Discharged from [facility] on 12/07/19 to home after Marce Prior Living Arrangements House Household Members family Type of transporation used prior to Drives own vehicle admit Comment Home with elderly parents and drives and is independent at baseline Independent with ADL's Yes Is patient alert and oriented? Yes Caregiver for Another Yes: Lives with elderly patients Patient/Family Preference Home with Home Health Comment Follow for further PT/OT to determine if HH needed Barriers to Discharge No Discharge Plan Home Transportation Arrangement Father has been bedside and can transport at d/c if pt safe for home Referrals Initiated None needed Review Status In Process Please Provide Date Initial DC 12/16/19 Assessment Was Performed Next Review Type Continued Stay Review
--- NOTE | 2019-12-16 13:42 | PT.IIE ---
Surgical History (Last Reviewed 12/15/19 @ 14:47 by Ilir Elena DO) History of cholecystectomy (Acute) Medical History (Last Reviewed 12/15/19 @ 14:47 by Ilir Elena DO) Depression (07/21/14) Diabetes mellitus (07/21/14) Diverticulum of esophagus (02/13/17) FHx: SVT (supraventricular tachycardia) (Acute) Hyperlipidemia (07/21/14) Hypertension (Inactive 06/13/12) Obesity (07/21/14) Physical Therapy Inpatient Evaluation/Re-Eval M1 PT/OT-IP Prior Functional Status Start: 12/16/19 08:51 Freq: NEEDED Status: Active Protocol: Document 12/16/19 10:45 HH (Rec: 12/16/19 13:42 [id number]) Medical Review Prior Functional Status Medical History Reviewed Yes Mobility and Gait Per EMR from last hospital admission, Patient is Independent with all ADL's and drives at baseline. Activities of Daily Living and IADL's Patient Currently lives with her parents who she cares for in a multiple level home but the home has a stair lift system to get upstairs and down. Pt's father reports pt does assist cooking for her mother. Social History Household Members family Living Arrangements House Number of Floors (Floors) Two Floors Number of Stairs To Enter/Railing? pt lives in the garage apartment without bathroom. Pt uses the bathroom on main floor has 3 MARY front entrace with B rails , then 3 steps down to garage with L railing. Home Environment Standard Height Toilet,Walk in Shower Home Equipment Grab Bars Near Toilet,Grab Bars In Shower Employment Status Unknown Additional Social History Comment Patient Currently lives with her parents who she cares for since last year. Pt's father reports pt's mother had a heart attack and stroke last year and pt has since been very worried about both parents' health. He stated pt did not have any psy break down/ acute episode but she dose have depression and anxiety. Pt had laparoscopic cholecystectomy on 12/04 M2 PT-IP Current Condition Start: 12/16/19 08:51 Freq: NEEDED Status: Active Protocol: Document 12/16/19 10:45 HH (Rec: 12/16/19 13:42 [id number]) Physical Therapy Current Condition Current Condition Evaluation Date 12/16/19 Treatment Diagnosis Acute AMS, unexplainted weight loss, generalized weakness Onset Date 3 days ago Precautions Abdominal Surgery Precautions Log Roll,Lifting Restrictions, Gait Belt above Incisional Area Weight Bearing Status Weight Bearing Status Full Weight Bearing M3 PT-IP Subjective Start: 12/16/19 08:51 Freq: NEEDED Status: Active Protocol: Document 12/16/19 10:45 HH (Rec: 12/16/19 13:42 [id number]) Subjective Physical Therapy Visit Type Type Initial Evaluation Visit Start Time 10:45 Visit Stop Time 11:15 Total Visit Minutes 30 Notes RN Emily reports pt needed 2PA for BSC transfer who was very anxious to mobilize. Number of RADIATION PHYSICIST Visits 0 Physical Therapy Visit Comments Patient Comments I think im at home and i think this year is 2017 Patient Goals unable to obtain Therapy Pain Assessment Pain Present Pain Present Denied Pain M4 PT-IP Mobility and Gait Start: 12/16/19 08:51 Freq: NEEDED Status: Active Protocol: Document 12/16/19 10:45 HH (Rec: 12/16/19 13:42 [id number]) PT-Bed Mobility Assessment Rolling Type of Rolling Roll to Right Level of Assist Contact Guard Assistance Supine to Sit Supine to Sit Minimal Assistance Scooting Scooting to Edge of Bed Contact Guard Assistance PT-Transfer Assessment Sit to and From Stand Sit to and from Stand Minimal Assistance,1 Person Assistance,Use of Upper Extremities Equipment Transfer Assistive Device Gait Belt,Front Wheeled Walker Orthotic/Prosthetic Devices or Brace: No Transfers Transfer Destination Bed,Chair,Toilet Transfer Technique with FWW Transfer Ability Level of Assist Minimal Assistance,Use of Upper Extremities Comments Mobility Comments Pt was up in bed upoon PT arrival. AxO x1 to her name and parents names only, but able to follow simple command. Pt completed supine to sit from sidelying position but took approx 12 seconds d/t c/o weakness. She then sat up unsupportedly but c/o anxious to stand up since she thinks non confident. BP sitting = 154/92 HR 115 EMERGENCY MEDICAL SERVICES COORDINATOR Carlos Alberto came in and cont. encouraging pt to stand up with 2 PA. Pt stood up with min A FWW at the end and able to mobilize to bathroom to encourage voiding. Pt was able to transfer by verbal cueing using grab bar and FWW for instruction. Pt did not void at the end but she was very anxious to stand up again. Pt then completed sit to stand with min A with grab bar after encouragement. She mobilized to chair and sat down safely with cueing to use chair armrests. Call light placed within reach and chair alarm activated. BP at 150/ 106 HR 117 Gait Assessment Gait Gait Assistance Required: Contact Guard Assist Distance (Feet) 8 Able to Maintain Weight Bearing Status Yes During Gait Assistive Devices Assistive Device Gait Belt,Front Wheeled Walker Orthotic/Prosthetic Devices or Brace: No Gait Deviations General Gait Pattern Decreased Stride Length, Decreased Feet Clearance Factors Limiting Gait Function Factors Limiting Gait Function Decreased Activity Tolerance, Decreased Strength,Difficulty Following Directions,Poor Balance,Poor Safety Awareness Comments Gait Comments check mobility comments. Pt overall reacts slowly and need constant cues for directions and instructions. Stair Climbing Assessment Comments Stair Climbing Comments did not assess PT-Balance Assessment Sitting Balance and Reactions Static Sitting Balance Ability Normal Dynamic Sitting Balance Ability Normal Standing Balance and Reactions Static Standing Balance Ability Normal Dynamic Standing Balance Ability Normal Device Used FWW M5 PT-IP Objective Assessments Start: 12/16/19 08:51 Freq: NEEDED Status: Active Protocol: Document 12/16/19 10:45 HH (Rec: 12/16/19 13:42 [id number]) Orientation Orientation/Cognition Level of Alertness Confusional State Orientation Name Language Function Ability No Deficits Noted Safety Awareness Decreased Safety Awareness Comments Pt is delirius and but able to follow simple commands. She was only able to recall her name and parents' names. Gross Range of Motion Upper Extremity ROM Assessment Within Functional Limits Lower Extremity ROM Assessment Within Functional Limits Strength Upper Extremity Strength Assessment Within Functional Limits Lower Extremity Strength Assessment Within Functional Limits M6 PT-IP Treatment Start: 12/16/19 08:51 Freq: NEEDED Status: Active Protocol: Document 12/16/19 10:45 HH (Rec: 12/16/19 13:42 [email or web address]) Physical Therapy Treatment Education Education Provided Safety M7 PT-IP Assessment and Plan Start: 12/16/19 08:51 Freq: NEEDED Status: Active Protocol: Document 12/16/19 10:45 HH (Rec: 12/16/19 13:42 [id number]) PT Summary Assessment and Plan Potential Rehabilitation Potential Good Status of Condition at Evaluation Evolving Summary Impairments Strength,Balance,Cognition, Activity Tolerance Assessment Summary This is a low complexity for this 64yo female admitted to hospital due to new onset of AMS, increased weight loss and generalized weakness d/t unknown pathology. Pt is delirius and but able to follow simple commands. She was only able to recall her name and parents' names. Spoke to pt's father on the phone today and pt did not have hx of AMS. She was also independent for all mobility and able to provide care for her mother who had a stroke last year. Pt currently needs extensive cues for guidance and safety cues, along with close CGA for all mobility. Her VS appears to be stable and WNL but she will benefit from skilled therapy to improve her mobility and strength since she has multiple steps at home. Goals Bed Mobility Goal Standby Assistance Transfer Goal Standby Assistance,Front Wheeled Walker Gait Goal Standby Assistance,Front Wheel Walker Gait Distance 200 Other Goals 3 STEPs with B rails for front entrance 3 STEPs with L rail for garage entrance Days to Meet Goals 5 Frequency of Treatment Frequency Of Treatment Once a Day Treatment Plan Physical Therapy Treatment Plan Bed Mobility Training,Transfer Training,Gait Training, Therapeutic Exercise,Balance Retraining,Discharge Planning Other Recommendations and Next Treatment mobility as haroldo without AD Focus stair climbing if possible Recommendations To Nursing Amount of Assist Needed 1 Person Assist Discharge Recommendations PT Discharge Recommendations Home,Home with Assistance Transportation Needs at Discharge Private Vehicle
[2019-12-16 15:10] LABS: Osmolality, Serum 271 mOsmol/kg (280-301)
--- NOTE | 2019-12-16 15:18 | PC.NURSE ---
Day Shift Discussed with Dr Brown this AM that pt had not urinated since in and out in ED yesterday. Plan to bladder scan pt and to get up to BSC. Bladder scan was 766 ml. We got pt up to BSC and she was unable to urinate. Called Dr Brown's office around 1000 and LM to have them call back Re: urinary retention. Around 1100 no call back, called and spoke with Dr Lopez who is international flight attendant. Per Dr Lopez, no catheter, she will see pt shortly. MD arrived to assess pt around 1230, no intervention for urinary retention ordered. Pt has had elevated BP this shift, at change of shift BP was 192/108, she did receive her PO BP meds this AM. Notified Dr Lopez of elevated BP and no urination as of yet, she states she will come and assess the pt.
[2019-12-16 15:30] VITALS: BP 192/100; PULSE 84; RESP 18; TEMP 36.7; O2SAT 100
--- NOTE | 2019-12-16 15:58 | P.PN_ITS ---
Subjective Subjective Date Patient Seen: 12/16/19 Time Patient Seen: 15:58 Interval history: Called by nursing because patient has not urinated. Bladder scan showing 700 cc. Patient denies any pain. Refuses abdominal exam. Talks about wetting the bed. Just wants to lie down and sleep. Exam Vital Signs (past 8 hours): - 12/16/19 08:00 12/16/19 11:00 12/16/19 15:30 Temperature 98.4 F 97.0 F L 98.1 F Pulse Rate 69 114 H 84 Respiratory Rate 16 18 18 Blood Pressure 144/79 H 154/92 H 192/100 H Pulse Oximetry 99 99 100 Oxygen Delivery Method Room Air Oxygen Flow Rate 0 Narrative Exam Narrative: General: Well-developed, well-nourished, female, no acute distress, slow speech, unclear answers. Objective Labs Result Diagrams: 12/15/19 12:40 12/16/19 05:21 Labs: Laboratory Results - last 24 hr 12/15/19 12/15/19 12/15/19 12:30 12:30 12:30 Sodium Potassium Chloride Carbon Dioxide BUN Creatinine Estimated GFR BUN/Creatinine Ratio Glucose Serum Osmolality 271 L Calcium Total Bilirubin AST ALT Alkaline Phosphatase Total Protein Albumin Globulin Albumin/Globulin Ratio Lipase Vitamin B12 Folate 4.3 TSH 9.95 H Cortisol AM Sample U Opiates 300ng/mL cut Ur Oxycodone Screen Urine Methadone Screen Acetaminophen Ur Barbiturates Screen U Tricyclic Antidepress Ur Phencyclidine Scrn Ur Amphetamines Screen U Methamphetamines Scrn Ur MDMA Scrn (Ecstasy) U Benzodiazepines Scrn Urine Cocaine Screen U Marijuana (THC) Screen Ethyl Alcohol 12/15/19 12/15/19 12/15/19 12:30 12:40 13:45 Sodium 130 L Potassium 3.3 L Chloride 89 L Carbon Dioxide 27 BUN 13 Creatinine 0.55 Estimated GFR > 60.0 BUN/Creatinine Ratio 23.6 H Glucose 140 H Serum Osmolality Calcium 9.9 Total Bilirubin 1.5 H AST 51 H ALT 59 H Alkaline Phosphatase 111 Total Protein 8.6 H Albumin 4.8 Globulin 3.8 Albumin/Globulin Ratio 1.3 Lipase 102 Vitamin B12 467 Folate TSH Cortisol AM Sample U Opiates 300ng/mL cut Negative Ur Oxycodone Screen Negative Urine Methadone Screen Negative Acetaminophen < 10 L Ur Barbiturates Screen Negative U Tricyclic Antidepress Negative Ur Phencyclidine Scrn Negative Ur Amphetamines Screen Negative U Methamphetamines Scrn Negative Ur MDMA Scrn (Ecstasy) Negative U Benzodiazepines Scrn Negative Urine Cocaine Screen Negative U Marijuana (THC) Screen Negative Ethyl Alcohol < 10 12/16/19 12/16/19 05:21 05:21 Sodium 131 L Potassium 3.3 L Chloride 98 Carbon Dioxide 25 BUN 10 Creatinine 0.41 L Estimated GFR > 60.0 BUN/Creatinine Ratio 24.4 H Glucose 123 H Serum Osmolality Calcium 8.9 Total Bilirubin AST ALT Alkaline Phosphatase Total Protein Albumin Globulin Albumin/Globulin Ratio Lipase Vitamin B12 Folate TSH Cortisol AM Sample 14.7 U Opiates 300ng/mL cut Ur Oxycodone Screen Urine Methadone Screen Acetaminophen Ur Barbiturates Screen U Tricyclic Antidepress Ur Phencyclidine Scrn Ur Amphetamines Screen U Methamphetamines Scrn Ur MDMA Scrn (Ecstasy) U Benzodiazepines Scrn Urine Cocaine Screen U Marijuana (THC) Screen Ethyl Alcohol Assessment & Plan Assessment & Plan narrative: Acute urinary retention. Etiology unclear. She is having difficulty relaxing. If bladder scan shows a L in and out catheterization would be warranted. Will stop her IV fluids at this time. She will need to be encouraged to drink but is quite able to drink from her water bottle. Will stop her metoclopramide to see if this improves her confusion. P sychiatric consult with Dr. fuller pending. Quality VTE Deep Vein Thrombosis/Pulmonary Embolism Present on Admission: No
[2019-12-16 16:30] VITALS: BP 151/74; PULSE 86; O2SAT 100
[2019-12-16 17:34] LABS: Add Manual Diff / Slide Review NO; Basophils Absolute Auto 100 /uL (0-100); Basophils Percent Auto 0.8 % (0-2); Eosinophils Absolute Auto 100 /uL (0-450); Hematocrit 41.3 % (36-46); Hemoglobin 14.6 g/dL (12.0-16.0); Lymphocytes Absolute Auto 1100 /uL (1100-4500); Lymphocytes Percent Auto 14.2 % (25-40); Mean Corpuscular HGB Conc 35.4 % (30-36); Mean Corpuscular Hemoglobin 33.7 PG (26-34); Mean Corpuscular Volume 95.3 fL (80-100); Monocytes Absolute Auto 500 /uL (0-900); Monocytes Percent Auto 5.7 % (3-14); Neutrophils Absolute Auto 6300 /uL (1500-7000); Neutrophils Percent Auto 78.3 % (50-75); Platelet Count 244 X10^3/uL (150-400); Red Blood Cell Count 4.34 X10^6/uL (4.0-5.2); Red Cell Distribution Width 12.5 % (11.6-14.8); White Blood Cell Count 8.1 X10^3/uL (4.5-11.0)
--- NOTE | 2019-12-16 17:44 | PC.NURSE ---
Addendum entered by Michelle Marie R.N. 12/16/19 20:46: 2030 - Pt continues to be confused. Confabulation of words, but able to move all extremities and follow commands. Declines urge to use bathroom. Able to take po med without difficulty. Reports feeling anxious. Attempt to orient to situation and treatment plan. Reinforced safety and call light use. Bed alarm on. Addendum entered by Michelle Marie R.N. 12/16/19 19:20: 1920 - Pt laying in bed. Reports feeling fatigued, however frequently fidgeting around with different things. Declines TV on. Denies need. Call light in reach. Bed alarm on. Original Note: 1700 - Multiple attempt to urinate. Pt sat on BSC for >35 minutes without results. Assist pt to return to bed. Discussed catheter. Pt states you won't even give me a chance to go on my own? Up ambulate around the room and then into the bathroom, Pt with large amount of flatus and small amount of loose stool without any urination. Returned to bed. Bladder scan for 999+. Catheterized. Pt with >1400cc return. Set up in bed for meal. Encourage PO intake. IV saline lock per order. Bed alarm on.
[2019-12-16 18:01] LABS: Sodium Urine Random 119 mmol/L (30-90)
[2019-12-16 19:10] VITALS: BP 156/110; PULSE 93; RESP 18; TEMP 35.9; O2SAT 98
[2019-12-16] MEDS: SERTRALINE 50 MG TABLET PO (20:34)
[2019-12-16] MEDS: SODIUM CHLORIDE 0.9% FLUSH 10 ML IV (20:35)
[2019-12-17] VITALS (7 sets, daily range): BP systolic 148–195; BP diastolic 76–107; PULSE 71–93; RESP 16–18; TEMP 35.9–36.6; O2SAT 97–100
--- NOTE | 2019-12-17 00:53 | PC.NURSE ---
Physician notified of hypertension of . See new order for losartan now
[2019-12-17] MEDS: LOSARTAN 50 MG TABLET PO ×3 (01:20→20:03)
[2019-12-17] MEDS: LEVOTHYROXINE 125 MCG TABLET PO (05:10)
[2019-12-17 05:16] LABS: Add Manual Diff / Slide Review NO; Basophils Absolute Auto 100 /uL (0-100); Basophils Percent Auto 0.8 % (0-2); Eosinophils Absolute Auto 100 /uL (0-450); Hemoglobin 14.5 g/dL (12.0-16.0); Lymphocytes Absolute Auto 1200 /uL (1100-4500); Mean Corpuscular HGB Conc 35.3 % (30-36); Mean Corpuscular Hemoglobin 33.5 PG (26-34); Mean Corpuscular Volume 94.8 fL (80-100); Monocytes Absolute Auto 500 /uL (0-900); Monocytes Percent Auto 5.8 % (3-14); Neutrophils Absolute Auto 6300 /uL (1500-7000); Neutrophils Percent Auto 77.4 % (50-75); Platelet Count 219 X10^3/uL (150-400); Red Blood Cell Count 4.32 X10^6/uL (4.0-5.2); Red Cell Distribution Width 12.6 % (11.6-14.8); White Blood Cell Count 8.1 X10^3/uL (4.5-11.0)
[2019-12-17 05:31] LABS: Alanine Aminotransferase 46 IU/L (<35); Albumin 3.9 g/dL (3.5-5.0); Albumin Globulin Ratio 1.2 (1.0-2.8); Alkaline Phosphatase 88 U/L (38-126); Aspartate Aminotransferase 39 IU/L (14-36); Blood Urea Nitrogen 10 mg/dL (7-17); Carbon Dioxide 22 mmol/L (22-32); Chloride 100 mmol/L (98-107); Estimated Glomerular Filt Rate > 60.0 mL/min (>60); Globulin 3.2 g/dL (1.7-4.1); Glucose 132 mg/dL (80-110); HEMOLYSIS < 15 (0-50); Potassium 3.7 mmol/L (3.4-5.1); Sodium 134 mmol/L (137-145); Total Protein 7.1 g/dL (6.3-8.2)
[2019-12-17] MEDS: POTASSIUM CHLORIDE 20 MEQ TAB PO ×2 (09:49→17:36)
[2019-12-17] MEDS: SODIUM CHLORIDE 0.9% FLUSH 10 ML IV ×2 (09:50→20:03)
[2019-12-17] MEDS: AMLODIPINE 5 MG TABLET PO ×2 (09:50→17:36)
[2019-12-17] MEDS: ENOXAPARIN 40 MG/0.4 ML SYRINGE SUBCUT (09:50)
[2019-12-17 10:43] LABS: Magnesium 2.1 mg/dL (1.6-2.3)
--- NOTE | 2019-12-17 10:45 | P.CONS_ITS ---
History of Present Illness Consult details Date Patient Seen: 12/17/19 Time Patient Seen: 09:30 Chief complaint: Altered mental status Reason for consult: Cognitive confusion delirium Requesting provider: Stacie Lopez Narrative: This is apparently the 1st psychiatric evaluation for this 64 year female who was admitted to the hospital on 12/15/2019 for altered mental status. The patient has a long medical history with significant medical problems that include a past history of depression, diabetes mellitus, esophageal diverticulum, supraventricular tachycardia, hyperlipidemia, hypertension, and obesity. Recently, she presented to her primary care physician, Dr. Brown, with several weeks history of nausea and dental problems. She apparently had not been eating for several weeks and as her nausea worsened decided to seek help. She was found to have elevated liver enzymes and ultrasound revealed gallbladder sludge so the decision was made to admit her, improve her physiologic state, and then operate to remove her gallbladder. The patient was admitted on 12/03/2019, had her gallbladder removed on 12/04/2019 and was discharged on 12/07/2019. At that time, the patient's mentation was normal but she continued to complain of difficulty with nausea and was not really eating very much. The patient returned to the emergency department on 12/15/2019 via EMS after being called regarding concerns for altered mental status. Much of the history was provided by the patient's father reported that she had not been taking her pain medication and the patient's symptoms were worsening. Upon evaluation in the emergency department, the patient appeared to be confused but was able to follow directions. Attention is directed to previous evaluation for further details, but in summary, blood sugar was adequate, the patient had a normal white count, and hyponatremia from previous admission appeared to be normalizing although still at a level of 131. Since her admission, the patient has continued to remain confused and is unable to engage in a coherent and productive conversation. She can answer simple questions about pain, food, as well as follow directions and more less cooperate with the nursing staff. However when asked questions specifically about her mental status and orientation, she is unable to state the date, current location, or even described what is going on currently. She is able to state her name but that is about all. When asked about anything more complex, she rambles in a somewhat tangential manner. She has at times refused to do things at the request of nurses, but when they insist and tell her that it is necessary she is then able to cooperate. The patient is unable to articulate more detailed answers about her mental status including anxiety, depression, hallucinations, delusions, or other psychiatric symptoms. She does not appear to be responding to internal stimuli but does appear to be very confused. When I arrived yesterday to begin the examination, she apparently had not urinated in many hours and the nurses had recently done a check of her bladder volume to find that she had retained over 700 cc. Today, they report that she has been incontinent of urine. In addition, the patient also reports continuing to feel nauseated and unwell. She continues to not eat. Meds Home Medications and Allergies Home Medications Medication Instructions Recorded Confirmed Type Glucose: Home Monitoring Kit 1 kit MISCELLANEOUS DIRECTED 09/05/18 12/04/19 History Test Strips - Freestyle 1 item MISCELLANEOUS TID 09/05/18 12/04/19 History naproxen sodium [Aleve] 1 dose PO PRN PRN 09/05/18 12/03/19 History trazodone 100 mg tablet See Rx Instructions .ROUTE 10/19/19 12/03/19 Rx .COMPLEX #30 tablet losartan 50 mg tablet 50 mg PO DAILY #90 tab 11/10/19 12/03/19 Rx amlodipine 5 mg tablet 5 mg PO DAILY #30 tab 11/17/19 12/03/19 Rx ondansetron 4 mg PO Q6H PRN #20 tab 11/21/19 12/03/19 Rx thyroid (pork) [[place] Thyroid] 120 mg PO DAILY 12/03/19 12/03/19 History hydrocodone-acetaminophen [[place]] 1 tab PO Q4H PRN #14 tab 12/07/19 Rx metoclopramide HCl [Reglan] 10 mg PO QACHS #10 tab 12/07/19 Rx Allergies Allergy/AdvReac Type Severity Reaction Status Date / Time streptomycin [STREPTOMYCIN] Allergy Severe Throat Verified 12/03/19 15:10 swelled up Review of Systems Review of Systems ROS: Yes unobtainable due to mental condition Gastrointestinal Gastrointestinal: Reports nausea Exam Vital Signs (past 8 hours): - 12/17/19 05:00 12/17/19 07:25 Temperature 97.1 F L 97.1 F L Pulse Rate 79 85 Respiratory Rate 16 16 Blood Pressure 161/100 H 159/107 H Pulse Oximetry 97 100 Oxygen Delivery Method Room Air Oxygen Flow Rate 0 Narrative Exam Narrative: MENTAL STATUS EXAMINATION: Appearance: The patient is a moderately obese female dressed in hospital gown and seen sitting up in a chair in her room. Behavior: The patient is relatively calm and more or less cooperative with the examination but appears to be distracted by her nausea and uncomfortable. Eye Contact: Eye contact is poor. Speech: Speech is generally unimpaired with normal rate, rhythm, tone, and volume. Motor Movement: There is mild psychomotor agitation in the form of shifting about in her seat uncomfortably. Gait: Gait was not tested Mood: Stated mood is, ?I do not feel good.? Affect: Affect is distressed and dysphoric and congruent with content. Thought Process: Generally tangential unless asked specific and focused questions requiring a 1 or 2 word answer. Thought Content: There was no apparent suicidal or homicidal ideation, intent, or plan and the patient did not appear to be responding to internal stimuli such as hallucinations, delusions, or ideas of reference. Attention: The patient was poorly attentive to the interview and appeared to be distracted by her own level of discomfort and nausea. Orientation: The patient was oriented only to person and not to place time or circumstance. Memory: Very poor, but not formally tested. Judgement: Poor Insight: Poor Impulse Control: Poor Objective Labs Result Diagrams: 12/17/19 04:58 12/17/19 04:58 Labs: Laboratory Results - last 24 hr 12/15/19 12/16/19 12/16/19 12:30 17:20 18:12 WBC 8.1 RBC 4.34 Hgb 14.6 Hct 41.3 MCV 95.3 MCH 33.7 MCHC 35.4 RDW 12.5 Plt Count 244 Neut % (Auto) 78.3 H Lymph % (Auto) 14.2 L [place] % (Auto) 5.7 Eos % (Auto) 1.0 L Baso % (Auto) 0.8 Neut # (Auto) 6300 Lymph # (Auto) 1100 [place] # (Auto) 500 Eos # (Auto) 100 Baso # (Auto) 100 Sodium Potassium Chloride Carbon Dioxide BUN Creatinine Estimated GFR BUN/Creatinine Ratio Glucose Serum Osmolality 271 L Calcium Magnesium Total Bilirubin AST ALT Alkaline Phosphatase Total Protein Albumin Globulin Albumin/Globulin Ratio Ur Random Sodium 119 H 12/17/19 12/17/19 12/17/19 04:58 04:58 04:58 WBC 8.1 RBC 4.32 Hgb 14.5 Hct 41.0 MCV 94.8 MCH 33.5 MCHC 35.3 RDW 12.6 Plt Count 219 Neut % (Auto) 77.4 H Lymph % (Auto) 15.0 L [place] % (Auto) 5.8 Eos % (Auto) 1.0 L Baso % (Auto) 0.8 Neut # (Auto) 6300 Lymph # (Auto) 1200 [place] # (Auto) 500 Eos # (Auto) 100 Baso # (Auto) 100 Sodium 134 L Potassium 3.7 Chloride 100 Carbon Dioxide 22 BUN 10 Creatinine 0.50 L Estimated GFR > 60.0 BUN/Creatinine Ratio 20.0 Glucose 132 H Serum Osmolality Calcium 9.0 Magnesium 2.1 Total Bilirubin 1.0 AST 39 H ALT 46 H Alkaline Phosphatase 88 Total Protein 7.1 Albumin 3.9 Globulin 3.2 Albumin/Globulin Ratio 1.2 Ur Random Sodium Assessment & Plan Assessment and plan (1) Altered mental status: Qualifiers: Altered mental status type: unspecified Qualified Code(s): R41.82 - Altered mental status, unspecified Current visit: Yes Status: Acute (2) Hyponatremia: Current visit: No Status: Acute (3) Dehydration: Current visit: No Status: Acute (4) Nausea: Current visit: No Status: Acute (5) Weakness: Current visit: No Status: Acute Assessment & Plan narrative: Patient is a 64-year-old female with a recent history of cholecystectomy 12 days ago who has now been readmitted for altered mental status. Differential diagnosis of delirium and confusional states is extensive and her recent history does not provide a readily available answer. Differential diagnosis and recommendation Thorough review of possible Drugs and toxins * Review prescription medications for anticholinergic, toxic, side effect, or hyponatremia effect. * Review possible non prescription medication such as antihistamines * Withdrawal appears unlikely * Possible poisons? Examine for possible infectious causes * Sepsis Metabolic derangements * Hyponatremia is probably the most likely culprit at this time, recommend correcting sodium gradually to normal and improving nutrition to see if this helps. * Endocrine disturbance-check glucose and thyroid function. * Review for possible nutritional deficits given her recent history in the last several weeks. Brain disorders * Encephalitis, meningitis, intracranial masses all appear unlikely * Psychiatric disorders -will continue to follow up with you to rule out possible catatonic states related to her recent history of poor nutrition etc. * There appears to be no recent history of head injury but any collateral information to rule this out would be helpful. Systemic disease * Given recent history of cholecystectomy, rule out any other liver disease * Rule out hypertensive encephalopathy, cardiac failure, pulmonary disease or renal failure Other recommendations * Hold all non necessary medications at this time * May continue to give trazodone at night for sleep since the patient has been taking this for several years. May help eliminate sleep deprivation as a possible cause. * Improve hydration and nutrition * Nursing to implement normal Behavioral interventions regarding keeping the patient oriented and calm I will continue to follow the patient with you while she is admitted. Time Spent With Patient Time with patient: 15-24 minutes
--- NOTE | 2019-12-17 10:54 | PC.NURSE ---
Addendum entered by Annie Antony R.N. 12/17/19 14:51: Patient is able to stand as she did with just her and do all operator earlier to go to the commode. This last time it took 3 staff members to get her to the bsc, and then to the bed. Did NIH stroke scale and patient knew how to read all lines in stroke packet, she was able to lift both her arms and legs up without any driftings. Eyes are MARSHALL. She can follow commands but seems to just not want to do anything. BS 124, and 180s. Patient is sleeping soundly at this time. She did not eat well at lunch. She was incontinent in her brief and her urine is foul smelling. Urine sent down for culture. Original Note: Patient was confused more this morning and not following commands well. She would say no when asked to do something, and staff would have to encourage her and then she would get up the commode or sit in the chair. She was incontinent of urine x2, due to urgency. Patient not eating well since being here, but she did drink some ensure this morning with encouragement. and Mental Health Dr here to see patient this am. She is sitting up in the chair now and is comfortable. She just had a phone call and is conversing on the phone. Will check on patient shortly. BS 124 this am.
[2019-12-17 11:15] LABS: Ferritin 430 ng/mL (11-264)
--- NOTE | 2019-12-17 11:50 | OT.IP.TRT ---
Current Diagnoses Dehydration (12/17/19) Hypo-osmolality and hyponatremia (12/17/19) Nausea (12/17/19) Altered mental status, unspecified (12/17/19) Weakness (12/17/19) Occupational Therapy Treatment Note M2 OT-IP Current Condition Start: 12/16/19 13:23 Freq: Status: Active Protocol: Document 12/16/19 11:50 PJM (Rec: 12/16/19 13:57 PJM [id number]) Occupational Therapy Current Condition Current Condition Evaluation Date 12/16/19 Treatment Diagnosis decreased cognition, act tolerance, self care with dx unknown Diagnosis Onset Date 12/15/19 Post Operative Precautions Other Precautions fall risk, bed/chair alarm, confusion M3 OT- IP Subjective and Pain Start: 12/16/19 13:23 Freq: Status: Active Protocol: Document 12/17/19 11:50 PJM (Rec: 12/17/19 12:34 PJM [id number]) OT- Subjective Occupational Therapy Visit Type Type Treatment Note Visit Start Time 11:32 Visit Stop Time 11:50 Total Visit Minutes 18 Notes Pt sitting very slouched in recliner when therapist arrived Occupational Therapy Visit Comments Patient Comments 'I can't do this today. Patient/Caregiver Goals to go home OT Pain Assessment Pain When Pain Assessed After Treatment Pain Present Pain Present Denied Pain M4 OT- IP ADL's Start: 12/16/19 13:23 Freq: Status: Active Protocol: Document 12/17/19 11:50 PJM (Rec: 12/17/19 12:34 PJM [id number]) OT [id number] Comments OT Self-Feeding Comments pt has poor appetite with poor intake; dozes off during meals OT ADL-Grooming General Evaluation Grooming Ability Standby Assistance,Minimal Assistance Areas Needing Assistance Combing/Brushing Hair,Face Washing Comments OT Grooming Comments SBA face washing, MIN assist for thoroughness with hair brushing OT ADL-Oral Care Comments Oral Care Comments pt declined this session OT ADL-Toileting Comments OT Toileting Comments pt adamantly declined attempts to wambulate to toilet or use bedside commode this session even with max encouragement M6 OT- IP Functional Cognition Start: 12/16/19 13:23 Freq: Status: Active Protocol: Document 12/17/19 11:50 PJM (Rec: 12/17/19 12:34 PJM [id number]) Cognitive Factors Limiting Selfcare Function Cognitive Ability Level of Alertness Drowsy Patient Orientation Name,Place Attention Span Ability Unable to Sustain Attention Ability to Follow Commands Able to Follow One Step Commands Cognitive Comments Cognitive Assessment Comments Pt drowsy and keeping eyes closed 90 % of the time. OT- Vision and Hearing OT- Vision Assessment Visual Acuity WFL M7 OT- IP Mobility and Balance Start: 12/16/19 13:23 Freq: Status: Active Protocol: Document 12/17/19 11:50 PJM (Rec: 12/17/19 12:34 [facility] [id number]) OT-Transfer Assessment Comments Mobility Comments Pt adamantly declined sit to stand with FWW OT- Gait Assessment Comments Gait Ability Comments Pt adamantly declined ambulation to bathroom. OT- Balance Assessment Sitting Balance and Reactions Static Sitting Balance Ability Fair M9 OT- IP Assessment and Plan Start: 12/16/19 13:23 Freq: Status: Active Protocol: Document 12/17/19 11:50 PJM (Rec: 12/17/19 12:34 [facility] [id number]) OT Summary Assessment and Plan Summary Progress Towards Goals Slow Progress due to Activity Tolerance,Slow Progress due to Cognition Assessment Summary Pt slightly more oriented as she was able to state place as hospital without cues. Pt remains very drowsy and unwilling to engage in grooming, eating or ambulation to bathroom stating I can't do it today, even with max encouragement. Goals Self-Feeding Goal Minimal Assistance Grooming Goal Standby Assistance Dressing Goal Standby Assistance Toileting Goal Standby Assistance Bathing Goal Standby Assistance Toilet Transfer Goal Standby Assistance Shower Transfer Goal Standby Assistance,Walk-in Shower,Shower Chair Patient/Caregiver Education Goal Caregiver Independent Assisting Patient OT-Other Goals Grooming to be done standing at sink. Days to Meet Goals 3 Frequency of Treatment Frequency Of Treatment Once a Day Treatment Plan OT Treatment Plan ADL Training,Functional Cognition Training,Functional Mobility,Patient/Family Education,Discharge Planning Discharge Recommendations OT Discharge Recommendations Home with 15/04 Assist Home Equipment Needs shower seat? Transportation Needs at Discharge Private Vehicle
--- NOTE | 2019-12-17 12:33 | PM.PN.1 ---
Subjective Subjective Date Patient Seen: 12/17/19 Time Patient Seen: 09:30 Interval history: Patient is sitting up in chair this morning after she was incontinent of urine. Initially during the visit she does not make eye contact and keeps her eyes closed. Later in the visit she is more responsive to questions. She is able to read the names of her nurse and aide from the bowl in board. Able to read Dr. Brown name and recognizes this as her doctor. Thinks that she is in [place] and that her father is in [place] both of which were in [place]. She thinks that today is Saturday and it is January. Does not know the year. Tells me that she is tired and has not been sleeping well. Has no complaints of pain. Is not nauseated and drinks insure easily when offered. Also drinks water when offered. Exam Vital Signs (past 8 hours): - 12/17/19 05:00 12/17/19 07:25 12/17/19 12:00 Temperature 97.1 F L 97.1 F L 96.7 F L Pulse Rate 79 85 76 Respiratory Rate 16 16 16 Blood Pressure 161/100 H 159/107 H 148/83 H Pulse Oximetry 97 100 100 Oxygen Delivery Method Room Air Oxygen Flow Rate 0 Narrative Exam Narrative: General: Well-developed, well-nourished, female, no acute distress. Heart: Regular rate and rhythm, no murmurs appreciated Lungs: Clear to auscultation bilaterally, no wheezes, rales or rhonchi Skin: 1 cm diameter area of thickening and redness on the medial inferior right breast, nontender, no discharge Abd: BS+, soft, nontender, nondistended, tympanic to percussion of the left upper quadrant, no rebound, no guarding, a parra could be incisions are clean and dry and intact Extremities: Warm and well perfused, no edema Neuro: Oriented x1 Objective Labs Result Diagrams: 12/17/19 04:58 12/17/19 04:58 Labs: Laboratory Results - last 24 hr 12/15/19 12/16/19 12/16/19 12:30 17:20 18:12 WBC 8.1 RBC 4.34 Hgb 14.6 Hct 41.3 MCV 95.3 MCH 33.7 MCHC 35.4 RDW 12.5 Plt Count 244 Neut % (Auto) 78.3 H Lymph % (Auto) 14.2 L [place] % (Auto) 5.7 Eos % (Auto) 1.0 L Baso % (Auto) 0.8 Neut # (Auto) 6300 Lymph # (Auto) 1100 [place] # (Auto) 500 Eos # (Auto) 100 Baso # (Auto) 100 Sodium Potassium Chloride Carbon Dioxide BUN Creatinine Estimated GFR BUN/Creatinine Ratio Glucose Serum Osmolality 271 L Calcium Magnesium Ferritin Total Bilirubin AST ALT Alkaline Phosphatase Total Protein Albumin Globulin Albumin/Globulin Ratio Ur Random Sodium 119 H 12/17/19 12/17/19 12/17/19 04:58 04:58 04:58 WBC 8.1 RBC 4.32 Hgb 14.5 Hct 41.0 MCV 94.8 MCH 33.5 MCHC 35.3 RDW 12.6 Plt Count 219 Neut % (Auto) 77.4 H Lymph % (Auto) 15.0 L [place] % (Auto) 5.8 Eos % (Auto) 1.0 L Baso % (Auto) 0.8 Neut # (Auto) 6300 Lymph # (Auto) 1200 [place] # (Auto) 500 Eos # (Auto) 100 Baso # (Auto) 100 Sodium 134 L Potassium 3.7 Chloride 100 Carbon Dioxide 22 BUN 10 Creatinine 0.50 L Estimated GFR > 60.0 BUN/Creatinine Ratio 20.0 Glucose 132 H Serum Osmolality Calcium 9.0 Magnesium Ferritin 430 H Total Bilirubin 1.0 AST 39 H ALT 46 H Alkaline Phosphatase 88 Total Protein 7.1 Albumin 3.9 Globulin 3.2 Albumin/Globulin Ratio 1.2 Ur Random Sodium 12/17/19 04:58 WBC RBC Hgb Hct MCV MCH MCHC RDW Plt Count Neut % (Auto) Lymph % (Auto) [place] % (Auto) Eos % (Auto) Baso % (Auto) Neut # (Auto) Lymph # (Auto) [place] # (Auto) Eos # (Auto) Baso # (Auto) Sodium Potassium Chloride Carbon Dioxide BUN Creatinine Estimated GFR BUN/Creatinine Ratio Glucose Serum Osmolality Calcium Magnesium 2.1 Ferritin Total Bilirubin AST ALT Alkaline Phosphatase Total Protein Albumin Globulin Albumin/Globulin Ratio Ur Random Sodium Assessment & Plan Assessment & Plan narrative: Acute delirium. Not infectious. Does not appear to be cerebrovascular. Does not appear to be due to underlying seizures. Morning cortisol is normal does not appear to be adrenal insufficiency although she does have low sodium and low potassium these are being replaced. Plasma renin and aldosterone are pending. Does not appear to be toxic as her acetaminophen salicylates alcohol level or normal and urine toxicology screen is normal. Does not appear to be endocrine although her vitamin B12 folic acid is okay her thyroid is a little bit out of alignment but not significantly and I do not think she is taking her thyroid replacement. This has been restarted. TSH was only at 9. Cannot discount underlying malignancy. Although there is no appreciable source except maybe breast skin lesion. Serum protein electrophoresis is pending at this point. She has a high protein level. Ferritin is also elevated an acute phase reactant. Cannot eliminate underlying psychiatric diagnosis as she relates she has been under a lot of stress. And could be mental health related will go ahead and start her on SSRI, sertraline. Plan by PCP was if initial laboratory tests are not improve over the next 24-48 hours. Patient will have to go back home with her father. She seems to have improved a little this morning so will continue with this plan. Will have her work with physical therapy and occupational therapy today. Severe malnutrition. Have placed additional consult today since she is taking PO again. Father will need guidance on appropriate foods at discharge. Hyponatremia. has improved. have stopped fluids. Hypokalemia. Continue with potassium replacement. Hypothyroidism patient's TSH is elevated. Continue levothyroxine. Hypertension. Seems to have responded to increased losartan and amlodipine. Disposition and plan awaiting laboratory testing back to see if there is anything further revealing is the cause of her acute delirium. Possible improvement with sertraline on board. Work with physical therapy occupational therapy. plan on discharge tomorrow and continue workup as outpatient. Quality VTE Deep Vein Thrombosis/Pulmonary Embolism Present on Admission: No
[2019-12-17 13:08] LABS: Osmolality Urine 464 mOsmol/kg (.)
--- NOTE | 2019-12-17 13:50 | DIET.PN ---
Dietary Progress Note Assessment: Ms. Alford is a 64-year-old female who was readmitted to the hospital after being discharged home on Saturday12/07/2019. Patient has had unintentional weight loss with nausea over the last 6 mo. Patient was admitted the hospital after concerns of ongoing dehydration and acute cholecystitis. I was able to get in touch with patients father Mitch Alford. He reports his daughter stopped eating after an oral procedure that did not go well. He also reports extreme N/V prior to her gallbladder removal. Her usual intake includes an icecream bar or fruit popsicle. He states he has a vitamix and is willing to make anything she can tolerate. HT: 175.26 cm WT: 88.9 kg UBW: 105 kg (06/11) %change: 15.3% BMI: 28.9 Labs: Na: 131 --> 134 K: 3.3 Cr: 0.41 --> 0.5 Gluc: 140 ,123 AST: 39 ALT: 46 MNA: 10 Cory: 19 Nutrition Diagnosis: Severe chronic PCM r/t GI complications aeb energy intake <50% EER > 1mo per father report, GI symptoms (N/V, anorexia) >2 weeks, weight loss >10% in 6 mo (10.4% in 1 mo). Interventions: 1. Discussed high lauren/high pro nutrition therapy with father. Discussed ways to increase protein including oral nutrition supplements (ensure/galicia), high pro fruit smoothies w/ pro supp powder. (handouts will be provided at discharge) 2. Discussed soft/easy chew foods. Provided list of tips for ensuring foods are safe for easy swallow. 3. Discussed importance of choosing healthy fats and avoiding fried, greasy, spicy foods as well as foods with strong odors. 4. Pt father very thankful for dietary advice, will provide pt with alternating ensure and high pro fruit smoothies to assess tolerance before discharge. 5. Working closely with dietary staff to assess pt likes/dislikes. Diet Order: CCD (soft) EER: 2000 lauren @30cal/kg IBW; 85-100 g pro @ 1.3-1.5g/kg Monitoring/Evaluations: PO's, weight, ONS acceptance, additional education with family prior to discharge.
--- NOTE | 2019-12-17 14:11 | PT.IPTN ---
Current Diagnoses Dehydration (12/17/19) Hypo-osmolality and hyponatremia (12/17/19) Nausea (12/17/19) Altered mental status, unspecified (12/17/19) Weakness (12/17/19) Physical Therapy Treatment Note M2 PT-IP Current Condition Start: 12/16/19 08:51 Freq: NEEDED Status: Active Protocol: Document 12/16/19 10:45 HH (Rec: 12/16/19 13:42 HH [id number]) Physical Therapy Current Condition Current Condition Evaluation Date 12/16/19 Treatment Diagnosis Acute AMS, unexplainted weight loss, generalized weakness Onset Date 3 days ago Precautions Abdominal Surgery Precautions Log Roll,Lifting Restrictions, Gait Belt above Incisional Area Weight Bearing Status Weight Bearing Status Full Weight Bearing M3 PT-IP Subjective Start: 12/16/19 08:51 Freq: NEEDED Status: Active Protocol: Document 12/17/19 14:08 AB (Rec: 12/17/19 14:11 AB [id number]) Subjective Physical Therapy Visit Type Type Patient Refusal Notes attempted PT. pt requiring increase motivation to participate. attempted sit to stand x 3-4 but pt will initially follow directions but when asked to push up to stand will lean back on the chair again and states that she needs a few minutes. spent ~ 20 min to encourage and instruct pt but pt did not complete tasks as instructed. NAC in room to assist. will check on pt again.
[2019-12-17 14:36] LABS: Alpha-1-Globulin 0.3 g/dL (0.0-0.4); Alpha-2-Globulin 0.9 g/dL (0.4-1.0); Gamma Globulin 1.2 g/dL (0.4-1.8); Globulin Total 3.6 g/dL (2.2-3.9); Protein, Total 7.6 g/dL (6.0-8.5)
--- NOTE | 2019-12-17 16:08 | PT.IPTN ---
Current Diagnoses Dehydration (12/17/19) Hypo-osmolality and hyponatremia (12/17/19) Nausea (12/17/19) Altered mental status, unspecified (12/17/19) Weakness (12/17/19) Physical Therapy Treatment Note M2 PT-IP Current Condition Start: 12/16/19 08:51 Freq: NEEDED Status: Active Protocol: Document 12/16/19 10:45 HH (Rec: 12/16/19 13:42 HH [id number]) Physical Therapy Current Condition Current Condition Evaluation Date 12/16/19 Treatment Diagnosis Acute AMS, unexplainted weight loss, generalized weakness Onset Date 3 days ago Precautions Abdominal Surgery Precautions Log Roll,Lifting Restrictions, Gait Belt above Incisional Area Weight Bearing Status Weight Bearing Status Full Weight Bearing M3 PT-IP Subjective Start: 12/16/19 08:51 Freq: NEEDED Status: Active Protocol: Document 12/17/19 16:08 AB (Rec: 12/17/19 17:13 AB [id number]) Subjective Physical Therapy Visit Type Type Treatment Note Visit Start Time 16:08 Visit Stop Time 16:45 Total Visit Minutes 37 Number of NC MANAGER Visits 0 Physical Therapy Visit Comments Patient Comments requires increase motivation to participate M4 PT-IP Mobility and Gait Start: 12/16/19 08:51 Freq: NEEDED Status: Active Protocol: Document 12/17/19 16:08 AB (Rec: 12/17/19 17:13 AB [id number]) PT-Bed Mobility Assessment Supine to Sit Supine to Sit Maximum Assistance,1 Person Assistance Sit to Supine Sit to Supine Maximum Assistance,1 Person Assistance,2 Person Assistance PT-Transfer Assessment Sit to and From Stand Sit to and from Stand Moderate Assistance,Maximum Assistance,2 Person Assistance ,Use of Upper Extremities Equipment Transfer Assistive Device Gait Belt,Front Wheeled Walker Orthotic/Prosthetic Devices or Brace: No Transfers Transfer Destination Bed,Bedside Commode Transfer Technique using FWW Transfer Ability Level of Assist Maximum Assistance,1 Person Assistance,2 Person Assistance ,Use of Upper Extremities Comments Mobility Comments Pt required encouragement to participate. completed supine to sit max A and max cues. pt was able to sit on EOB CGA. completed sit to stand x 2 attempts and max cues mod A and ambulated towards the toilet ~ 12 ft using FWW max A x 1-2 and max cues. pt requires step by step instructions and has increase lateral trunk leaning to the L requiring assist with weight shifting and midline repositioning. Pt unable to ambulate all the way to the toilet and nurse positioned bedside commode close the the pt. Required several attempts to stand up from the bedside commode as pt has increase resistance and expressed fear of falling. required max A x2 -3 for sit to stand and ambulated back towards the bed using FWW ~ 5 ft max A x 2 and max cues. completed sit to supine max A x 2 and max cues. positioned pt in bed. call light and table placed within reach. Gait Assessment Gait Gait Assistance Required: Maximum Assistance,1 Person Assist,2 Person Assist Distance (Feet) 12 Able to Maintain Weight Bearing Status Yes During Gait Assistive Devices Assistive Device Gait Belt,Front Wheeled Walker Orthotic/Prosthetic Devices or Brace: No Gait Deviations General Gait Pattern Antalgic,Decreased Stride Length,Decreased Feet Clearance,Lateral Trunk Lean, Step-to Gait Factors Limiting Gait Function Factors Limiting Gait Function Decreased Activity Tolerance, Decreased Strength,Difficulty Following Directions,Poor Balance,Poor Safety Awareness Comments Gait Comments pls refer to mobility section for details M5 PT-IP Objective Assessments Start: 12/16/19 08:51 Freq: NEEDED Status: Active Protocol: Document 12/16/19 10:45 HH (Rec: 12/16/19 13:42 [id number]) Orientation Orientation/Cognition Level of Alertness Confusional State Orientation Name Language Function Ability No Deficits Noted Safety Awareness Decreased Safety Awareness Comments Pt is delirius and but able to follow simple commands. She was only able to recall her name and parents' names. Gross Range of Motion Upper Extremity ROM Assessment Within Functional Limits Lower Extremity ROM Assessment Within Functional Limits Strength Upper Extremity Strength Assessment Within Functional Limits Lower Extremity Strength Assessment Within Functional Limits M6 PT-IP Treatment Start: 12/16/19 08:51 Freq: NEEDED Status: Active Protocol: Document 12/16/19 10:45 HH (Rec: 12/16/19 13:42 [email or web address]) Physical Therapy Treatment Education Education Provided Safety M7 PT-IP Assessment and Plan Start: 12/16/19 08:51 Freq: NEEDED Status: Active Protocol: Document 12/17/19 16:08 AB (Rec: 12/17/19 17:13 AB [id number]) PT Summary Assessment and Plan Potential Rehabilitation Potential Fair Summary Impairments Pain,ROM,Strength,Balance, Coordination,Sensation,Tone, Cognition,Bed Mobility, Transfers,Gait,Activity Tolerance Progress Towards Goals Slow Progress - Other Assessment Summary pt requires max A x 1-3 with mobility. pt with cognitive issues and has expressed fear of falling affecting mobility and participation. pt requires step by step cues with all tasks and increase encouragement to participate. pt at this time will require SNF rehab to improve mobility independence prior to d/c home . Goals Bed Mobility Goal Standby Assistance Transfer Goal Standby Assistance,Front Wheeled Walker Gait Goal Standby Assistance,Front Wheel Walker Gait Distance 200 Other Goals 3 STEPs with B rails for front entrance 3 STEPs with L rail for garage entrance Days to Meet Goals 5 Frequency of Treatment Frequency Of Treatment Once a Day Treatment Plan Physical Therapy Treatment Plan Bed Mobility Training,Transfer Training,Gait Training, Therapeutic Exercise,Balance Retraining,Discharge Planning Other Recommendations and Next Treatment mobility as haroldo without AD Focus stair climbing if possible Recommendations To Nursing Amount of Assist Needed Power Sit-Stand Discharge Recommendations PT Discharge Recommendations SNF Rehab Equipment Needed for Home Before FWW if pt goes home Discharge Transportation Needs at Discharge Private Vehicle,Wheelchair/ Cabulance
[2019-12-17] MEDS: TRAZODONE 100 MG TABLET PO (20:03)
[2019-12-17] MEDS: SERTRALINE 50 MG TABLET PO (20:03)
[2019-12-18] VITALS (7 sets, daily range): BP systolic 152–169; BP diastolic 60–87; PULSE 57–71; RESP 14–18; TEMP 35.7–36.5; O2SAT 97–100
--- NOTE | 2019-12-18 01:14 | PC.NURSE ---
Shift note: Alert to name only, states birthday is some time in May, believes she's in her parents house, unable to state where parents live, unable to state the year. Will follow simple commands. Is in view room for safety. Denies chest pain and SOB. Bowel tones active and tympanic, patient says I suppose so to if she is passing flatus. Patient has had both incontinence and retention, MD aware. Not on IV fluids and needs reminders to drink. Wearing a brief for incontinence. Evening shift reports patient is a 2PMax to ambulate, turns self in bed frequently. High fall risk d/t confusion, unable to call with call light. Bed alarm on and functioning.
[2019-12-18] MEDS: LEVOTHYROXINE 100 MCG TABLET 200 MCG PO (05:49)
[2019-12-18 06:41] LABS: Add Manual Diff / Slide Review NO; Basophils Absolute Auto 100 /uL (0-100); Basophils Percent Auto 0.9 % (0-2); Eosinophils Absolute Auto 100 /uL (0-450); Eosinophils Percent Auto 1.3 % (2-4); Hematocrit 41.3 % (36-46); Hemoglobin 14.4 g/dL (12.0-16.0); Lymphocytes Absolute Auto 1400 /uL (1100-4500); Lymphocytes Percent Auto 15.3 % (25-40); Mean Corpuscular Hemoglobin 33.4 PG (26-34); Mean Corpuscular Volume 95.5 fL (80-100); Monocytes Absolute Auto 500 /uL (0-900); Monocytes Percent Auto 5.4 % (3-14); Neutrophils Absolute Auto 7000 /uL (1500-7000); Neutrophils Percent Auto 77.1 % (50-75); Platelet Count 221 X10^3/uL (150-400); Red Blood Cell Count 4.32 X10^6/uL (4.0-5.2); Red Cell Distribution Width 12.7 % (11.6-14.8)
[2019-12-18 06:44] LABS: Alanine Aminotransferase 45 IU/L (<35); Albumin 4.1 g/dL (3.5-5.0); Albumin Globulin Ratio 1.2 (1.0-2.8); Alkaline Phosphatase 94 U/L (38-126); Aspartate Aminotransferase 35 IU/L (14-36); BUN Creatinine Ratio 22.4 (6-22); Blood Urea Nitrogen 13 mg/dL (7-17); Calcium 9.4 mg/dL (8.4-10.2); Carbon Dioxide 25 mmol/L (22-32); Chloride 98 mmol/L (98-107); Estimated Glomerular Filt Rate > 60.0 mL/min (>60); Globulin 3.3 g/dL (1.7-4.1); Glucose 136 mg/dL (80-110); HEMOLYSIS < 15 (0-50); Potassium 3.8 mmol/L (3.4-5.1); Sodium 131 mmol/L (137-145); Total Protein 7.4 g/dL (6.3-8.2)
[2019-12-18] MEDS: POTASSIUM CHLORIDE 20 MEQ TAB PO ×2 (09:01→16:44)
[2019-12-18] MEDS: AMLODIPINE 5 MG TABLET 10 MG PO (09:02)
[2019-12-18] MEDS: ENOXAPARIN 40 MG/0.4 ML SYRINGE SUBCUT (09:02)
[2019-12-18] MEDS: LOSARTAN 50 MG TABLET PO ×2 (09:03→20:44)
[2019-12-18] MEDS: SODIUM CHLORIDE 0.9% FLUSH 10 ML IV (09:04)
--- NOTE | 2019-12-18 10:27 | PC.NURSE ---
Assess- Patient denies pain, she is refusing to eat, will take a couple of drinks of chocolate ensure, and did take a bite of chocolate pudding with her potassium. She is confused and does not know where she is. Patient has lap sites that are healing, she was just incontinent of a large amount of rekha colored urine. She sat up to the edge of the bed, and then refused to stand up to use the commode because she was affraid she would fall. It does take about 3 people to get her out of bed to stand and use the commode. She has not had a bowel movement in the last two days but she is also not eating well. She has grown something from her urine culture, will phone and let know as soon as we get a current weight on her.
--- NOTE | 2019-12-18 10:37 | DI.MRI.S_ITS ---
PROCEDURE: MR HEAD/BRAIN WO/W CON INDICATIONS: delirium TECHNIQUE: Noncontrast axial T1 spin echo, axial T2 fast spin echo, sagittal and axial FLAIR, coronal T2 fast spin echo, axial gradient echo, axial diffusion and ADC through the brain. After the administration of contrast, axial and coronal T1 spin echo with fat saturation through the brain. COMPARISON: [facility], MR, MR STROKE, 12/15/2019, 14:29. [facility], CT, CT HEAD/BRAIN WO CON, 12/15/2019, 12:54. FINDINGS: Image quality: This examination is limited by involuntary motion artifact. CSF spaces: Basal cisterns are patent. No extra-axial fluid collections. Ventricles are normal in size and shape. Brain: No midline shift. No intracranial bleeds or masses. No abnormal intracranial enhancement. There is cerebral volume loss for age. There is periventricular white matter chronic small vessel ischemic change. The brainstem appears normal. Diffusion-weighted images demonstrate no acute ischemic insults. No chronic ischemic insults. Normal intravascular flow voids are present. Skull and face: Calvarial marrow is normal in signal. Orbits appear normal. Sinuses: Sinuses and mastoids appear clear. IMPRESSION: No findings of acute or subacute infarction can be seen. Brain parenchymal volume loss. No masses or abnormal enhancement are seen. Motion limited study. Dictated by: Bashir Sung M.D. on 12/18/2019 at 12:20 Approved by: Bashir Sung M.D. on 12/18/2019 at 12:22
--- NOTE | 2019-12-18 10:45 | P.PN_ITS ---
Subjective Subjective Date Patient Seen: 12/18/19 Time Patient Seen: 08:15 Interval history: Patient is propped up in bed apparently asleep. Awakes easily. Does not completely answer questions like she did yesterday. Closes her eyes between questions. Denies any pain including headache. Exam Vital Signs (past 8 hours): - 12/18/19 05:00 12/18/19 07:43 Temperature 97.7 F 96.3 F L Pulse Rate 60 57 L Respiratory Rate 17 16 Blood Pressure 156/83 H 159/87 H Pulse Oximetry 99 98 Oxygen Delivery Method Room Air Oxygen Flow Rate 0 Narrative Exam Narrative: General: Well-developed, well-nourished, female, no acute distress, smiles at me, doesn't remember who I am. Heart: Regular rate and rhythm, no murmurs appreciated Lungs: Clear to auscultation bilaterally, no wheezes, rales or rhonchi Skin: 1 cm diameter area of thickening and redness on the medial inferior right breast, nontender, no discharge Abd: BS+, soft, nontender, nondistended, tympanic to percussion of the left upper quadrant, no rebound, no guarding, a parra could be incisions are clean and dry and intact Extremities: Warm and well perfused, no edema Neuro: Oriented x1 Objective Labs Result Diagrams: 12/18/19 06:09 12/18/19 06:09 Labs: Laboratory Results - last 24 hr 12/15/19 12/16/19 12/17/19 12:30 18:11 04:58 WBC RBC Hgb Hct MCV MCH MCHC RDW Plt Count Neut % (Auto) Lymph % (Auto) [place] % (Auto) Eos % (Auto) Baso % (Auto) Neut # (Auto) Lymph # (Auto) [place] # (Auto) Eos # (Auto) Baso # (Auto) Sodium Potassium Chloride Carbon Dioxide BUN Creatinine Estimated GFR BUN/Creatinine Ratio Glucose Calcium Ferritin 430 H Total Bilirubin AST ALT Alkaline Phosphatase Total Protein 7.6 Albumin 4.0 Globulin Albumin/Globulin Ratio 1.1 Jvofw-1-Vvdbstkxj 0.3 Vngkh-8-Ztxdwpshy 0.9 Beta Globulins 1.2 Gamma Globulins 1.2 Gamma Glob/Tot Protein 3.6 M-Noah Not observed Urine Osmolality 464 Ref Lab Notation Comment 12/18/19 12/18/19 06:09 06:09 WBC 9.0 RBC 4.32 Hgb 14.4 Hct 41.3 MCV 95.5 MCH 33.4 MCHC 35.0 RDW 12.7 Plt Count 221 Neut % (Auto) 77.1 H Lymph % (Auto) 15.3 L [place] % (Auto) 5.4 Eos % (Auto) 1.3 L Baso % (Auto) 0.9 Neut # (Auto) 7000 Lymph # (Auto) 1400 [place] # (Auto) 500 Eos # (Auto) 100 Baso # (Auto) 100 Sodium 131 L Potassium 3.8 Chloride 98 Carbon Dioxide 25 BUN 13 Creatinine 0.58 Estimated GFR > 60.0 BUN/Creatinine Ratio 22.4 H Glucose 136 H Calcium 9.4 Ferritin Total Bilirubin 1.0 AST 35 ALT 45 H Alkaline Phosphatase 94 Total Protein 7.4 Albumin 4.1 Globulin 3.3 Albumin/Globulin Ratio 1.2 Nvgtn-0-Vfjldkpdo Bgeme-0-Xitkcwksf Beta Globulins Gamma Globulins Gamma Glob/Tot Protein M-Noah Urine Osmolality Ref Lab Notation Assessment & Plan Assessment & Plan narrative: Acute delirium. 1. Did not appear to be infectious. No fever, leukocytosis, cough. Now growing gram negative bacilli in cathed urine specimen. 2. Did not appear to be cerebrovascular. However will repeat MRI today. 3. Does not appear to be due to underlying seizures. 4. Morning cortisol is normal does not appear to be cortisol adrenal insufficiency. 5. Hypoaldosterone? Does have high urine sodium. Plasma renin and aldosterone are pending. 6. Does not appear to be toxic as her acetaminophen salicylates alcohol level or normal and urine toxicology screen is normal. 7. Endocrine. Increased thyroid dose to correlate with 120 mg armour thyroid. Levothyroxine 200 mcg. Vitamin B12 folic acid are okay. 8. Cannot discount underlying malignancy. Although there is no appreciable source except maybe breast skin lesion, however this looks more like healing abscess. Serum protein electrophoresis is normal. 9. She has a high protein level. Ferritin is also elevated an acute phase reactant. 10. Cannot eliminate underlying psychiatric diagnosis as she relates she has been under a lot of stress. And could be mental health related. Started on sertraline 50 mg. 11. Sleep deprivation. restarted trazadone and appears that she slept well last night. Avoid sedating and psychotropic medications. Severe malnutrition. Have placed nutritional consult today since she is taking PO again. Father will need guidance on appropriate foods at discharge. Hyponatremia. had improved. stopped fluids so is 131 today. Hypokalemia. Continue with potassium replacement. Hypothyroidism patient's TSH is elevated. Continue levothyroxine. Hypertension. Seems to have responded to increased losartan and amlodipine. Weakness. Needs direction and support to transfer and walk. Urinary tract infection. Will treat with ceftriaxone for gram negative bacilli. Patient continues to be delirious and weak, now with infection and unable to be cared for at home. Will see what MRI shows today and treat infection. Encourage patient to eat and Work with physical therapy occupational therapy. Anticipate that she will require another 48 hours of care while we treat the infection and her delirium clears. Dr. Pritchard to follow over the weekend. Quality VTE Deep Vein Thrombosis/Pulmonary Embolism Present on Admission: No
--- NOTE | 2019-12-18 11:49 | PT.IPTN ---
Current Diagnoses Dehydration (12/17/19) Hypo-osmolality and hyponatremia (12/17/19) Nausea (12/17/19) Altered mental status, unspecified (12/17/19) Weakness (12/17/19) Physical Therapy Treatment Note M2 PT-IP Current Condition Start: 12/16/19 08:51 Freq: NEEDED Status: Active Protocol: Document 12/16/19 10:45 HH (Rec: 12/16/19 13:42 HH [id number]) Physical Therapy Current Condition Current Condition Evaluation Date 12/16/19 Treatment Diagnosis Acute AMS, unexplainted weight loss, generalized weakness Onset Date 3 days ago Precautions Abdominal Surgery Precautions Log Roll,Lifting Restrictions, Gait Belt above Incisional Area Weight Bearing Status Weight Bearing Status Full Weight Bearing M3 PT-IP Subjective Start: 12/16/19 08:51 Freq: NEEDED Status: Active Protocol: Document 12/18/19 11:49 AB (Rec: 12/18/19 13:36 AB [id number]) Subjective Physical Therapy Visit Type Type Treatment Note Visit Start Time 11:49 Visit Stop Time 12:11 Total Visit Minutes 22 Number of DATA ENTRY ASSOCIATE Visits 0 M4 PT-IP Mobility and Gait Start: 12/16/19 08:51 Freq: NEEDED Status: Active Protocol: Document 12/18/19 11:49 AB (Rec: 12/18/19 13:36 AB [id number]) PT-Bed Mobility Assessment Supine to Sit Supine to Sit Maximum Assistance,2 Person Assistance,Head of Bed Elevated Sit to Supine Sit to Supine Minimal Assistance,1 Person Assistance PT-Transfer Assessment Comments Mobility Comments pt requires encouragement to participate. pt completed supine to sit max a x 2 and max cues. requires increase time to motivate and instruct pt. pt was able to sit on EOB SBA. attempted sit to stand but pt resistive and unable to complete task. Dr. Lopez came in to see pt and stated that pt might have enough for as of now. assisted pt back to bed and pt completed sit to supine min A with LE elevation. positioned pt in bed. call light and table placed within reach. M5 PT-IP Objective Assessments Start: 12/16/19 08:51 Freq: NEEDED Status: Active Protocol: Document 12/16/19 10:45 HH (Rec: 12/16/19 13:42 HH [id number]) Orientation Orientation/Cognition Level of Alertness Confusional State Orientation Name Language Function Ability No Deficits Noted Safety Awareness Decreased Safety Awareness Comments Pt is delirius and but able to follow simple commands. She was only able to recall her name and parents' names. Gross Range of Motion Upper Extremity ROM Assessment Within Functional Limits Lower Extremity ROM Assessment Within Functional Limits Strength Upper Extremity Strength Assessment Within Functional Limits Lower Extremity Strength Assessment Within Functional Limits M6 PT-IP Treatment Start: 12/16/19 08:51 Freq: NEEDED Status: Active Protocol: Document 12/18/19 11:49 AB (Rec: 12/18/19 13:36 AB [id number]) Physical Therapy Treatment Education Education Provided Safety M7 PT-IP Assessment and Plan Start: 12/16/19 08:51 Freq: NEEDED Status: Active Protocol: Document 12/18/19 11:49 AB (Rec: 12/18/19 13:36 AB [id number]) PT Summary Assessment and Plan Potential Rehabilitation Potential Fair Summary Impairments Pain,ROM,Strength,Balance, Coordination,Sensation,Tone, Cognition,Bed Mobility, Transfers,Gait,Activity Tolerance Progress Towards Goals Slow Progress - Other Assessment Summary pt continues to require increase motivation to participate and unable to tolerate much today. pt will require SNF rehab at this time . Goals Bed Mobility Goal Standby Assistance Transfer Goal Standby Assistance,Front Wheeled Walker Gait Goal Standby Assistance,Front Wheel Walker Gait Distance 200 Other Goals 3 STEPs with B rails for front entrance 3 STEPs with L rail for garage entrance Days to Meet Goals 5 Frequency of Treatment Frequency Of Treatment Once a Day Treatment Plan Physical Therapy Treatment Plan Bed Mobility Training,Transfer Training,Gait Training, Therapeutic Exercise,Balance Retraining,Discharge Planning Other Recommendations and Next Treatment mobility as haroldo without AD Focus stair climbing if possible Recommendations To Nursing Amount of Assist Needed Power Sit-Stand Discharge Recommendations PT Discharge Recommendations SNF Rehab Equipment Needed for Home Before FWW if pt goes home Discharge Transportation Needs at Discharge Private Vehicle,Wheelchair/ Cabulance
--- NOTE | 2019-12-18 11:56 | OT.IP.TRT ---
Current Diagnoses Dehydration (12/17/19) Hypo-osmolality and hyponatremia (12/17/19) Nausea (12/17/19) Altered mental status, unspecified (12/17/19) Weakness (12/17/19) Occupational Therapy Treatment Note M2 OT-IP Current Condition Start: 12/16/19 13:23 Freq: Status: Active Protocol: Document 12/16/19 11:50 PJM (Rec: 12/16/19 13:57 PJM [id number]) Occupational Therapy Current Condition Current Condition Evaluation Date 12/16/19 Treatment Diagnosis decreased cognition, act tolerance, self care with dx unknown Diagnosis Onset Date 12/15/19 Post Operative Precautions Other Precautions fall risk, bed/chair alarm, confusion M3 OT- IP Subjective and Pain Start: 12/16/19 13:23 Freq: Status: Active Protocol: Document 12/18/19 12:37 CCC (Rec: 12/18/19 13:00 CCC [id number]) OT- Subjective Occupational Therapy Visit Type Type Treatment Note Visit Start Time 11:56 Visit Stop Time 12:12 Total Visit Minutes 16 Occupational Therapy Visit Comments Patient Comments Pt states very tired and not wanting to try to stand or transfer to the recliner. PT already starting to work with pt when OT came in. Physician came in at the end of the session. Patient/Caregiver Goals to go home OT Pain Assessment Pain When Pain Assessed At Rest Pain Present Pain Present Denied Pain M4 OT- IP ADL's Start: 12/16/19 13:23 Freq: Status: Active Protocol: Document 12/17/19 11:50 PJM (Rec: 12/17/19 12:34 PJM [id number]) OT [id number] Comments OT Self-Feeding Comments pt has poor appetite with poor intake; dozes off duirng meals OT ADL-Grooming General Evaluation Grooming Ability Standby Assistance,Minimal Assistance Areas Needing Assistance Combing/Brushing Hair,Face Washing Comments OT Grooming Comments SBA face washing, MIN assist for thoroughness with hair brushing OT ADL-Oral Care Comments Oral Care Comments pt declined this session OT ADL-Toileting Comments OT Toileting Comments pt adamantly declined attempts to ambulate to toilet or use bedside commode this session even with max encouragement M5 OT- IP IADL's Start: 12/16/19 13:23 Freq: Status: Active Protocol: Document 12/16/19 11:50 PJM (Rec: 12/16/19 13:57 PJM [id number]) OT-Instrumental Activities of Daily Living Deficits IADL Deficits Identified Deficits Home Safety Awareness Awareness of Need for Assistance at Home Decreased Awareness Ability to Problem Solve Emergency Unable to Problem Solve Situations Medication Management Medication Management Caregiver Administers Medication Management Comments pt needs total assist at present due to confusion and short term memory deficits Money Management Money Management Caregiver Provides Assistance Money Management Comments pt needs total assist at present due to confusion and short term memory deficits Meal Preparation Meal Preparation Caregiver Provides Assist Meal Preparation Comments pt needs total assist at present due to confusion and short term memory deficits Airplane Captain Airplane Captain Caregiver Provides Assist Airplane Captain Comments pt needs total assist at present due to confusion and short term memory deficits Driving Driving Concerns Identified Regarding Safety Driving Comments pt needs total assist at present due to confusion and short term memory deficits M6 OT- IP Functional Cognition Start: 12/16/19 13:23 Freq: Status: Active Protocol: Document 12/17/19 11:50 PJM (Rec: 12/17/19 12:34 PJM [id number]) Cognitive Factors Limiting Selfcare Function Cognitive Ability Level of Alertness Drowsy Patient Orientation Name,Place Attention Span Ability Unable to Sustain Attention Ability to Follow Commands Able to Follow One Step Commands Cognitive Comments Cognitive Assessment Comments Pt drowsy and keeping eyes closed 90 % of the time. OT- Vision and Hearing OT- Vision Assessment Visual Acuity WFL M7 OT- IP Mobility and Balance Start: 12/16/19 13:23 Freq: Status: Active Protocol: Document 12/18/19 12:37 [facility] (Rec: 12/18/19 13:00 [facility] [id number]) OT- Bed Mobility Assessment Supine to Sit Supine to Sit Assist Maximum Assistance,2 Person Assistance Sit to Supine Sit to Supine Assist Minimal Assistance,1 Person Assistance OT-Transfer Assessment Comments Mobility Comments Pt adamantly declined sit to stand with FWW OT- Balance Assessment Sitting Balance and Reactions Static Sitting Balance Ability Poor M8 OT- IP Objective Assessments Start: 12/16/19 13:23 Freq: Status: Active Protocol: Document 12/16/19 11:50 PJM (Rec: 12/16/19 13:57 PJM [id number]) OT Gross Range of Motion Upper Extremity Range of Motion Assessment Within Functional Limits OT Strength Upper Extremity Strength Assessment Within Functional Limits Hand Nail Setter Strength Hand Dominance Right OT- Coordination Assessment Comments Coordination Comments BUE WFL OT-Muscle Tone Assessment Muscle Tone WNL Yes OT Sensation Assessment Comments Summary Comments pt detects lt touch in BUE's Edema Edema Absent M9 OT- IP Assessment and Plan Start: 12/16/19 13:23 Freq: Status: Active Protocol: Document 12/18/19 12:37 [facility] (Rec: 12/18/19 13:00 [facility] [id number]) OT Summary Assessment and Plan Potential Rehabilitation Potential Fair Analytic Complexity at Evaluation Low Summary OT Impairments Functional Cognition, Functional Mobility,Dressing, Toileting,Bathing,Toilet Transfers,Shower Transfers, Activity Tolerance Progress Towards Goals Slow Progress due to Medical Issues,Slow Progress due to Activity Tolerance,Slow Progress due to Cognition Assessment Summary Pt today only able to tolerate sitting on the edge of the bed but needing MODA to sit. Pt continues to states , I can not do this. Pending medical status and progress discharge to skilled rehab. Goals Self-Feeding Goal Minimal Assistance Grooming Goal Standby Assistance Dressing Goal Standby Assistance Toileting Goal Standby Assistance Bathing Goal Standby Assistance Toilet Transfer Goal Standby Assistance Shower Transfer Goal Standby Assistance,Walk-in Shower,Shower Chair Patient/Caregiver Education Goal Caregiver Independent Assisting Patient Days to Meet Goals 15 Frequency of Treatment Frequency Of Treatment Once a Day Treatment Plan OT Treatment Plan ADL Training,Functional Cognition Training,Functional Mobility,Patient/Family Education,Discharge Planning Other Treatment Recommendations and Next Stand at sink with FWW from Treatment Focus the recliner MODA X 2. Discharge Recommendations OT Discharge Recommendations SNF Rehab Home Equipment Needs shower seat Transportation Needs at Discharge Private Vehicle
--- NOTE | 2019-12-18 12:01 | P.CONS_ITS ---
History of Present Illness Consult details Date Patient Seen: 12/18/19 Time Patient Seen: 11:00 Chief complaint: Altered mental status Reason for consult: AMS Requesting provider: Stacie Lopez Narrative: UPDATED HOSPITAL COURSE: - Pt Continues to be confused, disoriented at times. Not combative per nursing but unable to independently follow commands, staff needing to be very clear & directive when working with her. received trazodone overnight, which is home medication for her. - Sertraline started during this hospital stay, per Dr. Lopez she has known psychiatric history of at least depression and insomnia, history of taking bupropion - preliminary results now showing urine culture with Gram-negative bacilli - poor p.o. intake of food and water INTERVIEW: - introduced myself to patient was lying in bed, explained that I am Dr. Garsia in part of her care team today. She nodded understanding and says thinks, keeps eyes closed. asked if there is anything else I can help her with or do this morning and she states no. Did not proceed with further interview this morning, I can check back in this afternoon Meds Home Medications and Allergies Home Medications Medication Instructions Recorded Confirmed Type Glucose: Home Monitoring Kit 1 kit MISCELLANEOUS DIRECTED 09/05/18 12/04/19 History Test Strips - Freestyle 1 item MISCELLANEOUS TID 09/05/18 12/04/19 History naproxen sodium [Aleve] 1 dose PO PRN PRN 09/05/18 12/03/19 History trazodone 100 mg tablet See Rx Instructions .ROUTE 10/19/19 12/03/19 Rx .COMPLEX #30 tablet losartan 50 mg tablet 50 mg PO DAILY #90 tab 11/10/19 12/17/19 Rx amlodipine 5 mg tablet 5 mg PO DAILY #30 tab 11/17/19 12/17/19 Rx ondansetron 4 mg PO Q6H PRN #20 tab 11/21/19 12/17/19 Rx thyroid (pork) [[place] Thyroid] 120 mg PO DAILY 12/03/19 12/17/19 History hydrocodone-acetaminophen [[place]] 1 tab PO Q4H PRN #14 tab 12/07/19 12/17/19 Rx metoclopramide HCl [Reglan] 10 mg PO QACHS #10 tab 12/07/19 12/17/19 Rx Allergies Allergy/AdvReac Type Severity Reaction Status Date / Time streptomycin [STREPTOMYCIN] Allergy Severe Throat Verified 12/03/19 15:10 swelled up Review of Systems Review of Systems ROS: Yes unobtainable due to mental condition Exam Vital Signs (past 8 hours): - 12/18/19 05:00 12/18/19 07:43 Temperature 97.7 F 96.3 F L Pulse Rate 60 57 L Respiratory Rate 17 16 Blood Pressure 156/83 H 159/87 H Pulse Oximetry 99 98 Oxygen Delivery Method Room Air Oxygen Flow Rate 0 Narrative Exam Narrative: Appearance: unkempt, wearing hospital garb Behavior: lying in bed, eyes closed Gait: not observed Speech: soft volume in one-word answers with this provider Mood: unable to assess due to mental status Affect: drowsy Thought Process: unable to assess due to current mental status Thought Content: unable to assess due to current mental status Attention: poor Orientation: not formally tested, not oriented to place or time per serial evals Memory: unable to assess due to current mental status Insight: limited Judgment: limited Objective Labs Result Diagrams: 12/18/19 06:09 12/18/19 06:09 Labs: Laboratory Results - last 24 hr 12/15/19 12/16/19 12/18/19 12:30 18:11 06:09 WBC 9.0 RBC 4.32 Hgb 14.4 Hct 41.3 MCV 95.5 MCH 33.4 MCHC 35.0 RDW 12.7 Plt Count 221 Neut % (Auto) 77.1 H Lymph % (Auto) 15.3 L [place] % (Auto) 5.4 Eos % (Auto) 1.3 L Baso % (Auto) 0.9 Neut # (Auto) 7000 Lymph # (Auto) 1400 [place] # (Auto) 500 Eos # (Auto) 100 Baso # (Auto) 100 Sodium Potassium Chloride Carbon Dioxide BUN Creatinine Estimated GFR BUN/Creatinine Ratio Glucose Calcium Total Bilirubin AST ALT Alkaline Phosphatase Total Protein 7.6 Albumin 4.0 Globulin Albumin/Globulin Ratio 1.1 Fngai-4-Qaxvtacfh 0.3 Cmpoz-7-Uiabgotuo 0.9 Beta Globulins 1.2 Gamma Globulins 1.2 Gamma Glob/Tot Protein 3.6 M-Noah Not observed Urine Osmolality 464 Ref Lab Notation Comment 12/18/19 06:09 WBC RBC Hgb Hct MCV MCH MCHC RDW Plt Count Neut % (Auto) Lymph % (Auto) [place] % (Auto) Eos % (Auto) Baso % (Auto) Neut # (Auto) Lymph # (Auto) [place] # (Auto) Eos # (Auto) Baso # (Auto) Sodium 131 L Potassium 3.8 Chloride 98 Carbon Dioxide 25 BUN 13 Creatinine 0.58 Estimated GFR > 60.0 BUN/Creatinine Ratio 22.4 H Glucose 136 H Calcium 9.4 Total Bilirubin 1.0 AST 35 ALT 45 H Alkaline Phosphatase 94 Total Protein 7.4 Albumin 4.1 Globulin 3.3 Albumin/Globulin Ratio 1.2 Ppsin-9-Lxvvuvthn Ngnsx-4-Eewefcesa Beta Globulins Gamma Globulins Gamma Glob/Tot Protein M-Noah Urine Osmolality Ref Lab Notation Assessment & Plan Assessment and plan (1) Altered mental status: Qualifiers: Altered mental status type: unspecified Qualified Code(s): R41.82 - Altered mental status, unspecified Current visit: Yes Status: Acute (2) Hyponatremia: Current visit: No Status: Acute (3) Dehydration: Current visit: No Status: Acute (4) Nausea: Current visit: No Status: Acute (5) Weakness: Current visit: No Status: Acute Assessment & Plan narrative: ASSESSMENT: Patient is a 64-year-old female with a recent history of cholecystectomy 12 days ago who has now been readmitted for altered mental status; presentation consistent with acute delirium. Differential diagnosis of delirium and confusional states is extensive and her recent history does not provide a readily available answer. However, with growth on urine culture today, UTI could certainly be significant factor; will monitor for mental status improvement with initiation of treatment. RECOMMENDATIONS: - if sertraline is new upon this admission, consider stopping; I would not expect it to be helpful acutely in delirium. However, will defer to PCP who knows patient well if this is something that may have been started regardless for underlying depression/anxiety - Continue trazodone 100mg QHS to help regulate sleep wake cycle - Delirium precautions as you are doing to include: >avoid deliriogenic medications, especially benzodiazepines, anticholinergics, opiate pain medications were possible >frequently re-orientation, including visual or hearing aids if needed >regulate sleep-wake cycles much as possible including minimizing interruptions overnight, access to natural daylight during the day Our team will continue to follow the patient with you while she is admitted; please contact our clinic at [phone] with questions or concerns. We do not have coverage over the weekend, but will check-in on Saturday12/21/19 if patient is still in the hospital. Time Spent With Patient Time with patient: less than 15 minutes
--- NOTE | 2019-12-18 12:24 | CM.DPC ---
DCP: continued: EMR reviewed and case then discussed with Dr. Lopez this morning and again in Team Rounds including Electric Knife Operator Meghana. Dr. Lopez stated that pt's delirium with physical and mental changes was continuing and etiology for this was unknown. [facility] psychiatrist Dr. Mari has consulted and his recommendations for medications have been started: see Dr. Trujillo' addendum to Dr. Lopez's note of 12/16. Dr. Garsia is consulting today. Dr. Lopez is considering a transfer to higher level of care and stated that she planned today to consult with neurology for further guidance on this case. Pt's prior level of function a week ago was independent with occasional cane use outside and pt was driving. She does live with her parents. She is far from this mental and physicial baseline. Dr. Lopez is aware that PT is recommending snf but also says a d/c to that setting is in no way appropriate until a clear diagnosis is make and pt begins to stabilize. DCP team will continue to follow.
[2019-12-18] MEDS: MULTIVITAMIN 1 TABLET 1 TAB PO (13:23)
[2019-12-18] MEDS: CEFTRIAXONE 1 GM/50 ML FROZ.PIGGY IV (13:24)
[2019-12-18] MEDS: SODIUM CHLORIDE 0.9% 1,000 ML 125 ML IV ×2 (13:24→22:10)
[2019-12-18] MEDS: SERTRALINE 50 MG TABLET PO (20:44)
[2019-12-18] MEDS: TRAZODONE 100 MG TABLET PO (20:44)
[2019-12-19 05:00] VITALS: BP 188/87; PULSE 73; RESP 16; TEMP 36.1; O2SAT 98
[2019-12-19 05:53] LABS: Add Manual Diff / Slide Review NO; Basophils Absolute Auto 100 /uL (0-100); Basophils Percent Auto 0.6 % (0-2); Eosinophils Absolute Auto 100 /uL (0-450); Hematocrit 37.9 % (36-46); Hemoglobin 13.3 g/dL (12.0-16.0); Lymphocytes Absolute Auto 1500 /uL (1100-4500); Lymphocytes Percent Auto 16.3 % (25-40); Mean Corpuscular HGB Conc 35.2 % (30-36); Mean Corpuscular Hemoglobin 33.8 PG (26-34); Monocytes Absolute Auto 700 /uL (0-900); Monocytes Percent Auto 7.2 % (3-14); Neutrophils Absolute Auto 6700 /uL (1500-7000); Neutrophils Percent Auto 74.9 % (50-75); Platelet Count 203 X10^3/uL (150-400); Red Blood Cell Count 3.94 X10^6/uL (4.0-5.2); Red Cell Distribution Width 12.2 % (11.6-14.8)
[2019-12-19 05:59] LABS: Alanine Aminotransferase 45 IU/L (<35); Albumin 3.8 g/dL (3.5-5.0); Albumin Globulin Ratio 1.2 (1.0-2.8); Alkaline Phosphatase 90 U/L (38-126); Aspartate Aminotransferase 36 IU/L (14-36); BUN Creatinine Ratio 26.4 (6-22); Bilirubin Total 0.8 mg/dL (0.2-1.3); Blood Urea Nitrogen 14 mg/dL (7-17); Carbon Dioxide 25 mmol/L (22-32); Chloride 102 mmol/L (98-107); Estimated Glomerular Filt Rate > 60.0 mL/min (>60); Globulin 3.2 g/dL (1.7-4.1); Glucose 123 mg/dL (80-110); HEMOLYSIS < 15 (0-50); Potassium 4.1 mmol/L (3.4-5.1); Sodium 132 mmol/L (137-145)
[2019-12-19] MEDS: LEVOTHYROXINE 100 MCG TABLET 200 MCG PO (06:11)
[2019-12-19] MEDS: SODIUM CHLORIDE 0.9% 1,000 ML 125 ML IV (06:41)
[2019-12-19 07:45] VITALS: BP 168/83; PULSE 70; RESP 16; TEMP 36.1; O2SAT 100
[2019-12-19] MEDS: MULTIVITAMIN 1 TABLET 1 TAB PO (09:47)
[2019-12-19] MEDS: POTASSIUM CHLORIDE 20 MEQ TAB PO ×2 (09:47→16:59)
[2019-12-19] MEDS: AMLODIPINE 5 MG TABLET 10 MG PO (09:47)
[2019-12-19] MEDS: LOSARTAN 50 MG TABLET PO ×2 (09:47→20:52)
[2019-12-19] MEDS: ENOXAPARIN 40 MG/0.4 ML SYRINGE SUBCUT (09:48)
--- NOTE | 2019-12-19 10:11 | CM.DPC ---
Addendum entered by Donna Dee R.N. 12/19/19 13:04: Attempted to get in touch with patient's father, but line was busy. Checked on patient, she was up in her chair sleeping. Will continue to attempt to get in touch with patient's father regarding her baseline situation at home. It is noted that patient did work with P.T. today. Addendum entered by Donna Dee R.N. 12/19/19 10:48: Spoke to Vonda at [facility], and let her know that referral would be faxed for review. Faxed over prognotes, face sheet, and P.T. notes. She will review today. Original Note: DCP Cont: Discussed patient briefly with Dr. Pritchard, who will be seeing her this morning. Let him know that skilled is recommending half-way, secondary to weakness and incontinence. Living situation, as is noted, is that she lives with her elderly parents. May contact her father today, if she continues to be confused, to discuss half-way before she is able to go home. P: DCP to continue to follow closely. Patient may need half-way. Will attempt to contact patient's father if she continues with confusion. Is uncertain if he is POA. Donna Dee RN/Assistant Professor Of History
--- NOTE | 2019-12-19 10:58 | PM.PN.1 ---
Subjective Subjective Date Patient Seen: 12/19/19 Time Patient Seen: 10:58 Interval history: Delirium. Patient examined today she voices no complaints. Readily admits she has no recollection of last several days here in the hospital. Not terribly hungry. No respiratory symptoms. No abdominal pain no nausea. Exam Vital Signs (past 8 hours): - 12/19/19 05:00 12/19/19 07:45 Temperature 97.0 F L 97.0 F L Pulse Rate 73 70 Respiratory Rate 16 16 Blood Pressure 188/87 H 168/83 H Pulse Oximetry 98 100 Oxygen Delivery Method Room Air Oxygen Flow Rate 0 Narrative Exam Narrative: The patient is resting quietly in hospital bed appears in no distress whatsoever. Lungs are clear. Heart regular rhythm no murmur gallop. Carotids 1+ no bruits. Abdominal exam. Normal bowel sounds no hepatosplenomegaly no masses no tenderness. Calves are nontender. She has no edema. Neurologic exam cranial nerves 2-12 intact. Her mental status exam did not do today's date. Did not know the day the week. Thought current month was January and the year 2010. She is aware of this is hospital but unknown name. She is aware that we are in the [facility] but unknown City. And does not know the name of the current energy operations vice president Objective Labs Result Diagrams: 12/19/19 05:35 12/19/19 05:35 Labs: Laboratory Results - last 24 hr 12/19/19 12/19/19 05:35 05:35 WBC 9.0 RBC 3.94 L Hgb 13.3 Hct 37.9 MCV 96.0 MCH 33.8 MCHC 35.2 RDW 12.2 Plt Count 203 Neut % (Auto) 74.9 Lymph % (Auto) 16.3 L [place] % (Auto) 7.2 Eos % (Auto) 1.0 L Baso % (Auto) 0.6 Neut # (Auto) 6700 Lymph # (Auto) 1500 [place] # (Auto) 700 Eos # (Auto) 100 Baso # (Auto) 100 Sodium 132 L Potassium 4.1 Chloride 102 Carbon Dioxide 25 BUN 14 Creatinine 0.53 Estimated GFR > 60.0 BUN/Creatinine Ratio 26.4 H Glucose 123 H Calcium 9.0 Total Bilirubin 0.8 AST 36 ALT 45 H Alkaline Phosphatase 90 Total Protein 7.0 Albumin 3.8 Globulin 3.2 Albumin/Globulin Ratio 1.2 labs reviewed as above serum sodium 132 relatively stable. Her fasting blood sugars have been approximately 125 apparent history of diabetes in the past unclear to me right this moment. MRI done yesterday showed no acute changes no stroke node changes from her pre-existing MRI. Remain on aldosterone levels pending. Urine culture did in fact improve urinary tract infection she is on appropriate antibiotic. Urinalysis was done on admission there is no abnormal findings so was not cultured. Assessment & Plan Assessment & Plan narrative: 1. Patient admitted with a diagnosis of acute delirium. No obvious etiology has been found. She may in fact had a occult urinary tract infection on admission and she is now on appropriate antibiotics so therefore events from this presumably she will improve over the next couple days. Her serum sodium is 132 if her mental status changes because of this may take days to improve of will continue her on the small amount of normal saline intravenously. Questions at have yet to be answer whether not this is psychiatric and has is been seen by 2 different psychiatrists with no obvious determination. It appears that her exam is a today is certainly is consistent with the dementia. Unclear to me how much of this is reversible yet to be determined. Will continue with IV antibiotics, decrease IV fluids to 75 cc an hour of normal saline continue medications as ordered by prior physicians social service to be involved as far as discharge planning. Physical therapy occupational therapy are also consulted and assisting in assessment Quality VTE Deep Vein Thrombosis/Pulmonary Embolism Present on Admission: No
--- NOTE | 2019-12-19 11:05 | PT.IPTN ---
Current Diagnoses Dehydration (12/17/19) Hypo-osmolality and hyponatremia (12/17/19) Nausea (12/17/19) Altered mental status, unspecified (12/17/19) Weakness (12/17/19) Physical Therapy Treatment Note M2 PT-IP Current Condition Start: 12/16/19 08:51 Freq: NEEDED Status: Active Protocol: Document 12/16/19 10:45 HH (Rec: 12/16/19 13:42 HH [id number]) Physical Therapy Current Condition Current Condition Evaluation Date 12/16/19 Treatment Diagnosis Acute AMS, unexplainted weight loss, generalized weakness Onset Date 3 days ago Precautions Abdominal Surgery Precautions Log Roll,Lifting Restrictions, Gait Belt above Incisional Area Weight Bearing Status Weight Bearing Status Full Weight Bearing M3 PT-IP Subjective Start: 12/16/19 08:51 Freq: NEEDED Status: Active Protocol: Document 12/19/19 11:05 AB (Rec: 12/19/19 12:06 AB [id number]) Subjective Physical Therapy Visit Type Type Treatment Note Visit Start Time 11:05 Visit Stop Time 11:25 Total Visit Minutes 20 Number of FORM MAKER PLASTER Visits 0 Physical Therapy Visit Comments Patient Comments pt agreeable to do PT M4 PT-IP Mobility and Gait Start: 12/16/19 08:51 Freq: NEEDED Status: Active Protocol: Document 12/19/19 11:05 AB (Rec: 12/19/19 12:06 AB [id number]) PT-Bed Mobility Assessment Supine to Sit Supine to Sit Contact Guard Assistance,1 Person Assistance,Head of Bed Elevated PT-Transfer Assessment Sit to and From Stand Sit to and from Stand Minimal Assistance,1 Person Assistance,Use of Upper Extremities Equipment Transfer Assistive Device Gait Belt,Front Wheeled Walker Orthotic/Prosthetic Devices or Brace: No Transfers Transfer Destination Toilet Transfer Technique ambulated using FWW Transfer Ability Level of Assist Moderate Assistance,1 Person Assistance,Use of Upper Extremities Comments Mobility Comments pt is more alert today and responding to questions but continues to have confusion. pt completed supine to sit CGA with HOB elevated. pt was able to sit on EOB SBA. completed sit to stand x 2 attempts min A and cues and ambulated to the toilet using FWW mod A and max cues. pt tends to move FWW too far forward and requires assist with FWW maneuvering for safety. Pt ambulated from the toilet to the chair using FWW mod A and cues. Left pt with OT. Gait Assessment Gait Gait Assistance Required: Moderate Assistance,1 Person Assist Distance (Feet) 10 Able to Maintain Weight Bearing Status Yes During Gait Assistive Devices Assistive Device Gait Belt,Front Wheeled Walker Orthotic/Prosthetic Devices or Brace: No Gait Deviations General Gait Pattern Antalgic,Decreased Stride Length,Decreased Feet Clearance,Step-to Gait Factors Limiting Gait Function Factors Limiting Gait Function Decreased Sensation,Decreased Strength,Difficulty Following Directions,Poor Balance,Poor Safety Awareness Comments Gait Comments pls refer to mobility section for details M5 PT-IP Objective Assessments Start: 12/16/19 08:51 Freq: NEEDED Status: Active Protocol: Document 12/16/19 10:45 HH (Rec: 12/16/19 13:42 HH [id number]) Orientation Orientation/Cognition Level of Alertness Confusional State Orientation Name Language Function Ability No Deficits Noted Safety Awareness Decreased Safety Awareness Comments Pt is delirius and but able to follow simple commands. She was only able to recall her name and parents' names. Gross Range of Motion Upper Extremity ROM Assessment Within Functional Limits Lower Extremity ROM Assessment Within Functional Limits Strength Upper Extremity Strength Assessment Within Functional Limits Lower Extremity Strength Assessment Within Functional Limits M6 PT-IP Treatment Start: 12/16/19 08:51 Freq: NEEDED Status: Active Protocol: Document 12/18/19 11:49 AB (Rec: 12/18/19 13:36 AB [id number]) Physical Therapy Treatment Education Education Provided Safety M7 PT-IP Assessment and Plan Start: 12/16/19 08:51 Freq: NEEDED Status: Active Protocol: Document 12/19/19 11:05 AB (Rec: 12/19/19 12:06 AB [id number]) PT Summary Assessment and Plan Potential Rehabilitation Potential Fair Summary Impairments Strength,Balance,Coordination, Cognition,Bed Mobility, Transfers,Gait,Activity Tolerance Progress Towards Goals Slow Progress due to Medical Issues,Slow Progress due to Activity Tolerance Assessment Summary pt is more alert today and able to participate better. pt requires mod A with ambulation using fWW with max cues required for safety. pt will require SNF rehab to improve strength and functional independence. Goals Bed Mobility Goal Standby Assistance Transfer Goal Standby Assistance,Front Wheeled Walker Gait Goal Standby Assistance,Front Wheel Walker Gait Distance 200 Other Goals 3 STEPs with B rails for front entrance 3 STEPs with L rail for garage entrance Days to Meet Goals 5 Frequency of Treatment Frequency Of Treatment Once a Day Treatment Plan Physical Therapy Treatment Plan Bed Mobility Training,Transfer Training,Gait Training, Therapeutic Exercise,Balance Retraining,Discharge Planning Other Recommendations and Next Treatment mobility as haroldo without AD Focus stair climbing if possible Recommendations To Nursing Amount of Assist Needed 2 Person Assist Discharge Recommendations PT Discharge Recommendations SNF Rehab Equipment Needed for Home Before FWW if pt goes home Discharge Transportation Needs at Discharge Private Vehicle,Wheelchair/ Cabulance
[2019-12-19] MEDS: CEFTRIAXONE 1 GM/50 ML FROZ.PIGGY IV (11:43)
[2019-12-19 11:56] VITALS: BP 100/48; PULSE 63; RESP 16; TEMP 36.3; O2SAT 99
--- NOTE | 2019-12-19 12:00 | OT.IP.TRT ---
Current Diagnoses Dehydration (12/17/19) Hypo-osmolality and hyponatremia (12/17/19) Nausea (12/17/19) Altered mental status, unspecified (12/17/19) Weakness (12/17/19) Occupational Therapy Treatment Note M2 OT-IP Current Condition Start: 12/16/19 13:23 Freq: Status: Active Protocol: Document 12/16/19 11:50 PJM (Rec: 12/16/19 13:57 PJM [id number]) Occupational Therapy Current Condition Current Condition Evaluation Date 12/16/19 Treatment Diagnosis decreased cognition, act tolerance, self care with dx unknown Diagnosis Onset Date 12/15/19 Post Operative Precautions Other Precautions fall risk, bed/chair alarm, confusion M3 OT- IP Subjective and Pain Start: 12/16/19 13:23 Freq: Status: Active Protocol: Document 12/19/19 11:49 CGR (Rec: 12/19/19 12:00 CGR [id number]) OT- Subjective Occupational Therapy Visit Type Type Treatment Note Visit Start Time 11:05 Visit Stop Time 11:38 Total Visit Minutes 33 Notes Parital co-treat with P.T. Occupational Therapy Visit Comments Patient Comments I need to go to the bathroom. OT Pain Assessment Pain When Pain Assessed At Rest Pain Present Pain Present Denied Pain M4 OT- IP ADL's Start: 12/16/19 13:23 Freq: Status: Active Protocol: Document 12/19/19 11:49 CGR (Rec: 12/19/19 12:00 CGR [id number]) OT [id number] Comments OT Self-Feeding Comments Not meal time OT ADL-Grooming General Evaluation Grooming Ability Maximum Assistance Areas Needing Assistance Retrieving/Set-up of Grooming Items,Combing/Brushing Hair Comments OT Grooming Comments Washing hands multiple times d /t feces under finger nails from pericare. Seated in chair at sink. OT ADL-Oral Care Comments Oral Care Comments Pt declined to perform OT ADL-Dressing General Eval Upper Body Dressing Ability Moderate Assistance Lower Body Dressing Ability Maximum Assistance Areas Needing Assistance Retrieving/Set-up of Clothing, Underpants/Brief,Socks Comments OT Dressing Comments Clean hospital gown, donning of clean brief and socks. OT ADL-Toileting General Evaluation Toileting Ability Moderate Assistance Areas Needing Assistance Manage Clothing,Perform Perineal Hygiene Devices Toileting Assistive Devices Grab Bars Comments OT Toileting Comments Pt needed assist with pericare for thoroughness. OT ADL-Bathing Comments OT Bathing Comments Not performed on this date. Pt too fatigued but would benefit from shower. M5 OT- IP IADL's Start: 12/16/19 13:23 Freq: Status: Active Protocol: Document 12/16/19 11:50 PJM (Rec: 12/16/19 13:57 PJM [id number]) OT-Instrumental Activities of Daily Living Deficits IADL Deficits Identified Deficits Home Safety Awareness Awareness of Need for Assistance at Home Decreased Awareness Ability to Problem Solve Emergency Unable to Problem Solve Situations Medication Management Medication Management Caregiver Administers Medication Management Comments pt needs total assist at present due to confusion and short term memeory deficits Money Management Money Management Caregiver Provides Assistance Money Management Comments pt needs total assist at present due to confusion and short term memeory deficits Meal Preparation Meal Preparation Caregiver Provides Assist Meal Preparation Comments pt needs total assist at present due to confusion and short term memeory deficits Deep Sea Diver Deep Sea Diver Caregiver Provides Assist Deep Sea Diver Comments pt needs total assist at present due to confusion and short term memeory deficits Driving Driving Concerns Identified Regarding Safety Driving Comments pt needs total assist at present due to confusion and short term memeory deficits M6 OT- IP Functional Cognition Start: 12/16/19 13:23 Freq: Status: Active Protocol: Document 12/19/19 11:49 CGR (Rec: 12/19/19 12:00 CGR [id number]) Cognitive Factors Limiting Selfcare Function Cognitive Ability Level of Alertness Alert Patient Orientation Name,Birthday Attention Span Ability Unable to Sustain Attention Ability to Follow Commands Able to Follow One Step Commands with Increased Time, Able to Follow One Step Commands with Repetition Memory Description Immediate Impaired,Short Term Impaired,Certified Medication Aide Impaired, Working Impaired Safety Awareness Underestimates Need for Assistance Problem Solving Ability Unable to Identify Errors, Needs Assist to Identify Solutions Executive Function Ability Unable to Hold Focus,Unable to Switch Focus Cognitive Comments Cognitive Assessment Comments Pt needed max cues for not throwing wipes in toilet dispite being told upon the prior wipe. Pt unable to state what city she lives in or which hospital she is in but she knows she is in the hospital. M7 OT- IP Mobility and Balance Start: 12/16/19 13:23 Freq: Status: Active Protocol: Document 12/19/19 11:49 CGR (Rec: 12/19/19 12:00 CGR [id number]) OT- Bed Mobility Assessment Rolling Level of Assistance Contact Guard Assistance,Head of Bed Elevated Supine to Sit Supine to Sit Assist Contact Guard Assistance,Head of Bed Elevated Scooting Scooting to Edge of Bed Contact Guard Assistance,Head of Bed Elevated OT-Transfer Assessment Sit to and From Stand Sit to and from Stand Minimal Assistance Transfers Transfer Ability Minimal Assistance Technique Transfer Destination Bed,Chair,Toilet Transfer Technique Stand Step Pivot Devices Transfer Assistive Devices Gait Belt,Front Wheeled Walker OT- Gait Assessment Gait Gait Assistance Required: Moderate Assistance Assistive Devices Assistive Device Gait Belt,Front Wheeled Walker Comments Gait Ability Comments Pt pushes walker too far forward and needs VC to manuver. OT- Balance Assessment Sitting Balance and Reactions Static Sitting Balance Ability Good Dynamic Sitting Balance Ability Fair M8 OT- IP Objective Assessments Start: 12/16/19 13:23 Freq: Status: Active Protocol: Document 12/16/19 11:50 PJM (Rec: 12/16/19 13:57 PJM [id number]) OT Gross Range of Motion Upper Extremity Range of Motion Assessment Within Functional Limits OT Strength Upper Extremity Strength Assessment Within Functional Limits Hand Restaurant Kitchen And Service Manager Strength Hand Dominance Right OT- Coordination Assessment Comments Coordination Comments BUE WFL OT-Muscle Tone Assessment Muscle Tone WNL Yes OT Sensation Assessment Comments Summary Comments pt detects lt touch in BUE's Edema Edema Absent M9 OT- IP Assessment and Plan Start: 12/16/19 13:23 Freq: Status: Active Protocol: Document 12/19/19 11:49 CGR (Rec: 12/19/19 12:00 CGR [id number]) OT Summary Assessment and Plan Potential Rehabilitation Potential Good Analytic Complexity at Evaluation Low Summary OT Impairments Functional Cognition, Functional Mobility,Dressing, Toileting,Bathing,Toilet Transfers,Shower Transfers, Activity Tolerance Progress Towards Goals Slow Progress due to Medical Issues,Slow Progress due to Activity Tolerance,Slow Progress due to Cognition Assessment Summary Pt with progress today in regards to physical mobility. Pt needed max vc for performing tasks and appears very sleepy after minimal activity. Pt was able to follow commands with increased time and repetition of comand . Pt will continue to benefit from OT services. Recommendation is for d/t to SNF at this time. Goals Self-Feeding Goal Minimal Assistance Grooming Goal Standby Assistance Dressing Goal Standby Assistance Toileting Goal Standby Assistance Bathing Goal Standby Assistance Toilet Transfer Goal Standby Assistance Shower Transfer Goal Standby Assistance,Walk-in Shower,Shower Chair Patient/Caregiver Education Goal Caregiver Independent Assisting Patient Days to Meet Goals 14 Frequency of Treatment Frequency Of Treatment Once a Day Treatment Plan OT Treatment Plan ADL Training,Functional Cognition Training,Functional Mobility,Patient/Family Education,Discharge Planning Other Treatment Recommendations and Next seated shower if able Treatment Focus Discharge Recommendations OT Discharge Recommendations SNF Rehab Home Equipment Needs shower seat Transportation Needs at Discharge Private Vehicle
--- NOTE | 2019-12-19 15:46 | PC.NURSE ---
Shift summary: Patient falls asleep easily, awakens to voice, remains confused and disoriented. Knows her name and her birthday. Does not know where she is and doesn't remember why she is here. Patient smiles and denies pain when asked. Patient states she is not hungry and refused to eat both breakfast and lunch today, offered and encouraged several times. Patient sipped on ensure drink this morning only. IV fluids as ordered infusing. Patient worked with P.T. and O.T. today, and sat up in chair. Patient now back in bed, sleeping, call light withn reach, and bed alarm on for safety.
[2019-12-19 16:50] VITALS: BP 153/95; PULSE 77; RESP 16; TEMP 36.6; O2SAT 100
[2019-12-19] MEDS: SODIUM CHLORIDE 0.9% 1,000 ML 75 ML IV (18:37)
[2019-12-19 20:20] VITALS: BP 150/85; PULSE 72; RESP 18; TEMP 36.1; O2SAT 98
[2019-12-19] MEDS: SERTRALINE 50 MG TABLET PO (20:53)
[2019-12-19] MEDS: TRAZODONE 100 MG TABLET PO (20:53)
[2019-12-19 23:35] VITALS: BP 152/96; PULSE 75; RESP 18; TEMP 36.3; O2SAT 99
--- NOTE | 2019-12-19 23:56 | PC.NURSE ---
Patient alert to name, , place. Was not sure which hospital she was in. Patted the bed searching for something. she was looking for her ferret. Explained it must be at home since we do not let pets into the hospital.
[2019-12-20 06:09] LABS: BUN Creatinine Ratio 19.2 (6-22); Blood Urea Nitrogen 10 mg/dL (7-17); Calcium 8.8 mg/dL (8.4-10.2); Carbon Dioxide 25 mmol/L (22-32); Chloride 102 mmol/L (98-107); Estimated Glomerular Filt Rate > 60.0 mL/min (>60); Glucose 114 mg/dL (80-110); HEMOLYSIS < 15 (0-50); Potassium 3.9 mmol/L (3.4-5.1); Sodium 132 mmol/L (137-145)
[2019-12-20] MEDS: LEVOTHYROXINE 100 MCG TABLET 200 MCG PO (07:02)
[2019-12-20 07:30] VITALS: BP 149/81; PULSE 73; RESP 16; TEMP 36.1; O2SAT 100
[2019-12-20] MEDS: SODIUM CHLORIDE 0.9% 1,000 ML 75 ML IV ×2 (09:02→22:28)
[2019-12-20] MEDS: LOSARTAN 50 MG TABLET PO ×2 (09:03→20:34)
[2019-12-20] MEDS: ENOXAPARIN 40 MG/0.4 ML SYRINGE SUBCUT (09:03)
[2019-12-20] MEDS: MULTIVITAMIN 1 TABLET 1 TAB PO (09:04)
[2019-12-20] MEDS: AMLODIPINE 5 MG TABLET 10 MG PO (09:04)
[2019-12-20] MEDS: POTASSIUM CHLORIDE 20 MEQ TAB PO ×2 (09:04→17:17)
[2019-12-20] MEDS: SODIUM CHLORIDE 0.9% FLUSH 10 ML IV (09:05)
--- NOTE | 2019-12-20 09:27 | PM.PN.1 ---
Subjective Subjective Date Patient Seen: 12/20/19 Time Patient Seen: 09:27 Interval history: Delirium. Status quo. Patient voices no complaints. Denies chest pain shortness of breath headache abdominal pain nausea. She is unclear why she is not eating but denies nausea this morning she said she had breakfast and [place]. Today she did feel like she was ?stressed?. Exam Vital Signs (past 8 hours): - 12/20/19 07:30 Temperature 96.9 F L Pulse Rate 73 Respiratory Rate 16 Blood Pressure 149/81 H Pulse Oximetry 100 Oxygen Delivery Method Room Air Oxygen Flow Rate 0 Narrative Exam Narrative: Patient is resting quietly in hospital bed per usual she appears in no distress open dries easily the rib my voice. As stated she has no complaints. Mental status exam she appears alert and awake. In response to questions today's month was May, today's stay was is Saturday, no clue on the date. No clue on the year. Thought this town was [place]. Was where the status [place]. Unable answer the president is. Initially I introduced myself and told her my name. At the end of interview I asked her if she remembered my name and she did not. She did not also remember her doctor same who is Dr. Brown She also did not remember her nurse name which is Chris. Cranial nerves 2-12 intact. Remainder of the neurologic exam is physiologic. Lungs clear heart regular rhythm no murmur gallop Objective Labs Result Diagrams: 12/19/19 05:35 12/20/19 05:50 Labs: Laboratory Results - last 24 hr 12/20/19 05:50 Sodium 132 L Potassium 3.9 Chloride 102 Carbon Dioxide 25 BUN 10 Creatinine 0.52 Estimated GFR > 60.0 BUN/Creatinine Ratio 19.2 Glucose 114 H Calcium 8.8 labs from this morning repeat is reviewed sodium is stable 132 BUN 10 creatinine 0.5 to blood sugars 114 renin aldosterone pending Assessment & Plan Assessment & Plan narrative: 1. Patient was admitted with a diagnosis of acute delirium. Unclear to me how much of that has improved. Her neurologic exam from my perspective is unchanged and clearly has significant memory impairment. Perhaps a T the deterioration of her memory impairment was a secondary result of the anesthesia and her surgery postoperatively. This is all theory. She does have sodium on the low side unlikely contribute to the memory impairment. Her urinary tract an infection is present. As stated unclear whether not it was present on admission although apparently not. Nutrition challenges continues they will try her on high protein smoothies. 3. Physical therapy and occupational therapy is also involved and apparently requires a fair amount of assistance. With all the above issues unlikely patient will be able to be discharged home seems likely to benefit from assisted facility social service people involved unclear to me what the end point is for hospitalization at this time will continue her IV fluids at 75 cc an hour of saline and IV antibiotics. Dr. Brown to return tomorrow to resume care Quality VTE Deep Vein Thrombosis/Pulmonary Embolism Present on Admission: No
--- NOTE | 2019-12-20 10:25 | CM.DPC ---
DCP Cont: Spoke to Dr. Pritchard, regarding patient. Stated, patient continues to note some confusion. Let Dr. Pritchard know that this briefcase sewer would call patient's father to get more information regarding her baseline mentality, and activity level. Patient is continuing to be treated for UTI, and sodium level. Patient will need skilled rehab before going home. She will also be working with P.T. again today. Called patient's father, Mitch. Confirmed with this briefcase sewer that their daughter (this patient), moved in with them to help them out, since his has dementia. Stated that this patient is fully functioning at baseline, and has had no memory impairment issues. He did mention that since patient had her recent surgery, she had not quite been the same, and was noticing some confusion. Discussed [facility] facilities, for father recognizes that he can't take care of her, especially since he has his to care for. Mentioned [facility]. He is familiar with this facility when it was [facility], and is hoping that it has improved with new owners, since his had been there. Patient's father could not confirm if he is her POA, at this time. He will research [facility]. Spoke to Vonda in admissions at [facility]. Stated that she has received the information on her, and do have a bed available. She was asking for H&P. Went ahead and faxed over H&P, as well as prog note from today. She stated that February will review it tomorrow. P: DCP to continue to follow. Plan at this time is for [facility] if they will accept. Encouraged to research other facilities as well. Donna Dee, RN/Safety Trainer
--- NOTE | 2019-12-20 11:04 | PT.IPTN ---
Current Diagnoses Dehydration (12/17/19) Hypo-osmolality and hyponatremia (12/17/19) Nausea (12/17/19) Altered mental status, unspecified (12/17/19) Weakness (12/17/19) Physical Therapy Treatment Note M2 PT-IP Current Condition Start: 12/16/19 08:51 Freq: NEEDED Status: Active Protocol: Document 12/16/19 10:45 HH (Rec: 12/16/19 13:42 HH [id number]) Physical Therapy Current Condition Current Condition Evaluation Date 12/16/19 Treatment Diagnosis Acute AMS, unexplainted weight loss, generalized weakness Onset Date 3 days ago Precautions Abdominal Surgery Precautions Log Roll,Lifting Restrictions, Gait Belt above Incisional Area Weight Bearing Status Weight Bearing Status Full Weight Bearing M3 PT-IP Subjective Start: 12/16/19 08:51 Freq: NEEDED Status: Active Protocol: Document 12/20/19 10:52 AW (Rec: 12/20/19 11:04 AW [id number]) Subjective Physical Therapy Visit Type Type Treatment Note Visit Start Time 09:51 Visit Stop Time 10:16 Total Visit Minutes [address] CLERK Visits 0 Physical Therapy Visit Comments Patient Comments Pt tired but willing to participate with PT M4 PT-IP Mobility and Gait Start: 12/16/19 08:51 Freq: NEEDED Status: Active Protocol: Document 12/20/19 10:52 AW (Rec: 12/20/19 11:04 AW [id number]) PT-Bed Mobility Assessment Supine to Sit Supine to Sit Minimal Assistance,1 Person Assistance Sit to Supine Sit to Supine Contact Guard Assistance Scooting Scooting to Edge of Bed Standby Assistance Scooting Up and Down in Bed Standby Assistance PT-Transfer Assessment Comments Mobility Comments Pt willing to sit at EOB but not willing to attempt standing this visit in spite of max encouragement. She was alert but oriented only to self and day of week, requiring frequent reorientation to place and to task. Min A x 1 required for supine to sit from flat bed and max cues for sequencing. CGA for return to supine. Before activity, BP was 149/81 . Sitting EOB, BP was 90/62 and pt reported dizziness. Back in supine, BP was 140/66. Gait Assessment Comments Gait Comments Pt refused. M5 PT-IP Objective Assessments Start: 12/16/19 08:51 Freq: NEEDED Status: Active Protocol: Document 12/16/19 10:45 HH (Rec: 12/16/19 13:42 [id number]) Orientation Orientation/Cognition Level of Alertness Confusional State Orientation Name Language Function Ability No Deficits Noted Safety Awareness Decreased Safety Awareness Comments Pt is delirius and but able to follow simple commands. She was only able to recall her name and parents' names. Gross Range of Motion Upper Extremity ROM Assessment Within Functional Limits Lower Extremity ROM Assessment Within Functional Limits Strength Upper Extremity Strength Assessment Within Functional Limits Lower Extremity Strength Assessment Within Functional Limits M6 PT-IP Treatment Start: 12/16/19 08:51 Freq: NEEDED Status: Active Protocol: Document 12/20/19 10:52 AW (Rec: 12/20/19 11:04 AW [id number]) Physical Therapy Treatment Education Education Provided Safety Other Treatments Other Treatment Performed Ankle pumps, quad sets, heel slides, straight leg raise 10 reps each side. M7 PT-IP Assessment and Plan Start: 12/16/19 08:51 Freq: NEEDED Status: Active Protocol: Document 12/20/19 10:52 AW (Rec: 12/20/19 11:04 AW [id number]) PT Summary Assessment and Plan Potential Rehabilitation Potential Fair Summary Impairments Strength,Balance,Coordination, Cognition,Bed Mobility, Transfers,Gait,Activity Tolerance Progress Towards Goals Slow Progress due to Medical Issues,Slow Progress due to Activity Tolerance Assessment Summary Pt oriented to self and day of week but otherwise required frequent reorientation to task . She refused mobility past edge of bed this date but was amenable to performing supine exercises after education on importance of continued activity. Pt limited by significant and symptomatic drop in BP from supine to sit. Discussed BP concern with RN. Goals Bed Mobility Goal Standby Assistance Transfer Goal Standby Assistance,Front Wheeled Walker Gait Goal Standby Assistance,Front Wheel Walker Gait Distance 200 Other Goals 3 STEPs with B rails for front entrance 3 STEPs with L rail for garage entrance Days to Meet Goals 5 Frequency of Treatment Frequency Of Treatment Once a Day Treatment Plan Physical Therapy Treatment Plan Bed Mobility Training,Transfer Training,Gait Training, Therapeutic Exercise,Balance Retraining,Discharge Planning Other Recommendations and Next Treatment mobility as haroldo without AD Focus stair climbing if possible Recommendations To Nursing Amount of Assist Needed 2 Person Assist Discharge Recommendations PT Discharge Recommendations SNF Rehab Equipment Needed for Home Before FWW if pt goes home Discharge Transportation Needs at Discharge Private Vehicle,Wheelchair/ Cabulance
[2019-12-20] MEDS: CEFTRIAXONE 1 GM/50 ML FROZ.PIGGY IV (11:56)
[2019-12-20 12:00] VITALS: BP 153/77; PULSE 86; RESP 16; TEMP 36.4; O2SAT 99
--- NOTE | 2019-12-20 13:00 | DIET.PN ---
Addendum entered by Tonya Molina 12/21/19 15:21: Enteral Nutrition Recommendations Jevity (1.2 Lauren) at 70 mL/hr - Start at 20 mL/hr, titrate by 10-20 mL/hr every 4 hours to goal - 300 mL free water flushes every 4 hours (75 mL/hr) - Provides 2016 kcal (23 kcal/kg) and 93 gm (1.1 gm/kg) of protein - Enteral feed and flushes provide 3156 mL (36 mL/kg) of free water Nutritional Monitor Parameters - Check gastric residuals every 4 hours when initiating feeding. May check every 6-8 hours once goal rate is achieved - Hold gastric feeds for residuals more than 500 mL. Avoid holding feeds for residuals < 500 mL without other signs of intolerance Original Note: Dietary Progress Note F/U consult c 64y F patient r/t poor POs (<5% intake of items offered). Nursing has been strongly encouraging POs since readmission with poor response. Pt states is not hungry or incorrectly suggests she just ate and wants to go back to sleep. Nurse Chris has managed minimal sips of PRO smoothie c meds. Regarding BMI in obese range, research shows lean body mass decreases faster in obese patients. Pts weight has decreased by 1# over past 3d with significant severe unintentional weight loss since May 2019 (-15.3%) UBW:105kg (06/11) BMI: 28.7 MNA: 10 malnourished Cory: 19 Nutrition Diagnosis: Severe chronic PCM r/t GI complications aeb energy intake <50% EER > 1mo per father report, GI symptoms (N/V, anorexia) >2 weeks, weight loss >10% in 6 mo (10.4% in 1 mo). Interventions: 1. Pt has had POs (<10% of EERs) for past 4d or more, strongly recc considering EN via NG tube to provide nourishments until PO intake >75% EERs. Diet Order: soft CCD c PRO smoothies EER: 2000 lauren @30cal/kg IBW; 85-100 g pro @ 1.3-1.5g/kg Monitoring/Evaluations: following daily
--- NOTE | 2019-12-20 13:10 | PC.NURSE ---
Patient awaken for lunch, and encouraged to eat. Patient refusing to eat at this time, stating its too much food, and I already ate (even though patient has not eaten. Continue with protein shakes and encouragement. Concerns addressed with Dr. Pritchard this morning over patient not eating. Continue to monitor.
[2019-12-20] MEDS: CIPROFLOXACIN 400 MG/200 ML PIGGYBACK 200 MG IV (16:19)
--- NOTE | 2019-12-20 16:28 | PC.NURSE ---
Addendum entered by Coni Batista R.N. 12/20/19 22:29: Pt resting quietly in bed with eyes closed and head of bed slightly elevated. Rouses to movement in room. Bed alarm in place. BL heels floated on pillow to offload pressure. Addendum entered by Coni Batista R.N. 12/20/19 22:17: Very heavy incontinent void. Able to follow simple commands for replacing brief and repositioning in bed. Pt does not initiate any activity on own; requires instruction from staff for ADL's; personal care. Addendum entered by Coni Batista R.N. 12/20/19 20:40: I thought we'd be a little closer to [place] by now. Pt was reoriented to place, situation and staff. Pt states, I'm a little shaky on my senses today. Meds whole with applesauce. Will accept sips of oral fluids when offered, but will not initiate. Denies nausea. Addendum entered by Coni Batista R.N. 12/20/19 18:43: Oriented to person and date of , but not to place, location or month. Pt does state, I'm tired. Mostly lying in bed quietly with eyes closed unless staff present to provide interventions. Verbal cueing needed for pt to participate in brief change. Addendum entered by Coni Batista R.N. 12/20/19 17:46: Pt now fully awake. Head of bed bolt upright for evening meal. DIALYSIS EQUIPMENT TECHNICIAN encourages and facilitates. Pt grimaces with swallow, but denies pain with swallow. Oral cavity clear and intact with inspection. Ensure over ice provided as feedback from another RN states this historically has been a favorite. Original Note: Pt mostly sleeping. Rouses to voice and tactile stimuli after several attempts to rouse patient. Pt mainly nonverbal upon being awakened from sound sleep. Does follow simple commands and gives one word responses. Orientation questions not asked at this time. Pt positions self on right side in bed. Pulls own blankets up over shoulders. Abdomen is large with scattered, healing lap sites. No signs of pain or discomfort. BL calf scd's in place. Heels are reddened L > R and will continue to monitor for pressure. Bed alarm in place.
[2019-12-20 20:00] VITALS: BP 152/77; PULSE 72; RESP 95; TEMP 37.1; O2SAT 95
[2019-12-20] MEDS: SERTRALINE 50 MG TABLET PO (20:33)
[2019-12-20 20:34] VITALS: BP 152/77; PULSE 72
[2019-12-20] MEDS: TRAZODONE 100 MG TABLET PO (20:34)
[2019-12-20 23:43] VITALS: BP 138/56; PULSE 65; RESP 18; TEMP 36.2; O2SAT 99
--- NOTE | 2019-12-21 01:55 | PC.NURSE ---
Patient is alert but oriented only to name, birthdate and hospital. Breath sounds diminished at bases; RA sat 99%. HRR. Denies nausea. BT present and abdomen is soft. Lap sites to abdomen scabbed; well approximated and without redness. Abrasion noted on right breast. Incontinent of urine; denies dysuria. Able to turn self in bed. Gait not assessed as not out of bed at this time. Denies pain. Wearing bilateral calf SCD's. Fall risk score is high and bed alarm is activated.
[2019-12-21] MEDS: CIPROFLOXACIN 400 MG/200 ML PIGGYBACK 200 MG IV ×2 (03:33→14:56)
[2019-12-21] MEDS: LEVOTHYROXINE 100 MCG TABLET 200 MCG PO (06:21)
[2019-12-21 07:06] LABS: BUN Creatinine Ratio 7.8 (6-22); Blood Urea Nitrogen 4 mg/dL (7-17); Carbon Dioxide 26 mmol/L (22-32); Chloride 100 mmol/L (98-107); Estimated Glomerular Filt Rate > 60.0 mL/min (>60); Glucose 111 mg/dL (80-110); HEMOLYSIS < 15 (0-50); Potassium 3.6 mmol/L (3.4-5.1); Sodium 131 mmol/L (137-145)
--- NOTE | 2019-12-21 07:36 | PC.NURSE ---
patient awakens easily upon my arrival, smiles and says she slept on and off last night. Denies pain at this time. Bed alarm on for safety. Call light within reach.
[2019-12-21 08:00] VITALS: BP 116/66; PULSE 63; RESP 18; TEMP 36.6; O2SAT 100
[2019-12-21] MEDS: ENOXAPARIN 40 MG/0.4 ML SYRINGE SUBCUT (09:21)
[2019-12-21] MEDS: LOSARTAN 50 MG TABLET PO ×2 (09:21→20:50)
[2019-12-21] MEDS: AMLODIPINE 5 MG TABLET 10 MG PO (09:21)
[2019-12-21] MEDS: SODIUM CHLORIDE 0.9% FLUSH 10 ML IV ×2 (09:22→20:50)
[2019-12-21] MEDS: POTASSIUM CHLORIDE 20 MEQ TAB PO ×2 (09:22→16:31)
[2019-12-21] MEDS: MULTIVITAMIN 1 TABLET 1 TAB PO (09:22)
--- NOTE | 2019-12-21 11:52 | CM.DPC ---
Addendum entered by YARED Sharpe 12/21/19 15:50: ADD: Per MD, spoke to pt's father and preference is now for pt to d/c home with HH and private caregiver to stay and assist. PALOMA called pt's father Mitch and confirmed above and preference is [facility] as they have used them in the past. PALOMA requested CC Radha to make [facility] referral in the morning. SW completed F2F and left copy on pt chart for MD to sign. SW inquired about caregiver and father Mitch states he is hammering out final details with the caregiver and feels he has it under control but confirmed DCP extension in case he needs further phone numbers and contacts for caregiver agencies. Plan: SW to follow for confirming with [facility] that they can accept pt in a timely manner and faxing F2F once signed by . YARED Sharpe Original Note: DCP SNF planning Per , pt etiology still unknown but pt medically stable for SNF rehab and outpt neurology follow up. PALOMA discussed with MD and PT/OT if pt could tolerate Acute Inpt Rehab but medical team currently doubtful that she could tolerate 3 hours rehab. PALOMA contacted , [facility], [facility] Acute Rehab Inpt units to determine if pt may meet criteria and only Acute Inpt had potential openings and willing to review and SW faxed clinicals on the chance they may accept. PALOMA called [facility] and [facility] SNF's to inquire about their review and [facility] needs to review with their administrators and [facility] confirms that they can accept pt but not until tomorrow (Saturday). PALOMA called pt's father to update on above and father states he is fairly opposed to SNF at this time primarily due to COVID 19 in the community. PALOMA discussed the pt's current need for assist with ambulating, toileting, and feeding and discussed Medicare coverage of SNF vs if pt were to return home the need for private caregivers to be set up that is not covered by insurance. Father requesting to have medical update from first. PALOMA called Dr. Brown and updated on acceptance at [facility] tomorrow and [facility] still reviewing and father's concerns with SNF and requesting medical update and Dr. Brown willing to call pt's father Mitch now. Plan: SW to follow after updates pt's father regarding pt's medical status and needs to determine if father will be agreeable with [facility] tomorrow vs home with private caregivers?? YARED Sharpe
--- NOTE | 2019-12-21 11:56 | PT.IPTN ---
Current Diagnoses Dehydration (12/17/19) Hypo-osmolality and hyponatremia (12/17/19) Nausea (12/17/19) Altered mental status, unspecified (12/17/19) Weakness (12/17/19) Physical Therapy Treatment Note M2 PT-IP Current Condition Start: 12/16/19 08:51 Freq: NEEDED Status: Active Protocol: Document 12/16/19 10:45 HH (Rec: 12/16/19 13:42 HH [id number]) Physical Therapy Current Condition Current Condition Evaluation Date 12/16/19 Treatment Diagnosis Acute AMS, unexplainted weight loss, generalized weakness Onset Date 3 days ago Precautions Abdominal Surgery Precautions Log Roll,Lifting Restrictions, Gait Belt above Incisional Area Weight Bearing Status Weight Bearing Status Full Weight Bearing M3 PT-IP Subjective Start: 12/16/19 08:51 Freq: NEEDED Status: Active Protocol: Document 12/21/19 11:14 LJ (Rec: 12/21/19 11:56 LJ [email or web address]) Subjective Physical Therapy Visit Type Type Treatment Note Visit Start Time 11:14 Visit Stop Time 11:34 Total Visit Minutes 20 Number of FLORAL DEPARTMENT SPECIALIST Visits 1 Physical Therapy Visit Comments Patient Comments Pt tired but willing to participate with PT M4 PT-IP Mobility and Gait Start: 12/16/19 08:51 Freq: NEEDED Status: Active Protocol: Document 12/21/19 11:14 LJ (Rec: 12/21/19 11:56 LJ [id number]) PT-Bed Mobility Assessment Supine to Sit Supine to Sit Minimal Assistance,1 Person Assistance,Head of Bed Elevated,Bedrails Sit to Supine Sit to Supine Contact Guard Assistance PT-Transfer Assessment Sit to and From Stand Sit to and from Stand Maximum Assistance,2 Person Assistance,Use of Upper Extremities Comments Mobility Comments Pt willing to sit at edge of bed with much coaxing and attempt to stand to have brief and bed change. Required Maddy and extended time with extensive cueing to get to sitting on edge of bed. Attempted standing x2. First attempt with MaxA x1 and second attempt MaxA x2 both unsuccessful. Pt refused to try a third time and requested to lay back in bed. Pt was able to lift her legs CGA into bed and perform 2 bridges to remove bed pad and reposition herself. STOCK CLERK SELF SERVICE STORE x2 in room to finish bed change. Gait Assessment Comments Gait Comments pt refused. See mobility section. M5 PT-IP Objective Assessments Start: 12/16/19 08:51 Freq: NEEDED Status: Active Protocol: Document 12/16/19 10:45 HH (Rec: 12/16/19 13:42 HH [id number]) Orientation Orientation/Cognition Level of Alertness Confusional State Orientation Name Language Function Ability No Deficits Noted Safety Awareness Decreased Safety Awareness Comments Pt is delirius and but able to follow simple commands. She was only able to recall her name and parents' names. Gross Range of Motion Upper Extremity ROM Assessment Within Functional Limits Lower Extremity ROM Assessment Within Functional Limits Strength Upper Extremity Strength Assessment Within Functional Limits Lower Extremity Strength Assessment Within Functional Limits M6 PT-IP Treatment Start: 12/16/19 08:51 Freq: NEEDED Status: Active Protocol: Document 12/21/19 11:14 LJ (Rec: 12/21/19 11:56 LJ [id number]) Physical Therapy Treatment Other Treatments Other Treatment Performed Attempted LE exercises but pt repeatedly stated she was unable. M7 PT-IP Assessment and Plan Start: 12/16/19 08:51 Freq: NEEDED Status: Active Protocol: Document 12/21/19 11:14 LJ (Rec: 12/21/19 11:56 LJ [id number]) PT Summary Assessment and Plan Potential Rehabilitation Potential Fair Summary Impairments Strength,Balance,Coordination, Cognition,Bed Mobility, Transfers,Gait,Activity Tolerance Progress Towards Goals Slow Progress due to Medical Issues,Slow Progress due to Activity Tolerance Assessment Summary Pt initially unwilling to participate with PT but agreed to sit at side of bed to change brief and sheets. Pt unable to stand after 2 attempts with max assist x1 and 2. She was able, however to get herself back into bed and reposition with max cueing and SBA with bridging. She was more willing to try to move when getting back into bed. Goals Bed Mobility Goal Standby Assistance Transfer Goal Standby Assistance,Front Wheeled Walker Gait Goal Standby Assistance,Front Wheel Walker Gait Distance 200 Other Goals 3 STEPs with B rails for front entrance 3 STEPs with L rail for garage entrance Days to Meet Goals 5 Frequency of Treatment Frequency Of Treatment Once a Day Treatment Plan Physical Therapy Treatment Plan Bed Mobility Training,Transfer Training,Gait Training, Therapeutic Exercise,Balance Retraining,Discharge Planning Other Recommendations and Next Treatment bed exercises if unwilling/ Focus unable to get out of bed Recommendations To Nursing Amount of Assist Needed 2 Person Assist Discharge Recommendations PT Discharge Recommendations SNF Rehab
--- NOTE | 2019-12-21 12:04 | OT.IP.TRT ---
Current Diagnoses Dehydration (12/17/19) Hypo-osmolality and hyponatremia (12/17/19) Nausea (12/17/19) Altered mental status, unspecified (12/17/19) Weakness (12/17/19) Occupational Therapy Treatment Note M2 OT-IP Current Condition Start: 12/16/19 13:23 Freq: Status: Active Protocol: Document 12/16/19 11:50 PJM (Rec: 12/16/19 13:57 PJM [id number]) Occupational Therapy Current Condition Current Condition Evaluation Date 12/16/19 Treatment Diagnosis decreased cognition, act tolerance, self care with dx unknown Diagnosis Onset Date 12/15/19 Post Operative Precautions Other Precautions fall risk, bed/chair alarm, confusion M3 OT- IP Subjective and Pain Start: 12/16/19 13:23 Freq: Status: Active Protocol: Document 12/21/19 12:11 CCC (Rec: 12/21/19 12:27 CCC [id number]) OT- Subjective Occupational Therapy Visit Type Type Treatment Note Visit Start Time 11:49 Visit Stop Time 12:04 Total Visit Minutes 15 Occupational Therapy Visit Comments Patient Comments Pt not wanting to get up but open to doing cognitive assessment of Chaim Cognitive Level Screen. Patient/Caregiver Goals Pt unable to states a goal, I do not know. OT Pain Assessment Pain When Pain Assessed At Rest Pain Present Pain Present Denied Pain M4 OT- IP ADL's Start: 12/16/19 13:23 Freq: Status: Active Protocol: Document 12/19/19 11:49 CGR (Rec: 12/19/19 12:00 CGR [id number]) OT [id number] Comments OT Self-Feeding Comments Not meal time OT ADL-Grooming General Evaluation Grooming Ability Maximum Assistance Areas Needing Assistance Retrieving/Set-up of Grooming Items,Combing/Brushing Hair Comments OT Grooming Comments Washing hands multiple times d /t feces under finger nails from pericare. Seated in chair at sink. OT ADL-Oral Care Comments Oral Care Comments Pt declined to perform OT ADL-Dressing General Eval Upper Body Dressing Ability Moderate Assistance Lower Body Dressing Ability Maximum Assistance Areas Needing Assistance Retrieving/Set-up of Clothing, Underpants/Brief,Socks Comments OT Dressing Comments Clean hospital gown, donning of clean brief and socks. OT ADL-Toileting General Evaluation Toileting Ability Moderate Assistance Areas Needing Assistance Manage Clothing,Perform Perineal Hygiene Devices Toileting Assistive Devices Grab Bars Comments OT Toileting Comments Pt needed assist with pericare for thoroughness. OT ADL-Bathing Comments OT Bathing Comments Not performed on this date. Pt too fatigued but would benefit from shower. M5 OT- IP IADL's Start: 12/16/19 13:23 Freq: Status: Active Protocol: Document 12/16/19 11:50 PJM (Rec: 12/16/19 13:57 PJM [id number]) OT-Instrumental Activities of Daily Living Deficits IADL Deficits Identified Deficits Home Safety Awareness Awareness of Need for Assistance at Home Decreased Awareness Ability to Problem Solve Emergency Unable to Problem Solve Situations Medication Management Medication Management Caregiver Administers Medication Management Comments pt needs total assist at present due to confusion and short term memory deficits Money Management Money Management Caregiver Provides Assistance Money Management Comments pt needs total assist at present due to confusion and short term memory deficits Meal Preparation Meal Preparation Caregiver Provides Assist Meal Preparation Comments pt needs total assist at present due to confusion and short term memory deficits Library Media Specialist Library Media Specialist Caregiver Provides Assist Library Media Specialist Comments pt needs total assist at present due to confusion and short term memory deficits Driving Driving Concerns Identified Regarding Safety Driving Comments pt needs total assist at present due to confusion and short term memory deficits M6 OT- IP Functional Cognition Start: 12/16/19 13:23 Freq: Status: Active Protocol: Document 12/21/19 12:11 [facility] (Rec: 12/21/19 12:27 CCC [id number]) Cognitive Factors Limiting Selfcare Function Cognitive Ability Level of Alertness Alert Patient Orientation Name Attention Span Ability Capable of Focused Attention, Capable of Sustained Attention Ability to Follow Commands Able to Follow One Step Commands Memory Description Short Term Impaired,Adobe Block Maker Impaired,Working Impaired Safety Awareness Underestimates Need for Assistance Problem Solving Ability Needs Assist to Identify Solutions Executive Function Ability Unable to Filter Distractions, Unable to Make Plans,Unable to Remember Details Cognitive Tests ACL Pt scored 4.2 out of 6.0 which implies 24 hour supervision to remove dangerous objects outside of her visual field and to solve problems arising from minor changes in the environment. Prompt to do daily self-care tasks and provide meals/finances, and medications. Cognitive Comments Cognitive Assessment Comments Pt not recalling that she did not eat breakfast and unable to expand on why she had a bad night yesterday. M9 OT- IP Assessment and Plan Start: 12/16/19 13:23 Freq: Status: Active Protocol: Document 12/21/19 12:11 [facility] (Rec: 12/21/19 12:27 [facility] [id number]) OT Summary Assessment and Plan Potential Rehabilitation Potential Fair Analytic Complexity at Evaluation Low Summary OT Impairments Functional Cognition, Functional Mobility,Dressing, Toileting,Bathing,Toilet Transfers,Shower Transfers, Activity Tolerance Progress Towards Goals Slow Progress due to Medical Issues,Slow Progress due to Activity Tolerance,Slow Progress due to Cognition Assessment Summary Today noted decreased control with right hand when trying to thread shoelace through the leather, however needing to turn the leather around to figure out where to push in the shoelace through and not able to proprioceptively tell at this time with right hand during ACL assessment for cognition. Pt based on the cognitive assessment would benefit from 24 hour supervision if her parents are able to provide enough assist cognitively and physically versus skilled rehab. Goals Self-Feeding Goal Minimal Assistance Grooming Goal Standby Assistance Dressing Goal Standby Assistance Toileting Goal Standby Assistance Bathing Goal Standby Assistance Toilet Transfer Goal Standby Assistance Shower Transfer Goal Standby Assistance,Walk-in Shower,Shower Chair Patient/Caregiver Education Goal Caregiver Independent Assisting Patient Days to Meet Goals 13 Frequency of Treatment Frequency Of Treatment Once a Day Treatment Plan OT Treatment Plan ADL Training,Functional Cognition Training,Functional Mobility,Patient/Family Education,Discharge Planning Other Treatment Recommendations and Next seated shower if able Treatment Focus Discharge Recommendations OT Discharge Recommendations SNF Rehab Home Equipment Needs shower seat Transportation Needs at Discharge Wheelchair/Cabulance
[2019-12-21] MEDS: SODIUM CHLORIDE 0.9% 1,000 ML 75 ML IV (13:13)
--- NOTE | 2019-12-21 14:16 | PM.PN.1 ---
Subjective Subjective Date Patient Seen: 12/21/19 Time Patient Seen: 08:00 Interval history: Patient seen and evaluated. Discussed the care with the nurse. Also discussed with care management and her father [place]. Patient has had no change in her mental status baseline since admission to the hospital my 1st initial evaluation. Patient does not recognize me. Is unsure that she has an [place] and does not recollect gallbladder surgery. Reviewed CT scans MRIs and other laboratory testing. Vital signs have been stable she is afebrile. Currently being treated for possible urinary tract infection. Her current treatment does not appear to be improving her mental status whatsoever. She is on afebrile. Patient states she is not hungry and has continued to have poor appetite. Exam Vital Signs (past 8 hours): - 12/21/19 08:00 Temperature 97.9 F Pulse Rate 63 Respiratory Rate 18 Blood Pressure 116/66 Pulse Oximetry 100 Oxygen Delivery Method Room Air Oxygen Flow Rate 0 Narrative Exam Narrative: Gen.: She is alert to person not place time patient answers questions appropriately but is obviously confused. HEENT: PERRLA oral mucosa is moist Cardio: S1-S2 regular rate and rhythm no murmurs appreciated. Respiratory: Lungs are clear to auscultation no wheezes or crackles normal respiratory effort. Abdomen: Soft nontender no rebound or guarding no liver spleen enlargement no appreciable hernias Extremities: Full range of motion no appreciable weakness no cyanosis or edema. Neurologic: No focal neurological deficits Objective Labs Result Diagrams: 12/19/19 05:35 12/21/19 06:43 Labs: Laboratory Results - last 24 hr 12/21/19 06:43 Sodium 131 L Potassium 3.6 Chloride 100 Carbon Dioxide 26 BUN 4 L Creatinine 0.51 L Estimated GFR > 60.0 BUN/Creatinine Ratio 7.8 Glucose 111 H Calcium 9.0 Assessment & Plan Assessment & Plan narrative: Acute delirium unknown etiology. Laboratory tests is and imaging have been unrevealing. Does not appear to be infectious poisoning or toxic. Does not appear to be adrenal or endocrine related. Evaluation by mental health was unrevealing. At some point patient will need a neurology consultation and evaluation and we will have to seek this as an outpatient. Discussion with social work administrator a care management and father. Patient's father does not want her to go to scared facility. He says he is going to have a caregiver but moving to their home. Will need to be discharged with home health and [facility]. Will range for this to happen tomorrow. Will work on outpatient neurological evaluation and consultation. Hypothyroidism continue with thyroid and the hospital and at home. Hypertension blood pressure is stable at this point. Disposition and plan discharge from the hospital tomorrow with home health. They do not want her to go to [facility] facility they will provide in-home home care for her and will work on neurology evaluation Quality VTE Deep Vein Thrombosis/Pulmonary Embolism Present on Admission: No
[2019-12-21] MEDS: CEFTRIAXONE 1 GM/50 ML FROZ.PIGGY IV (16:31)
[2019-12-21 17:00] VITALS: BP 151/72; PULSE 71; RESP 17; TEMP 36.2; O2SAT 98
[2019-12-21] MEDS: TRAZODONE 100 MG TABLET PO (20:49)
[2019-12-21] MEDS: SERTRALINE 50 MG TABLET PO (20:49)
[2019-12-21 20:50] VITALS: BP 142/75; PULSE 69
[2019-12-21 20:53] VITALS: BP 142/75; PULSE 69; RESP 14; TEMP 36.6; O2SAT 99
[2019-12-21 23:30] VITALS: BP 145/77; PULSE 73; RESP 16; TEMP 37.2; O2SAT 99
--- NOTE | 2019-12-21 23:33 | PC.NURSE ---
Patient oriented to self, birthdate, knew she is in hospital in [place] and knows who the President of [place] is. Breath sounds CTA with RA sat of 99%. HR irregular with rate in low 100's. Denies nausea. BT present and abdomen is soft. Is incontinent of urine; wearing incontinent brief. Able to turn self in bed. Not out of bed at this time but evening RN reports needs 2 assists + walker when up. Denies pain. Wearing bilateral calf SCD's. Fall risk score is high and bed alarm is activated.
[2019-12-22] MEDS: LEVOTHYROXINE 100 MCG TABLET 200 MCG PO (05:38)
[2019-12-22 06:03] LABS: Aldosterone/Renin Activity Rat 1.8 (0.0-30.0); Plama Renin, LC/MS/MS 1.697 ng/mL/hr (0.167-5.380)
[2019-12-22 06:34] LABS: BUN Creatinine Ratio 11.1 (6-22); Blood Urea Nitrogen 6 mg/dL (7-17); Calcium 9.2 mg/dL (8.4-10.2); Carbon Dioxide 25 mmol/L (22-32); Chloride 99 mmol/L (98-107); Estimated Glomerular Filt Rate > 60.0 mL/min (>60); Glucose 115 mg/dL (80-110); HEMOLYSIS < 15 (0-50); Sodium 130 mmol/L (137-145)
[2019-12-22 08:00] VITALS: BP 150/55; PULSE 82; RESP 16; TEMP 36.4; O2SAT 98
--- NOTE | 2019-12-22 08:09 | P.DS_ITS ---
History of Present Illness History of Present Illness Chief complaint: Altered mental status Narrative: 64-year-old female seen in the hospital this evening. Was readmitted to the hospital. She was discharged home on Saturday12/07/2019. Patient has been struggling for the last 6 months with gradual weight loss onset of nausea had elevation of liver enzymes. With the concern for potential cholecystitis with acute changes. Patient was admitted the hospital after concerns of ongoing dehydration and acute cholecystitis. Patient had an uneventful surgical course. Had fairly normal postoperative recovery. Although she continued to have some nausea as she was started on Reglan which helped with her nausea and was discharged home. Her father who is with her today says she was doing well. Other than she really was not eating much still. But seemed to be recovered about 3 days ago he noticed there was a change in her mentation. He became a little bit concerned but not too concerned. And noticed that her eating had also changed she began to not eat as well again. Today when he went to check in on her she seemed to be a little bit more confused thinking that was 2016 she was in [place]. Does not recollect her remember having the surgery. Call my nurse and patient was brought back to the emergency department. On my evaluation she recognizes me she does not know where she is add other than the hospital she thinks she may be in [place] she thinks is 2016 and December she does recognize her father who is with her. She knows my name. She is very hard historian but she does say that she is very stressed out right now. She is stressed and worried about her father who is taking care of their mother and she is worried that he was also having to take with care of her. She has a history of depression and anxiety. No history of significant mental breaks or psychotic episodes. On review of her history with her father. She has not really been taking any pain medication was prescribed hydrocodone but really did not take it. She has no history of substance abuse that I am aware of her that her father is in the never been an issue. Is not a major drinker. Every alcohol level previously has been normal. She does not admit to using that on previous examinations. Her health history is consistent with hypertension hypothyroidism recent significant weight loss and cholecystitis with gallbladder removal. Discharge Providers Provider Date of admission: 12/17/19 12:12 Discharge Date: 12/23/19 Primary care physician: Marlon Brown MD Consults: 12/15/19 14:09 Consult to Physician Urgent Comment: Consulting Provider: Marlon Brown Reason for consultation: admission Has provider been notified: Yes 12/15/19 16:59 Consult to Dietitian, Adult Routine Comment: Reason For Exam: poor food intake, wt loss 12/15/19 17:28 Consult to Dietitian, Adult Routine Comment: Reason For Exam: malnutrtion 12/16/19 08:46 Consult to Occupational Therapy Evaluate & Treat Comment: Physician Instructions: Evaluate and treat Consult to Physical Therapy Evaluate & Treat Comment: Physician Instructions: Evaluate and Treat 12/16/19 13:46 Consult to Physician Urgent Comment: Consulting Provider: Atul Mari Reason for consultation: altered mental status, history of depression and anxiety Has provider been notified: Yes 12/17/19 12:23 Consult to Dietitian, Adult Routine Comment: father needs guidance for appropriate smoothies Reason For Exam: weight loss, diabetes 12/19/19 17:57 Consult to Dietitian, Adult Routine Comment: Reason For Exam: needs nutrient rich foods. minimal intake. 12/20/19 16:39 Consult to Dietitian, Adult Routine Comment: Reason For Exam: poor oral intake Discharge provider: Marlon Brown MD Summary Hospital Course Discharge Diagnosis: Acute delirium unspecified etiology Urinary tract infection polymicrobial Severe protein calorie malnutrition Obesity Acquired hypothyroidism Essential hypertension Depression and anxiety Hospital Course: Patient was admitted to the hospital please see inpatient notes for details with acute mental status changes weakness decreased appetite inabil ity to eat and take care of herself. Patient had a significant mental status change from previous hospital discharge about a week to 10 days before. Patient underwent a workup for acute delirium. Infectious etiologies were considered patient was found to have a urinary tract infection on a catheterization culture which was treated with ceftriaxone which I do not think was the cause of her underlying acute mental status changes. No signs of sepsis or other major infectious etiology. Patient did not have adrenal causes endocrine. We ruled out toxic with laboratory testing urine drug testing salicylate testing acetaminophen. Alcohol level was normal. Liver testing was also done which sh owed a normal. Had a psychology referral to rule out underlying psychiatric diagnosis is. Patient had vitamin B12 and folic acid testing done. Those are within the normal range on the low side. During her hospital stay. Patient had fluctuation in mental status but was confused to place time patient did not remember her previous hospitalization or surgery. And does not remember day-to-day. She worked with physical therapy occupational therapy. During hospital stay patient was incontinent of urine. Had treatment of her high blood pressure her hypothyroidism. She was started on IV antibiotics for her urinary tract infection and discharged on oral antibiotics. There was long discussion with her father about patient going to senior care facility. Which I think the patient would benefit from. Father was very concerned about this due to the current outbreak. And the care provided there. He felt like he could provide better care at home with home caregiver home physical therapy and occupational therapy which will range. I am concerned about his ability to care for her at home. But he was adamant that she be discharged there which will do today. Significant likelihood patient will be readmitted. Will arrange for home medication. Will continue with vitamin B12 and folic acid. A 3 day course of antibiotics. And she will have a neurology consult as an outpatient. Exam Vital Signs (past 8 hours): Oxygen Delivery Method Room Air Oxygen Flow Rate 0 Narrative Exam Narrative: Gen.: Alert no apparent distress poor historian. She does recognize me a little bit and recognizes that she is in [place] HEENT: Pupils equal round and reactive or mucosa is moist neck is supple Cardio: S1-S2 regular rate and rhythm no murmurs appreciated. Respiratory: Lungs are clear to auscultation no wheezes or crackles normal respiratory effort. Abdomen: Soft nontender no rebound or guarding no liver spleen enlargement no appreciable hernias Extremities: Full range of motion no appreciable weakness no cyanosis or edema. Neurologic: No focal neurological deficit Objective Labs Result Diagrams: 12/19/19 05:35 12/23/19 05:25 Labs: Laboratory Results - last 24 hr 12/17/19 12/22/19 04:58 06:15 Sodium 130 L Potassium 4.0 Chloride 99 Carbon Dioxide 25 BUN 6 L Creatinine 0.54 Estimated GFR > 60.0 BUN/Creatinine Ratio 11.1 Glucose 115 H Calcium 9.2 Renin 1.697 Aldosterone 3.0 Aldosterone/Renin Ratio 1.8 Discharge Plan Discharge Plan Patient Disposition: SNF Discharge comment: will need home health and home PT Discharge orders & Medications Prescriptions: New sertraline [Zoloft] 50 mg Tablet 50 mg PO BEDTIME Qty: 90 RF: 0 cefdinir 300 mg capsule 300 mg PO BID Qty: 6 RF: 0 cyanocobalamin (vitamin B-12) [Vitamin B-12] 1,000 mcg tablet 1,000 mcg PO DAILY Qty: 90 RF: 1 folic acid 800 mcg tablet 0.8 mg PO DAILY Qty: 90 RF: 1 Continued losartan [Cozaar] 50 mg tablet 50 mg PO DAILY Qty: 90 RF: 3 trazodone 100 mg tablet See Rx Instructions .ROUTE .COMPLEX Qty: 30 RF: 11 amlodipine [Norvasc] 5 mg tablet 5 mg PO DAILY Qty: 30 RF: 3 Glucose: Home Monitoring Kit 1 kit miscellaneous DIRECTED RF: 0 Test Strips - Freestyle 1 item miscellaneous TID RF: 0 ondansetron 4 mg tablet,disintegrating 4 mg PO Q6H PRN (Reason: nausea and vomiting) Qty: 20 RF: 0 thyroid (pork) [[place] Thyroid] 120 mg tablet 120 mg PO DAILY RF: 0 Discontinued naproxen sodium [Aleve] 220 mg Tablet 1 dose PO PRN PRN (Reason: pain) RF: 0 hydrocodone-acetaminophen [[place]] 5-325 mg tablet 1 tab PO Q4H PRN (Reason: painful procedure) Qty: 14 RF: 0 metoclopramide HCl [Reglan] 10 mg tablet 10 mg PO QACHS Qty: 10 RF: 0 Follow up/Referrals: Marlon Brown MD [Primary Care Provider] - Discharge Data Primary Care Provider: Marlon Brown Discharges patient from system. Discharge Date/Time: 12/23/19 14:10 Quality VTE Deep Vein Thrombosis/Pulmonary Embolism Present on Admission: No
--- NOTE | 2019-12-22 09:15 | CM.DPC ---
Addendum entered by Talisha Hernandez LPN 12/22/19 15:20: Have spoken now with MARY KAY Vanegas who did speak with Dr. Brown earlier after he called pt's father and gave her a verbal order to cancel the d/c for today. She stated that he wanted to discuss POC further with this dc resource management planner. Have now had a conversation with Dr. Brown via his cell and discussed the issues and options. He is aware that [facility] did accept pt and has encourged the father to accept this but says he will honor the desire of father to take pt home to be cared for. Discussed Face/Face document and need for signature. He will do this tomorrow he says. A copy is in the red folder as well as the CM/DCplanning office awaiting his signature. He agreed with HH RN/PT/OT/CONVENTIONAL MORTGAGE UNDERWRITER/SLEEP TECHNICIAN/CABLE SPLICER APPRENTICE and order for same is place along with a FWW order. [facility] is updated and the order will be faxed. Spoke then at length with pt's father Mitch. Introduced self and role. Discussed all of above with Mitch noting thankfulness for everyone's concern re his daughter but his firm decision that she will best be cared for in the home setting. He has a caregiver lined up to assist. He will look at buying any equipment recommended by OT as [employer] is no longer open to serve the public during this time. Discussed need for ambulance transport home and he agrees this will be appropriate. He wishes to be updated as soon as the details are in place tomorrow and have encouraged him to call the DCPlanner on for tomorrow in the morning to check in. Mitch notes it's hard to believe that just a short time ago Christina was helping me take care of my . He understands that pt will need to see a neurologist as outpatient visit whenever she is able to physically do this and he has discussed same with Dr. Brown. P: Home tomorrow as per above. Ambulance. [facility] Follow closely with Mitch. Original Note: DCP: continued: case received. DC order noted. EMR reviewed. Received a vm from the in rehab in followup to [facility]'s referral of yesterday: decision: would not proceed to review the referral as the documentation from the therapists was for snf level of care. Reviewed EMR and yesterday's DCP note and have now followed up with a call to [facility] . They can accept pt and will plan to see her tomorrow or next day. Will look for the Face/Face document that was left for the provider to sign. Obtain orders. Fax all to [facility] . Will call pt's father when the specific details of d/c are in place, likely after Team Rounds.
--- NOTE | 2019-12-22 10:41 | PT.IPTN ---
Current Diagnoses Dehydration (12/17/19) Hypo-osmolality and hyponatremia (12/17/19) Nausea (12/17/19) Altered mental status, unspecified (12/17/19) Weakness (12/17/19) Physical Therapy Treatment Note M2 PT-IP Current Condition Start: 12/16/19 08:51 Freq: NEEDED Status: Active Protocol: Document 12/16/19 10:45 HH (Rec: 12/16/19 13:42 HH [id number]) Physical Therapy Current Condition Current Condition Evaluation Date 12/16/19 Treatment Diagnosis Acute AMS, unexplainted weight loss, generalized weakness Onset Date 3 days ago Precautions Abdominal Surgery Precautions Log Roll,Lifting Restrictions, Gait Belt above Incisional Area Weight Bearing Status Weight Bearing Status Full Weight Bearing M3 PT-IP Subjective Start: 12/16/19 08:51 Freq: NEEDED Status: Active Protocol: Document 12/22/19 10:41 CLB (Rec: 12/22/19 14:21 CLB [id number]) Subjective Physical Therapy Visit Type Type Treatment Note Visit Start Time 10:41 Visit Stop Time 11:14 Total Visit Minutes 33 Number of DIRECTOR OF RESEARCH AND DEVELOPMENT Visits 2 Physical Therapy Visit Comments Patient Comments Pt willing to get to EOB. Pt c /o back pain but did not give number. Therapy Pain Assessment Pain When Pain Assessed During Mobility Location Back Scale Used number not given M4 PT-IP Mobility and Gait Start: 12/16/19 08:51 Freq: NEEDED Status: Active Protocol: Document 12/22/19 10:41 CLB (Rec: 12/22/19 14:21 CLB [id number]) PT-Bed Mobility Assessment Rolling Type of Rolling Log Rolling,Roll to Right Level of Assist Minimal Assistance Supine to Sit Supine to Sit Moderate Assistance,1 Person Assistance,Head of Bed Elevated,Bedrails Sit to Supine Sit to Supine Contact Guard Assistance Scooting Scooting to Edge of Bed Standby Assistance Scooting Up and Down in Bed Standby Assistance PT-Transfer Assessment Comments Mobility Comments Pt stated she was afraid and refused to attempt standing even after encouragement. Pt was able to side scoot up side of bed towards HOB before performing sit-stand. Pt left in bed with all needs within reach, alarm on and SCD's on bilateral legs. Gait Assessment Comments Gait Comments pt refused. See mobility section. M5 PT-IP Objective Assessments Start: 12/16/19 08:51 Freq: NEEDED Status: Active Protocol: Document 12/16/19 10:45 HH (Rec: 12/16/19 13:42 HH [id number]) Orientation Orientation/Cognition Level of Alertness Confusional State Orientation Name Language Function Ability No Deficits Noted Safety Awareness Decreased Safety Awareness Comments Pt is delirius and but able to follow simple commands. She was only able to recall her name and parents' names. Gross Range of Motion Upper Extremity ROM Assessment Within Functional Limits Lower Extremity ROM Assessment Within Functional Limits Strength Upper Extremity Strength Assessment Within Functional Limits Lower Extremity Strength Assessment Within Functional Limits M6 PT-IP Treatment Start: 12/16/19 08:51 Freq: NEEDED Status: Active Protocol: Document 12/22/19 10:41 CLB (Rec: 12/22/19 14:21 CLB [id number]) Physical Therapy Treatment Exercises Exercises Ankle Pumps,Quad Sets,Heel Slides M7 PT-IP Assessment and Plan Start: 12/16/19 08:51 Freq: NEEDED Status: Active Protocol: Document 12/22/19 10:41 CLB (Rec: 12/22/19 14:21 CLB [id number]) PT Summary Assessment and Plan Summary Impairments Strength,Balance,Coordination, Cognition,Bed Mobility, Transfers,Gait,Activity Tolerance Progress Towards Goals Slow Progress due to Medical Issues,Slow Progress due to Activity Tolerance Assessment Summary Pt willing to work with PT/OT today but refused standing stating she was unable and afraid. Pt BP in sitting 139/ 86 pt stated she was lightheaded and BP taken a second time 130/55. Pt then assisted back to bed. Pt with decreased sensation of LLE and LUE with LLE jerking with light touch of medial knee and thigh. Pt unable to fully extend left knee. Goals Bed Mobility Goal Standby Assistance Transfer Goal Standby Assistance,Front Wheeled Walker Gait Goal Standby Assistance,Front Wheel Walker Gait Distance 200 Other Goals 3 STEPs with B rails for front entrance 3 STEPs with L rail for garage entrance Days to Meet Goals 5 Frequency of Treatment Frequency Of Treatment Once a Day Treatment Plan Physical Therapy Treatment Plan Bed Mobility Training,Transfer Training,Gait Training, Therapeutic Exercise,Balance Retraining,Discharge Planning Other Recommendations and Next Treatment bed exercises if unwilling/ Focus unable to get out of bed Recommendations To Nursing Amount of Assist Needed 2 Person Assist Discharge Recommendations PT Discharge Recommendations SNF Rehab Equipment Needed for Home Before FWW if pt goes home Discharge Transportation Needs at Discharge Wheelchair/Cabulance
[2019-12-22] MEDS: ACETAMINOPHEN 325 MG TABLET 650 MG PO (12:05)
[2019-12-22 12:06] VITALS: BP 122/66; PULSE 77
[2019-12-22] MEDS: ENOXAPARIN 40 MG/0.4 ML SYRINGE SUBCUT (12:07)
[2019-12-22] MEDS: MULTIVITAMIN 1 TABLET 1 TAB PO (12:07)
[2019-12-22] MEDS: AMLODIPINE 5 MG TABLET 10 MG PO (12:07)
[2019-12-22] MEDS: POTASSIUM CHLORIDE 20 MEQ TAB PO (12:12)
[2019-12-22] MEDS: SODIUM CHLORIDE 0.9% FLUSH 10 ML IV ×3 (12:12→21:07)
[2019-12-22] MEDS: CYANOCOBALAMIN 1,000 MCG/ML VIAL 1000 MCG IM (12:23)
--- NOTE | 2019-12-22 13:49 | OT.IP.TRT ---
Current Diagnoses Dehydration (12/17/19) Hypo-osmolality and hyponatremia (12/17/19) Nausea (12/17/19) Altered mental status, unspecified (12/17/19) Weakness (12/17/19) Occupational Therapy Treatment Note M2 OT-IP Current Condition Start: 12/16/19 13:23 Freq: Status: Active Protocol: Document 12/16/19 11:50 PJM (Rec: 12/16/19 13:57 PJM [id number]) Occupational Therapy Current Condition Current Condition Evaluation Date 12/16/19 Treatment Diagnosis decreased cognition, act tolerance, self care with dx unknown Diagnosis Onset Date 12/15/19 Post Operative Precautions Other Precautions fall risk, bed/chair alarm, confusion M3 OT- IP Subjective and Pain Start: 12/16/19 13:23 Freq: Status: Active Protocol: Document 12/22/19 13:52 CCC (Rec: 12/22/19 14:15 [facility] [id number]) OT- Subjective Occupational Therapy Visit Type Type Treatment Note Visit Start Time 10:41 Visit Stop Time 11:14 Total Visit Minutes 33 Occupational Therapy Visit Comments Patient Comments Pt not wanting to get up and after lots of encouragement agreed to try to sit up at this end of the bed and then possibly try standing. Patient/Caregiver Goals Pt states, I do not know, I have not thought that far. OT Pain Assessment Pain When Pain Assessed During Mobility Pain Present Pain Present Pain Reported Location Back Pain Behaviors Facial Grimacing,Holding Area, Wincing M5 OT- IP IADL's Start: 12/16/19 13:23 Freq: Status: Active Protocol: Document 12/16/19 11:50 PJM (Rec: 12/16/19 13:57 PJM [id number]) OT-Instrumental Activities of Daily Living Deficits IADL Deficits Identified Deficits Home Safety Awareness Awareness of Need for Assistance at Home Decreased Awareness Ability to Problem Solve Emergency Unable to Problem Solve Situations Medication Management Medication Management Caregiver Administers Medication Management Comments pt needs total assist at present due to confusion and short term memeory deficits Money Management Money Management Caregiver Provides Assistance Money Management Comments pt needs total assist at present due to confusion and short term memeory deficits Meal Preparation Meal Preparation Caregiver Provides Assist Meal Preparation Comments pt needs total assist at present due to confusion and short term memeory deficits Small Boat Engineer Small Boat Engineer Caregiver Provides Assist Small Boat Engineer Comments pt needs total assist at present due to confusion and short term memeory deficits Driving Driving Concerns Identified Regarding Safety Driving Comments pt needs total assist at present due to confusion and short term memory deficits M6 OT- IP Functional Cognition Start: 12/16/19 13:23 Freq: Status: Active Protocol: Document 12/22/19 13:52 [facility] (Rec: 12/22/19 14:15 [facility] [id number]) Cognitive Factors Limiting Selfcare Function Cognitive Ability Level of Alertness Alert Patient Orientation Name Attention Span Ability Capable of Focused Attention, Capable of Sustained Attention Ability to Follow Commands Able to Follow One Step Commands Memory Description Short Term Impaired,Detention Impaired,Working Impaired Safety Awareness Underestimates Need for Assistance Problem Solving Ability Unable to Identify Errors, Needs Assist to Identify Solutions Executive Function Ability Unable to Filter Distractions, Unable to Make Plans,Unable to Remember Details Cognitive Comments Cognitive Assessment Comments Pt poor insight to her deficits and repeated sates, I do not know, I just can not do this. M7 OT- IP Mobility and Balance Start: 12/16/19 13:23 Freq: Status: Active Protocol: Document 12/22/19 13:52 [facility] (Rec: 12/22/19 14:15 [facility] [id number]) OT- Bed Mobility Assessment Supine to Sit Supine to Sit Assist Moderate Assistance,1 Person Assistance Sit to Supine Sit to Supine Assist Moderate Assistance,1 Person Assistance OT-Transfer Assessment Comments Mobility Comments Pt today needing MOD x 1 for sit to supine and supine to sit. Pt needing step by step commands for hand placement and what to do. Attempted to stand and pt unable to stand noted left leg buckling during attempt to stand with FWW and BUSINESS DATA ANALYST. Pt however able to scoot up on the bed sideways given vc. Pt not able to coordinate moving her trunk and legs at the same time to help get back to bed and needing MAX a for her legs. OT- Gait Assessment Comments Gait Ability Comments Pt not even able to stand today. OT- Balance Assessment Sitting Balance and Reactions Static Sitting Balance Ability Good M8 OT- IP Objective Assessments Start: 12/16/19 13:23 Freq: Status: Active Protocol: Document 12/16/19 11:50 PJM (Rec: 12/16/19 13:57 PJM [id number]) OT Gross Range of Motion Upper Extremity Range of Motion Assessment Within Functional Limits OT Strength Upper Extremity Strength Assessment Within Functional Limits Hand Retail Security Professional Strength Hand Dominance Right OT- Coordination Assessment Comments Coordination Comments BUE WFL OT-Muscle Tone Assessment Muscle Tone WNL Yes OT Sensation Assessment Comments Summary Comments pt detects lt touch in BUE's Edema Edema Absent M9 OT- IP Assessment and Plan Start: 12/16/19 13:23 Freq: Status: Active Protocol: Document 12/22/19 13:52 [facility] (Rec: 12/22/19 14:15 [facility] [id number]) OT Summary Assessment and Plan Potential Rehabilitation Potential Fair Analytic Complexity at Evaluation Low Summary OT Impairments Functional Cognition, Functional Mobility,Dressing, Toileting,Bathing,Toilet Transfers,Shower Transfers, Activity Tolerance Progress Towards Goals Slow Progress due to Pain,Slow Progress due to Medical Issues,Slow Progress due to Activity Tolerance,Slow Progress due to Cognition Assessment Summary Pt complaining of back pain today and noted decreased sensation of left arm and leg versus right side. At times pt's responses were inconsistent as pt having difficulty following directions, and with word finding stated pinky when versus index or pointer finger . Pt still far from baseline and would require 24/7 assist versus skilled rehab. Discharge Recommendations OT Discharge Recommendations SNF Rehab Home Equipment Needs shower seat Transportation Needs at Discharge Wheelchair/Cabulance
--- NOTE | 2019-12-22 14:03 | DIET.PN ---
Dietary Progress Note 1. Provided information on Diabetes and Carb consistent diet. 2. Provided information on creating high protein, carb consistent smoothies. Instructions and references provided. 3. Provided this RD's contact information for patients father to contact me with any further questions following up with our previous conversation. 4. Provided tube feeding recommendations. Will provide bolus feeding recommendations if pt plans to discharge on home tube feeding.
[2019-12-22] MEDS: CEFTRIAXONE 1 GM/50 ML FROZ.PIGGY IV (15:50)
[2019-12-22 15:56] VITALS: BP 145/65; PULSE 65; RESP 16; TEMP 36.1; O2SAT 100
--- NOTE | 2019-12-22 16:31 | PC.NURSE ---
Shift summary: Late entry Oriented to self/age/birthdate and sometimes place. Calm and cooperative. Minimal appetite/thirst despite PAYROLL ASSISTANT assisting her with both meals today. Lungs CTA, dim bases. Room air. HRR to auscultation. Q2H reposition throughout the day. No void this shift. Bladder scans mid-day and at end of shift both showed 300 ml. Patient denied urge to void. This com writer spoke with Dr Brown and let him know she didn't void for us. No new orders other than to encourage PO fluids as much as possible and monitor for UOP- jennifer shift MARY KAY Mohan and MATILDE Palencia both aware of the same. Patient did not get OOB at all today despite PT/OT making an attempt. Discharge home cancelled, plan is home tomorrow with HH/PT/OT, etc. Call light within reach, fall precautions in place.
--- NOTE | 2019-12-22 17:08 | PC.NURSE ---
Addendum entered by Macie Meyer R.N. 12/22/19 21:47: Pt unable to void. Bladder scan =425cc In/Out cath done for 850cc clear urine returned. HL intact. CBG @ HS 136, no S/S required. Call light w/in reach, bed alarm on for pt safety. Continue w/plan of care,. Original Note: Pt resting quietly after eating small amount of dinner Oriented to self and birthday. HL RAC intact/patent. Lungs diminished at bases, SpO2 95% RA Call light w/in reach, bed alarm on for pt safety.
[2019-12-22 20:10] VITALS: BP 145/65
[2019-12-22] MEDS: SERTRALINE 50 MG TABLET PO (20:10)
[2019-12-22] MEDS: LOSARTAN 50 MG TABLET PO (20:10)
[2019-12-22] MEDS: TRAZODONE 100 MG TABLET PO (20:10)
[2019-12-23 00:29] VITALS: BP 129/65; PULSE 81; RESP 16; TEMP 36.6; O2SAT 99
[2019-12-23 05:49] LABS: BUN Creatinine Ratio 12.3 (6-22); Blood Urea Nitrogen 7 mg/dL (7-17); Calcium 9.5 mg/dL (8.4-10.2); Carbon Dioxide 28 mmol/L (22-32); Chloride 100 mmol/L (98-107); Estimated Glomerular Filt Rate > 60.0 mL/min (>60); Glucose 121 mg/dL (80-110); HEMOLYSIS 16 (0-50); Potassium 4.6 mmol/L (3.4-5.1); Sodium 132 mmol/L (137-145)
[2019-12-23] MEDS: LEVOTHYROXINE 100 MCG TABLET 200 MCG PO (06:01)
--- NOTE | 2019-12-23 07:00 | PC.NURSE ---
Up to the BSC with 2 PA max assist sat in the BSC x 10 mins. no void. Bladdr scanned 754 ml. Ordered noted to In & out catn if BS greater than 1000 cc. Pt. denies any discomfort, Will report to day RN.
--- NOTE | 2019-12-23 08:35 | CM.DPC ---
DCP Cont: Spoke to nurse, Emily, and stated that patient's father is to come in for transfer training, as requested by Dr. Brown. At this time, according to notes, plan is for home with home health, and father was pursuing caregivers i the home. Went ahead and left a message with [facility] in case father is not able to assist with transfers with P.T, since [facility] has initially accepted patient. P: DCP will follow closely. Patient should be able to discharge home with [facility], pending transfer training with P.T, and father. Donna Dee RN/Consumer Studies Professor
[2019-12-23 09:25] VITALS: BP 153/69; PULSE 66; RESP 16; TEMP 36.1; O2SAT 98
[2019-12-23] MEDS: AMLODIPINE 5 MG TABLET 10 MG PO (10:40)
[2019-12-23] MEDS: ENOXAPARIN 40 MG/0.4 ML SYRINGE SUBCUT (10:40)
[2019-12-23] MEDS: MULTIVITAMIN 1 TABLET 1 TAB PO (10:41)
[2019-12-23] MEDS: POTASSIUM CHLORIDE 20 MEQ TAB PO (10:42)
[2019-12-23] MEDS: LOSARTAN 50 MG TABLET PO (10:42)
[2019-12-23] MEDS: ACETAMINOPHEN 325 MG TABLET 650 MG PO (10:42)
[2019-12-23] MEDS: SODIUM CHLORIDE 0.9% FLUSH 10 ML IV (10:42)
--- NOTE | 2019-12-23 11:30 | CM.DPC ---
Addendum entered by Donna Dee R.N. 12/23/19 14:02: Continued to attempt transportation. Had Meghana, supervisor car installations, also intervene. She was able to also contact [facility], regarding discharge. Stated that she did speak to Franci, who stated that patient could go via [employer] [facility] Went ahead and set up transportation. Voucher also completed, for taxi. They stated that they could picker / packer patient in approximately 10 minutes. Went ahead and updated nurse, Emily, who is getting patient ready. Included her packet with orders and PASSR. Patient was taken downstairs to go into cab. Addendum entered by Donna Dee R.N. 12/23/19 12:40: Spoke to Franci at [facility], and she has been attempting transportation. Stated that [employer] can only do after 1500. She stated that she would attempt [employer]. This case hardener called [facility], and they stated that they could not picker / packer patient until well after 1530. Left another message with Franci at [facility]. Other option may be taxi. Original Note: DCP Cont: Attempted to get patient's father to come in for transfer training, for P.T. had been in touch with him. He had mentioned that he needed to have a caregiver come over and stay with his , for she has dementia. This case hardener called Mitch, patient's father back. Mitch stated, no one told me that she can't go to the bathroom on her own, and can barely walk. Discussed other options, and mentioned that [facility] can accept patient today, as long as it is before 2:00. He stated, how come she can't go to [facility]. Let him know that [facility] can't accept patient at this time, and that [facility] is the only option. stated, I want to talk to Dr. Brown first, before she goes anywhere. Myrna from O.T. was going in to talk to patient about her needs for skilled, and to see if she would be consenting to this. According to P.T. and nurse, Emily, patient needs cueing for all talks, and encouragement to get out of bed. She did get up to use the bathroom with encouragement. Spoke to Dr. Stephanie Bowen's nurse, who stated that she would get in touch with patient's father, and have Dr. Brown write orders. Dr. Brown is here, he signed med sheets. Asked him if he would call father, Mitch, and stated, he would. Med sheets signed, will complete PASSR. Left a message with Franci at [facility], will try again if no response within the next half hour. P: Patient is to be discharged to [facility] today, but pending call back from Franci. Donna Dee RN/Rides Supervisor
--- NOTE | 2019-12-23 11:34 | PT.IPTN ---
Current Diagnoses Dehydration (12/17/19) Hypo-osmolality and hyponatremia (12/17/19) Nausea (12/17/19) Altered mental status, unspecified (12/17/19) Weakness (12/17/19) Physical Therapy Treatment Note M2 PT-IP Current Condition Start: 12/16/19 08:51 Freq: NEEDED Status: Active Protocol: Document 12/16/19 10:45 HH (Rec: 12/16/19 13:42 HH [id number]) Physical Therapy Current Condition Current Condition Evaluation Date 12/16/19 Treatment Diagnosis Acute AMS, unexplainted weight loss, generalized weakness Onset Date 3 days ago Precautions Abdominal Surgery Precautions Log Roll,Lifting Restrictions, Gait Belt above Incisional Area Weight Bearing Status Weight Bearing Status Full Weight Bearing M3 PT-IP Subjective Start: 12/16/19 08:51 Freq: NEEDED Status: Active Protocol: Document 12/23/19 10:10 LJ (Rec: 12/23/19 11:34 LJ [email or web address]) Subjective Physical Therapy Visit Type Type Treatment Note Visit Start Time 10:10 Visit Stop Time 10:33 Total Visit Minutes 23 Notes Pt sitting on toilet upon arrival. Ambulated with nursing to toilet several minutes earlier Number of BLIND HOOKER Visits 3 Physical Therapy Visit Comments Patient Comments Pt confused and not wanting to get up off toilet M4 PT-IP Mobility and Gait Start: 12/16/19 08:51 Freq: NEEDED Status: Active Protocol: Document 12/23/19 10:10 LJ (Rec: 12/23/19 11:34 LJ [email or web address]) PT-Transfer Assessment Sit to and From Stand Sit to and from Stand Minimal Assistance,1 Person Assistance,Use of Upper Extremities Equipment Transfer Assistive Device Gait Belt,Front Wheeled Walker Orthotic/Prosthetic Devices or Brace: No Transfers Transfer Destination Chair Transfer Technique pt ambulated with FWW Transfer Ability Level of Assist Minimal Assistance,1 Person Assistance,Use of Upper Extremities Comments Mobility Comments Pt stating she was not ready to stand up and was afraid. Eventually, with encouragement and cueing, pt was able to stand Maddy-CGA. Stood in one place for brief to be pulled up. Pt ambulated to chair and turned around to position herself in front of chair. With cueing, she reached back and lowered herself onto edge of chair. Repositioning and scooting back required which she accomplished by herself pushing up from the chair arm rests and scooting back. Gait Assessment Gait Gait Assistance Required: Contact Guard Assist,Minimum Assistance,1 Person Assist Distance (Feet) 10 Able to Maintain Weight Bearing Status Yes During Gait Assistive Devices Assistive Device Gait Belt,Front Wheeled Walker Orthotic/Prosthetic Devices or Brace: No Comments Gait Comments Pt required cueing for FWW management and hand placement. Flexed trunk and shuffling steps from toilet to chair. No LOB. Tends to push FWW too far in front of herself M5 PT-IP Objective Assessments Start: 12/16/19 08:51 Freq: NEEDED Status: Active Protocol: Document 12/16/19 10:45 HH (Rec: 12/16/19 13:42 HH [id number]) Orientation Orientation/Cognition Level of Alertness Confusional State Orientation Name Language Function Ability No Deficits Noted Safety Awareness Decreased Safety Awareness Comments Pt is delirius and but able to follow simple commands. She was only able to recall her name and parents' names. Gross Range of Motion Upper Extremity ROM Assessment Within Functional Limits Lower Extremity ROM Assessment Within Functional Limits Strength Upper Extremity Strength Assessment Within Functional Limits Lower Extremity Strength Assessment Within Functional Limits M6 PT-IP Treatment Start: 12/16/19 08:51 Freq: NEEDED Status: Active Protocol: Document 12/23/19 10:10 LJ (Rec: 12/23/19 11:34 [email or web address]) Physical Therapy Treatment Exercises Exercises Ankle Pumps,Gluteal Sets,Quad Sets Education Education Provided Safety M7 PT-IP Assessment and Plan Start: 12/16/19 08:51 Freq: NEEDED Status: Active Protocol: Document 12/23/19 10:10 LJ (Rec: 12/23/19 11:34 [email or web address]) PT Summary Assessment and Plan Summary Impairments Strength,Balance,Coordination, Cognition,Bed Mobility, Transfers,Gait,Activity Tolerance Progress Towards Goals Slow Progress due to Medical Issues,Slow Progress due to Activity Tolerance Assessment Summary Pt appears fearful but more cooperative than prior sessions. She has the strength to ambulate but lacks motivation and confidence. Encouraged pt to walk around room but she refused. Needs assist with managing FWW and standing upright. With additional mobility she could improve strength, gait quality, and distance. Goals Bed Mobility Goal Standby Assistance Transfer Goal Standby Assistance,Front Wheeled Walker Gait Goal Standby Assistance,Front Wheel Walker Gait Distance 200 Other Goals 3 STEPs with B rails for front entrance 3 STEPs with L rail for garage entrance Days to Meet Goals 5 Frequency of Treatment Frequency Of Treatment Once a Day Treatment Plan Physical Therapy Treatment Plan Bed Mobility Training,Transfer Training,Gait Training, Therapeutic Exercise,Balance Retraining,Discharge Planning Other Recommendations and Next Treatment stair and caregiver training Focus if D/C home. Recommendations To Nursing Amount of Assist Needed 1 Person Assist Discharge Recommendations PT Discharge Recommendations SNF Rehab Equipment Needed for Home Before FWW if pt goes home Discharge Transportation Needs at Discharge Wheelchair/Cabulance
--- NOTE | 2019-12-23 11:45 | OT.IP.TRT ---
Current Diagnoses Dehydration (12/17/19) Hypo-osmolality and hyponatremia (12/17/19) Nausea (12/17/19) Altered mental status, unspecified (12/17/19) Weakness (12/17/19) Occupational Therapy Treatment Note M3 OT- IP Subjective and Pain Start: 12/16/19 13:23 Freq: Status: Active Protocol: Document 12/23/19 11:45 PJM (Rec: 12/23/19 16:18 [facility] [id number]) OT- Subjective Occupational Therapy Visit Type Type Treatment Note Visit Start Time 11:05 Visit Stop Time 11:45 Total Visit Minutes 40 Occupational Therapy Visit Comments Patient Comments I won't do that. I don't want to do it. Patient/Caregiver Goals pt unable to verbalize goal at this time due to cognitive status OT Pain Assessment Pain When Pain Assessed At Rest Pain Present Pain Present Pain Reported FLACC Pain Scale Face Occasional grimace/frown Legs Uneasy, restless, tense Activity Squirming,shifting Cry No cry (awake or asleep) Consolability Reassurable with touch FLACC Total 4 Location Back Intensity 4 Scale Used Numeric (1 - 10) Description Aching,Chronic M4 OT- IP ADL's Start: 12/16/19 13:23 Freq: Status: Active Protocol: Document 12/23/19 11:45 PJM (Rec: 12/23/19 16:18 [facility] [id number]) OT [id number] Comments OT Self-Feeding Comments pt physically able to feed self but has poor appetite and poor attention to task, needs verbal cues and coaxing to increase oral intake OT ADL-Grooming Comments OT Grooming Comments did not occur this session; pt declines to brush hair OT ADL-Oral Care Comments Oral Care Comments pt declines this session OT ADL-Dressing General Eval Upper Body Dressing Ability Minimal Assistance Comments OT Dressing Comments min assist with gown management OT ADL-Toileting General Evaluation Toileting Ability Standby Assistance Comments OT Toileting Comments pt up to toilet with P.T. this session and was SBA, see P.T. note OT ADL-Bathing Bathing Type Bathing Type Shower Comments OT Bathing Comments Pt walked into bathroom earlier this AM using FWW with P.T. Pt adamantly declining to shower this session. M6 OT- IP Functional Cognition Start: 12/16/19 13:23 Freq: Status: Active Protocol: Document 12/23/19 11:45 PJM (Rec: 12/23/19 16:18 [facility] [id number]) Cognitive Factors Limiting Selfcare Function Cognitive Ability Level of Alertness Alert Attention Span Ability Capable of Focused Attention, Unable to Sustain Attention Ability to Follow Commands Able to Follow One Step Commands with Increased Time, Able to Follow One Step Commands with Repetition Memory Description Short Term Impaired Problem Solving Ability Unable to Identify Errors, Needs Assist to Identify Solutions Executive Function Ability Unable to Hold Focus,Unable to Filter Distractions,Unable to Make Plans,Unable to Organize Plans,Unable to Remember Details,Unable to Integrate Past Experience With Present Action Abstract Thinking Ability Unable to Make Generalizations ,Unable to Draw Logical Conclusions,Unable to Be Adaptable in Thinking,Unable to Apply Concepts to New Situations Cognitive Comments Cognitive Assessment Comments Pt more alert and verbal than last week. She is able to recall her home phone number pt unable to effectively push buttons on phone to dial the phone to speak to her father. Pt admits to significant anxiety but unable to specify reason for it. OT- Vision and Hearing OT- Hearing Assessment OT- Hearing Assessment WFL OT- Vision Assessment Visual Acuity WFL Vision Assessment Comments Pt able to read wall clock M7 OT- IP Mobility and Balance Start: 12/16/19 13:23 Freq: Status: Active Protocol: Document 12/23/19 11:45 PJM (Rec: 12/23/19 16:18 [facility] [id number]) OT-Transfer Assessment Comments Mobility Comments Pt adamantly refusing to mobilize out of chair this session. OT- Gait Assessment Comments Gait Ability Comments see P.T. note OT- Balance Assessment Sitting Balance and Reactions Static Sitting Balance Ability Good Dynamic Sitting Balance Ability Fair Comments Other Balance Tests/Deviations/Treatment seated in recliner : M9 OT- IP Assessment and Plan Start: 12/16/19 13:23 Freq: Status: Active Protocol: Document 12/23/19 11:45 PJM (Rec: 12/23/19 16:18 [facility] [id number]) OT Summary Assessment and Plan Potential Rehabilitation Potential Fair Summary OT Impairments Strength,Balance,Functional Cognition,Functional Mobility, Self-Feeding,Grooming,Dressing ,Toileting,Bathing,Toilet Transfers,Shower Transfers, Activity Tolerance Progress Towards Goals Slow Progress due to Activity Tolerance,Slow Progress due to Cognition Assessment Summary Pt more alert and verbal than last week. Pt is very self limiting and needs extensive coaxing to initiate any out of bed activity including basic tasks such as getting out of bed to use BSC or ambulate to bathroom. She has been incontinent or urine in bed at times. Pt did walk to bathroom with P.T. this AM, but then adamantly refused to get up again for shower. She is able to recall her home phone number pt unable to effectively push buttons on phone to dial the phone to speak to her father. Pt admits to significant anxiety but unable to specify reason for it. She is unable to identify nay coping strategies with concrete thinking noted. She expresses some interest in returning home but cannot initiate getting out of bed or chair for self care activities needed for successful transition home with her elderly father. No focal weakness noted and pt's brain MRI negative. Suspect strong psych overlay. Discussed pt's case with rehabilitation case coordinator, RN, pt's father, Mitch , and Dr Brown. Pt to d/c to SNF today per rehabilitation case coordinator. Discharge Recommendations OT Discharge Recommendations SNF Rehab Transportation Needs at Discharge Wheelchair/Cabulance
--- NOTE | 2019-12-23 14:34 | PC.NURSE ---
Discharge PIV removed prior to d/c. Pt c/o pain in back this AM, medicated with tylenol, states this helped her pain. She is difficult to motivate to mobilize. She was able to get up this AM to walk to bathroom with FWW and 1-2 person assist but then once in chair she refused to get out to go take a shower. She has very poor PO intake, had half a bottle of glucerna and 2 bites of banana this AM, no lunch. Pt left in w/c with FACTORY ASSEMBLER and RN escort to [id number] who is taking pt to [facility]. Report called to Stanley there. Pt took her belongings with her.
== END 2019-12-23 14:10 | DRG 947 ==
LOC: ED 13:29 → AC 14:05
PROVIDERS: Family Medicine; Admitting Provider Family Medicine; Emergency Provider Emergency Medicine; PCP Family Medicine; Visit Provider Family Medicine
DX: R41.0 Disorientation, unspecified (principal); E43 Unspecified severe protein-calorie malnutrition; E87.1 Hypo-osmolality and hyponatremia; N39.0 Urinary tract infection, site not specified; Z16.11 Resistance to penicillins; E86.0 Dehydration; Z68.28 Body mass index [BMI] 28.0-28.9, adult; E87.6 Hypokalemia; R33.9 Retention of urine, unspecified; B96.20 Unspecified Escherichia coli [E. coli] as the cause of diseases classified elsewhere; F32.9 Major depressive disorder, single episode, unspecified; E11.9 Type 2 diabetes mellitus without complications; I10 Essential (primary) hypertension; Z87.891 Personal history of nicotine dependence; E03.9 Hypothyroidism, unspecified; F41.9 Anxiety disorder, unspecified
CPT/HCPCS: 36415; 70450; 70548; 70553; 80048; 80053; 80305; 80320; 80329; 81003; 81015; 82088; 82140; 82533; 82550; 82607; 82728; 82746; 82962; 83690; 83735; 83930; 83935; 84145; 84155; 84165; 84244; 84300; 84443; 84484; 85025; 87077; 87086; 87147; 87186; 93005; 96361; 96374; 97110; 97116; 97129; 97161; 97165; 97530; 97535; 99223; 99232; 99233; 99238; 99285; G0378; A9579; G0480; J0744; J1650; J3420

== ENCOUNTER → 2021-06-29 15:59 | Outpatient (CLI) | payer MEDICARE, MEDICAID, SELFPAY ==
[2019-12-15 15:31] VITALS: BMI 28.9
[2021-06-29 18:04] LABS: Thyroid Stimulating Hormone 6.97 uIU/mL (0.47-4.68)
[2021-06-29 18:05] LABS: TSH w/ Reflex to FT4 6.88 uIU/mL (0.47-4.68)
[2021-06-29 18:43] LABS: Free T4, Direct Thyroxine 0.82 ng/dL (0.78-2.19)
== END ==
PROVIDERS: PCP Family Medicine; Referring Provider Internal Medicine; Visit Provider Internal Medicine
DX: E03.9 Hypothyroidism, unspecified (principal)
CPT/HCPCS: 36415; 84439; 84443

== ENCOUNTER → 2023-01-09 08:29 | Outpatient (CLI) | payer MEDICARE, MEDICAID, SELFPAY ==
[2019-12-15 15:31] VITALS: BMI 28.9
[2023-01-09 09:19] LABS: Add Manual Diff / Slide Review NO; Basophils Absolute Auto 0 /uL (0-100); Eosinophils Absolute Auto 100 /uL (0-450); Eosinophils Percent Auto 3.1 % (2-4); Hematocrit 39.4 % (36-46); Hemoglobin 13.3 g/dL (12.0-16.0); Lymphocytes Absolute Auto 1300 /uL (1100-4500); Lymphocytes Percent Auto 32.5 % (25-40); Mean Corpuscular HGB Conc 33.8 % (30-36); Mean Corpuscular Hemoglobin 31.4 PG (26-34); Monocytes Absolute Auto 200 /uL (0-900); Monocytes Percent Auto 4.8 % (3-14); Neutrophils Absolute Auto 2400 /uL (1500-7000); Neutrophils Percent Auto 58.6 % (50-75); Platelet Count 174 X10^3/uL (150-400); Red Blood Cell Count 4.24 X10^6/uL (4.0-5.2); Red Cell Distribution Width 12.9 % (11.6-14.8); White Blood Cell Count 4.1 X10^3/uL (4.5-11.0)
[2023-01-09 10:08] LABS: Alanine Aminotransferase 28 IU/L (<35); Albumin 4.1 g/dL (3.5-5.0); Albumin Globulin Ratio 1.5 (1.0-2.8); Alkaline Phosphatase 65 U/L (38-126); Aspartate Aminotransferase 32 IU/L (14-36); BUN Creatinine Ratio 17.3 (6-22); Bilirubin Total 0.3 mg/dL (0.2-1.3); Blood Urea Nitrogen 13 mg/dL (7-17); Calcium 8.6 mg/dL (8.4-10.2); Carbon Dioxide 25 mmol/L (22-32); Chloride 104 mmol/L (98-107); Cholesterol 253 mg/dL (140-199); Estimated Glomerular Filt Rate > 60 mL/min (>60); Globulin 2.8 g/dL (1.7-4.1); Glucose 122 mg/dL (80-110); HDL Cholesterol 70 mg/dL (40-60); HEMOLYSIS < 15 (0-50); LDL Cholesterol Calculated 111 mg/dL (<100); Sodium 140 mmol/L (137-145); Total Protein 6.9 g/dL (6.3-8.2); Triglycerides 359 mg/dL (35-150)
[2023-01-09 10:27] LABS: TSH w/ Reflex to FT4 9.58 uIU/mL (0.47-4.68)
[2023-01-09 10:54] LABS: Free T4, Direct Thyroxine 0.76 ng/dL (0.78-2.19)
[2023-01-10 06:10] LABS: x Labcorp Estim. Avg Glu (eAG) 131 mg/dL (.); x Labcorp Hemoglobin A1c 6.2 % (4.8-5.6)
== END ==
PROVIDERS: PCP Family Medicine; Referring Provider Family Medicine; Visit Provider Family Medicine
DX: E78.1 Pure hyperglyceridemia (principal); R79.89 Other specified abnormal findings of blood chemistry; E78.5 Hyperlipidemia, unspecified; E11.9 Type 2 diabetes mellitus without complications; E66.9 Obesity, unspecified; E03.9 Hypothyroidism, unspecified
CPT/HCPCS: 36415; 80053; 80061; 83036; 84439; 84443; 85025

== ENCOUNTER → 2023-04-22 09:02 | Outpatient (CLI) | payer MEDICARE, MEDICAID, SELFPAY ==
[2019-12-15 15:31] VITALS: BMI 28.9
[2023-04-22 11:04] LABS: TSH w/ Reflex to FT4 1.12 uIU/mL (0.47-4.68)
== END ==
PROVIDERS: PCP Family Medicine; Referring Provider Family Medicine; Visit Provider Family Medicine
DX: R41.82 Altered mental status, unspecified (principal)
CPT/HCPCS: 36415; 84443

== ENCOUNTER → 2023-09-04 09:11 | Outpatient (CLI) | payer MEDICARE, MEDICAID, SELFPAY ==
[2019-12-15 15:31] VITALS: BMI 28.9
== END ==
PROVIDERS: PCP Family Medicine; Visit Provider Nurse Practitioner Family
DX: L98.9 Disorder of the skin and subcutaneous tissue, unspecified (principal)
CPT/HCPCS: 87070; 87077; 87147; 87186; 87205

== ENCOUNTER → 2023-10-22 08:06 | Outpatient (CLI) | payer MEDICARE, MEDICAID, SELFPAY ==
[2019-12-15 15:31] VITALS: BMI 28.9
[2023-10-22 09:14] LABS: BUN Creatinine Ratio 17.2 (6-22); Blood Urea Nitrogen 10 mg/dL (7-17); Calcium 9.5 mg/dL (8.4-10.2); Carbon Dioxide 29 mmol/L (22-32); Chloride 103 mmol/L (98-107); Cholesterol 245 mg/dL (140-199); Estimated Glomerular Filt Rate > 60 mL/min (>60); Glucose 96 mg/dL (80-110); HEMOLYSIS < 15 (0-50); Potassium 4.4 mmol/L (3.4-5.1); Sodium 137 mmol/L (137-145); Triglycerides 131 mg/dL (35-150)
[2023-10-22 09:18] LABS: Hemoglobin A1C% w Est Avg Glu 5.3 % (4.0-6.0)
[2023-10-22 09:33] LABS: HDL Cholesterol 122 mg/dL (40-60); LDL Cholesterol Calculated 97 mg/dL (<100)
[2023-10-22 10:13] LABS: Folate 16.1 ng/mL (2.76-20.0); Vitamin B12 440 pg/mL (239-931)
== END ==
PROVIDERS: PCP Family Medicine; Referring Provider Family Medicine; Visit Provider Family Medicine
DX: R73.09 Other abnormal glucose (principal); E78.5 Hyperlipidemia, unspecified; D64.9 Anemia, unspecified; E51.2 Wernicke's encephalopathy
CPT/HCPCS: 36415; 80048; 80061; 82607; 82746; 83036

== ENCOUNTER → 2023-10-28 09:51 | Outpatient (CLI) | payer MEDICARE, MEDICAID, SELFPAY ==
[2019-12-15 15:31] VITALS: BMI 28.9
[2023-10-29 18:03] LABS: Microalbumin Urine Random 0.6 mg/dL (0-1.6)
[2023-10-29 18:45] LABS: Creatinine Urine Random 133.8 mg/dL; Microalbumi Creatinin Ratio Ur 4.4 ug/mg CR (<30)
== END ==
PROVIDERS: PCP Family Medicine; Visit Provider Family Medicine
DX: R73.09 Other abnormal glucose (principal); E86.0 Dehydration; E87.1 Hypo-osmolality and hyponatremia
CPT/HCPCS: 82043; 82570

== ENCOUNTER 2024-05-13 11:27 | Emergency (ER) | payer MEDICARE, MEDICAID, SELFPAY ==
[2019-12-15 15:31] VITALS: BMI 28.9
[2024-05-13] VITALS (20 sets, daily range): BP systolic 157–198; BP diastolic 70–143; PULSE 77–92; RESP 11–24; TEMP 36.8; O2SAT 96–99; BMI 31.8
--- NOTE | 2024-05-13 11:38 | DI.RAD.S_ITS ---
PROCEDURE: XR CHEST 1V INDICATIONS: syncope TECHNIQUE: One view of the chest was acquired. COMPARISON: None. FINDINGS: Surgical changes and devices: None. Lungs and pleura: Lung volumes are low with bibasilar patchy consolidation. Mild bilateral diffuse interstitial prominence. No pleural effusions or pneumothorax. Mediastinum: Mediastinal contours appear normal. Heart size is at the upper limits of normal. Bones and chest wall: No suspicious bony lesions. Overlying soft tissues appear unremarkable. IMPRESSION: 1. Lung volumes are low with bibasilar patchy consolidation which may reflect atelectasis, aspiration and/or pneumonia. 2. Mild bilateral diffuse interstitial prominence which may be secondary to low lung volumes versus early pulmonary edema. 3. Heart size is at the upper limits of normal. Please note comparison to prior chest radiograph dated March 09, 2020 could not be made due to PACS error. Dictated by: Dejah Coleman M.D. on 05/13/2024 at 14:00 Approved by: Dejah Coleman M.D. on 05/13/2024 at 14:03
--- NOTE | 2024-05-13 11:38 | DI.CT.S_ITS ---
PROCEDURE: CT HEAD/BRAIN WO CON INDICATIONS: fall / syncope TECHNIQUE: Noncontrast 4.5 mm thick angled axial sections acquired from the foramen magnum to the vertex, with coronal and sagittal reformats. For radiation dose reduction, the following was used: automated exposure control, adjustment of mA and/or kV according to patient size. COMPARISON: [facility], CT, CT HEAD/BRAIN WO CON, 12/15/2019, 12:54. FINDINGS: Image quality: Diagnostic. CSF spaces: Basal cisterns are patent. No extra-axial fluid collections. The ventricles are symmetric in size and shape. Brain: No intracranial bleeds or masses. There is cerebral volume loss for age, with resultant ventricular and sulcal prominence. There are periventricular and deep white matter chronic small vessel ischemic changes. There is intracranial internal carotid artery atherosclerosis. Skull and face: Incidental small densely calcified high right frontal calcified meningioma without mass effect or vasogenic edema. Calvarium and visualized facial bones appear intact, without suspicious lesions. Sinuses: Visualized sinuses and mastoids are clear. IMPRESSION: No acute intracranial pathology. Dictated by: Fabio Lew M.D. on 05/13/2024 at 12:46 Approved by: Fabio Lew M.D. on 05/13/2024 at 12:48
--- NOTE | 2024-05-13 11:39 | ED.SYNCOPE ---
HPI - Syncope General Chief Complaint: Syncope Stated Complaint: syncope, dizziness and vomiting. Time Seen by Provider: 05/13/24 11:37 History of Present Illness HPI narrative: Patient is a 68-year-old female past medical history of alcohol abuse, hypertension, brought into the ED from facility for evaluation of unwitnessed fall. Patient was found on the floor earlier today. Patient states that she does not remember how she got there. She states that she does remember drinking alcohol and laying on the couch. She states that the next thing she remembers was people waking her up and telling her she had to go to the emergency department. At time of initial evaluation she has not complaining of any headache visual disturbances chest pain shortness of breath fever chills nausea vomiting abdominal pain or any other GI/ symptoms. Not on any blood thinners, no focal deficits noted Related Data Previous Rx's Medication Instructions Recorded cyanocobalamin (vitamin B-12) 1,000 mcg PO DAILY #90 tabs 12/22/19 1,000 mcg tablet (Vitamin B-12) levothyroxine 150 mcg tablet 150 mcg PO DAILY #90 tabs 06/03/23 famotidine 20 mg tablet 20 mg PO BID #180 tabs 07/22/23 mupirocin 2 % topical ointment 1 applic topical TID #15 grams 09/04/23 triamcinolone acetonide 0.1 % See Rx Instructions topical DAILY 10/28/23 topical cream #454 grams hydrochlorothiazide 25 mg tablet 25 mg PO DAILY #90 tabs 04/16/24 amlodipine 5 mg tablet 5 mg PO DAILY #90 tabs 05/04/24 citalopram 20 mg tablet 20 mg PO DAILY #90 tabs 05/04/24 losartan 50 mg tablet 50 mg PO DAILY #90 tabs 05/04/24 Allergies Allergy/AdvReac Type Severity Reaction Status Date / Time streptomycin [STREPTOMYCIN] Allergy Severe Throat Verified 10/28/23 09:04 swelled up Patient History Medical History (Updated 05/13/24 @ 17:50 by Bhavik Krishna DO) Hyperlipidemia (07/21/14) Depression (07/21/14) Hypertension (06/13/12) Chronic cholecystitis Diverticulum of esophagus (02/13/17) Obesity (07/21/14) Diabetes mellitus (07/21/14) Surgical History History of cholecystectomy Social History household members: family Smoking Status: Former smoker alcohol intake: current Smoking Status: Former smoker alcohol intake frequency: 0-2 drinks per day Substance Use Type: does not use Exam Initial Vital Signs Initial Vital Signs: Vital Signs Pulse Rate 81 05/13/24 11:35 Pulse Oximetry 97 05/13/24 11:35 Course Orders Ordered: ED Orders 05/13/24 11:30 CK [Creatine Kinase] Stat Complete Blood Count AUTO DIFF Stat Comprehensive Metabolic Panel Stat ETOH [Ethanol (ETOH)] Stat MAG [Magnesium] Stat Troponin I Stat 05/13/24 11:37 EKG-12 Lead Stat 05/13/24 11:38 CT head/brain wo con Stat XR chest 1V Stat 05/13/24 17:38 Urinalysis Screen (Dip Only) Stat Urine Drug Screen, Rapid Stat 05/13/24 17:39 Urinalysis and Microscopic Stat Sodium Chloride (Normal Saline 0.9%) 1,000 mls @ 150 mls/hr IV CONT NIEVES Last Admin: 05/13/24 12:09 Dose: 150 mls/hr Documented By: WENDI Vital Signs Vital signs: Vital Signs - 8 hr 05/13/24 11:35 05/13/24 11:38 05/13/24 12:00 Temperature 98.2 F Pulse Rate 81 79 82 Respiratory Rate 18 23 Blood Pressure 171/75 H Pulse Oximetry 97 98 97 Oxygen Delivery Method Room Air 05/13/24 12:01 05/13/24 12:01 05/13/24 12:30 Temperature Pulse Rate 82 Respiratory Rate 14 Blood Pressure 178/78 H 183/84 H Pulse Oximetry 97 Oxygen Delivery Method 05/13/24 12:30 05/13/24 13:00 05/13/24 13:01 Temperature Pulse Rate 81 78 79 Respiratory Rate 13 19 12 Blood Pressure Pulse Oximetry 97 98 97 Oxygen Delivery Method 05/13/24 13:01 05/13/24 13:30 05/13/24 13:31 Temperature Pulse Rate 83 Respiratory Rate 21 Blood Pressure 180/79 H 184/86 H Pulse Oximetry 99 Oxygen Delivery Method 05/13/24 13:31 05/13/24 13:55 05/13/24 13:55 Temperature Pulse Rate 82 81 Respiratory Rate 23 16 Blood Pressure 196/88 H Pulse Oximetry 99 97 Oxygen Delivery Method 05/13/24 14:00 05/13/24 14:00 05/13/24 14:30 Temperature Pulse Rate 80 Respiratory Rate 16 Blood Pressure 180/83 H 189/138 H Pulse Oximetry 99 Oxygen Delivery Method 05/13/24 14:30 05/13/24 15:00 05/13/24 15:00 Temperature Pulse Rate 78 82 Respiratory Rate 11 L 20 Blood Pressure 190/83 H Pulse Oximetry 98 99 Oxygen Delivery Method 05/13/24 15:30 05/13/24 15:30 05/13/24 16:00 Temperature Pulse Rate 77 84 Respiratory Rate 13 21 Blood Pressure 157/70 H Pulse Oximetry 97 97 Oxygen Delivery Method 05/13/24 16:01 05/13/24 16:01 05/13/24 16:30 Temperature Pulse Rate 86 Respiratory Rate 24 Blood Pressure 181/81 H 187/79 H Pulse Oximetry 98 Oxygen Delivery Method 05/13/24 16:30 05/13/24 17:00 05/13/24 17:00 Temperature Pulse Rate 81 92 H Respiratory Rate 13 23 Blood Pressure 198/143 H Pulse Oximetry 98 98 Oxygen Delivery Method 05/13/24 17:30 05/13/24 17:30 Temperature Pulse Rate 86 Respiratory Rate 21 Blood Pressure 193/86 H Pulse Oximetry 98 Oxygen Delivery Method MDM - Syncope Differential Diagnosis Differential diagnosis: Likely syncope due to orthostatic hypotension, subarachnoid hemorrhage, dehydration and other (Alcohol intoxication) Lab Data 05/13/24 11:30 05/13/24 11:30 Labs: Lab Results 05/13/24 Range/Units 11:30 WBC 11.7 H (4.5-11.0) X10^3/uL RBC 4.28 (4.0-5.2) X10^6/uL Hgb 13.6 (12.0-16.0) g/dL Hct 39.6 (36-46) % MCV 92.6 (80-100) fL MCH 31.8 (26-34) PG MCHC 34.4 (30-36) % RDW 12.3 (11.6-14.8) % Plt Count 251 (150-400) X10^3/uL Neut % (Auto) 85.5 H (50-75) % Lymph % (Auto) 9.3 L (25-40) % Republic % (Auto) 4.9 (3-14) % Eos % (Auto) 0.1 L (2-4) % Baso % (Auto) 0.2 (0-2) % Neut # (Auto) 70770 H (2767-3087) /uL Lymph # (Auto) 1100 (6583-8035) /uL Republic # (Auto) 600 (0-900) /uL Eos # (Auto) 0 (0-450) /uL Baso # (Auto) 0 (0-100) /uL Sodium 134 L (137-145) mmol/L Potassium 3.6 (3.4-5.1) mmol/L Chloride 100 (98-107) mmol/L Carbon Dioxide 21 L (22-32) mmol/L BUN 10 (7-17) mg/dL Creatinine 0.58 (0.52-1.04) mg/dL Estimated GFR > 60 (>60) mL/min BUN/Creatinine Ratio 17.2 (6-22) Glucose 151 H (80-110) mg/dL Calcium 9.2 (8.4-10.2) mg/dL Magnesium 1.8 (1.6-2.3) mg/dL Total Bilirubin 0.7 (0.2-1.3) mg/dL AST 38 H (14-36) IU/L ALT 25 (<35) IU/L Alkaline Phosphatase 80 (38-126) U/L Total Creatine Kinase 274 H (30-135) U/L Troponin I < 0.012 (0.01-0.034) ng/mL Total Protein 7.9 (6.3-8.2) g/dL Albumin 4.5 (3.5-5.0) g/dL Globulin 3.4 (1.7-4.1) g/dL Albumin/Globulin Ratio 1.3 (1.0-2.8) Ethyl Alcohol < 10 ( - 10) mg/dL Point of Care Testing Glucose POC 150 MDM Narrative Medical decision making narrative: Patient is a 68-year-old female with past medical history of hypertension, depression, alcohol abuse, wanted to the ED via EMS from facility for evaluation of unwitnessed fall. Patient states that she did drink alcohol last night, states that she last remembers sitting on the bed and then waking up on the floor to people telling her she need to go to the ER. On my initial evaluation patient without any focal neurological deficits not complaining of any symptoms. Patient workup here unremarkable for any acute intracranial abnormalities or electrolyte or cardiac issues. Patient was not having any urinary symptoms. Strict return precautions were given safe for discharge home with outpatient follow-up Discharge Plan Departure Patient Disposition: Home Clinical Impression: Fall Qualifiers: Encounter type: initial encounter Qualified Code(s): W19.XXXA - Unspecified fall, initial encounter Prescriptions: No Action mupirocin 2 % ointment 1 applic topical TID Qty: 15 0RF levothyroxine 150 mcg tablet 150 mcg PO DAILY Qty: 90 3RF famotidine 20 mg tablet 20 mg PO BID Qty: 180 3RF hydrochlorothiazide 25 mg tablet 25 mg PO DAILY Qty: 90 3RF amlodipine 5 mg tablet 5 mg PO DAILY Qty: 90 3RF losartan 50 mg tablet 50 mg PO DAILY Qty: 90 3RF citalopram 20 mg tablet 20 mg PO DAILY Qty: 90 3RF triamcinolone acetonide 0.1 % cream See Rx Instructions topical DAILY Qty: 454 0RF Rx Instructions: 1 mg topically daily; 1 mg topically bid TOP BID for 14 days cyanocobalamin (vitamin B-12) [Vitamin B-12] 1,000 mcg tablet 1,000 mcg PO DAILY Qty: 90 1RF Referrals: Marlon Brown MD [Primary Care Provider] - Stand Alone Forms: Patient Portal/API
--- NOTE | 2024-05-13 11:43 | EKG_ITS ---
[address] [address] Test Date: 2024-05-13 Pat Name: Rajwinder Alford Department: Room: Gender: Female Physician Anesthesiologist: KULDIP : 1955 Requested By: Order Number: [id number] Reading MD: Chaim Peres Measurements Intervals Black Rate: 79 P: 66 TN: 184 QRS: -32 QRSD: 90 T: 23 QT: 448 QTc: 513 Interpretive Statements Normal sinus rhythm Left axis deviation Anterolateral infarct , age undetermined Prolonged QT Electronically Signed On 05-18-2024 9:11:10 PDT by Chaim Peres
[2024-05-13 11:45] LABS: Add Manual Diff / Slide Review NO; Basophils Absolute Auto 0 /uL (0-100); Basophils Percent Auto 0.2 % (0-2); Eosinophils Absolute Auto 0 /uL (0-450); Eosinophils Percent Auto 0.1 % (2-4); Hematocrit 39.6 % (36-46); Hemoglobin 13.6 g/dL (12.0-16.0); Lymphocytes Absolute Auto 1100 /uL (1100-4500); Lymphocytes Percent Auto 9.3 % (25-40); Mean Corpuscular HGB Conc 34.4 % (30-36); Mean Corpuscular Hemoglobin 31.8 PG (26-34); Mean Corpuscular Volume 92.6 fL (80-100); Monocytes Absolute Auto 600 /uL (0-900); Monocytes Percent Auto 4.9 % (3-14); Neutrophils Absolute Auto 10000 /uL (1500-7000); Neutrophils Percent Auto 85.5 % (50-75); Platelet Count 251 X10^3/uL (150-400); Red Blood Cell Count 4.28 X10^6/uL (4.0-5.2); Red Cell Distribution Width 12.3 % (11.6-14.8); White Blood Cell Count 11.7 X10^3/uL (4.5-11.0)
[2024-05-13 11:56] LABS: Alanine Aminotransferase 25 IU/L (<35); Albumin 4.5 g/dL (3.5-5.0); Albumin Globulin Ratio 1.3 (1.0-2.8); Alkaline Phosphatase 80 U/L (38-126); Aspartate Aminotransferase 38 IU/L (14-36); BUN Creatinine Ratio 17.2 (6-22); Bilirubin Total 0.7 mg/dL (0.2-1.3); Blood Urea Nitrogen 10 mg/dL (7-17); Calcium 9.2 mg/dL (8.4-10.2); Carbon Dioxide 21 mmol/L (22-32); Chloride 100 mmol/L (98-107); Creatine Kinase 274 U/L (30-135); Estimated Glomerular Filt Rate > 60 mL/min (>60); Ethanol (ETOH) < 10 mg/dL; Globulin 3.4 g/dL (1.7-4.1); Glucose 151 mg/dL (80-110); HEMOLYSIS < 15 (0-50); Magnesium 1.8 mg/dL (1.6-2.3); Potassium 3.6 mmol/L (3.4-5.1); Sodium 134 mmol/L (137-145); Total Protein 7.9 g/dL (6.3-8.2)
[2024-05-13 12:07] LABS: Troponin I < 0.012 ng/mL (0.01-0.034)
[2024-05-13] MEDS: SODIUM CHLORIDE 0.9% 1,000 ML 150 ML IV (12:09)
--- NOTE | 2024-05-13 17:49 | PC.NURSE ---
Pt unable to leave a urine sample. Specimen accidentally collected in the EMR. Charge aware.
[2024-05-13] MEDS: MAG HYDROX/ALUM/SIMETH 30 ML UDC PO (18:11)
== END 2024-05-13 18:17 | disposition home or self-care (01) ==
PROVIDERS: Emergency Provider Student in an Organized Health Care Education/Training Program; PCP Family Medicine
DX: R55 Syncope and collapse (principal); W06.XXXA Fall from bed, initial encounter
CPT/HCPCS: 70450; 71045; 80053; 80320; 82550; 82962; 83735; 84484; 85025; 93005; 99284

== ENCOUNTER → 2024-06-17 08:45 | Outpatient (CLI) | payer MEDICARE, MEDICAID, SELFPAY ==
[2019-12-15 15:31] VITALS: BMI 28.9
[2024-06-17 10:07] LABS: Add Manual Diff / Slide Review NO; Basophils Absolute Auto 0 /uL (0-100); Basophils Percent Auto 0.9 % (0-2); Eosinophils Absolute Auto 100 /uL (0-450); Eosinophils Percent Auto 1.8 % (2-4); Hemoglobin 13.2 g/dL (12.0-16.0); Lymphocytes Absolute Auto 1300 /uL (1100-4500); Lymphocytes Percent Auto 22.3 % (25-40); Mean Corpuscular HGB Conc 33.8 % (30-36); Mean Corpuscular Hemoglobin 32.1 PG (26-34); Mean Corpuscular Volume 95.1 fL (80-100); Monocytes Absolute Auto 400 /uL (0-900); Monocytes Percent Auto 6.2 % (3-14); Neutrophils Absolute Auto 3900 /uL (1500-7000); Neutrophils Percent Auto 68.8 % (50-75); Platelet Count 176 X10^3/uL (150-400); Red Blood Cell Count 4.11 X10^6/uL (4.0-5.2); Red Cell Distribution Width 13.1 % (11.6-14.8); White Blood Cell Count 5.7 X10^3/uL (4.5-11.0)
[2024-06-17 10:35] LABS: Hemoglobin A1C% w Est Avg Glu 5.4 % (4.0-6.0)
[2024-06-17 10:37] LABS: HEMOLYSIS < 15 (0-50)
[2024-06-17 10:42] LABS: BUN Creatinine Ratio 17.9 (6-22); Blood Urea Nitrogen 12 mg/dL (7-17); Calcium 9.7 mg/dL (8.4-10.2); Carbon Dioxide 25 mmol/L (22-32); Chloride 103 mmol/L (98-107); Estimated Glomerular Filt Rate > 60 mL/min (>60); Glucose 119 mg/dL (80-110); Potassium 4.5 mmol/L (3.4-5.1); Sodium 133 mmol/L (137-145)
[2024-06-17 19:24] LABS: Carcinoembryonic Antigen 2.5 ng/mL (0.1-3.0)
== END ==
PROVIDERS: PCP Family Medicine; Referring Provider Family Medicine; Visit Provider Family Medicine
DX: E11.9 Type 2 diabetes mellitus without complications (principal); E78.5 Hyperlipidemia, unspecified
CPT/HCPCS: 36415; 80048; 82378; 83036; 85025

== ENCOUNTER → 2024-12-28 11:59 | Outpatient (CLI) | payer MEDICARE, MEDICAID, SELFPAY ==
[2019-12-15 15:31] VITALS: BMI 28.9
[2024-12-28 12:25] LABS: Add Manual Diff / Slide Review NO; Basophils Absolute Auto 0 /uL (0-100); Basophils Percent Auto 0.6 % (0-2); Eosinophils Absolute Auto 100 /uL (0-450); Eosinophils Percent Auto 1.2 % (2-4); Hematocrit 39.7 % (36-46); Hemoglobin 13.5 g/dL (12.0-16.0); Lymphocytes Absolute Auto 1600 /uL (1100-4500); Lymphocytes Percent Auto 25.5 % (25-40); Mean Corpuscular HGB Conc 34.1 % (30-36); Mean Corpuscular Hemoglobin 32.4 PG (26-34); Mean Corpuscular Volume 95.1 fL (80-100); Monocytes Absolute Auto 400 /uL (0-900); Neutrophils Absolute Auto 4100 /uL (1500-7000); Neutrophils Percent Auto 66.7 % (50-75); Platelet Count 175 X10^3/uL (150-400); Red Blood Cell Count 4.17 X10^6/uL (4.0-5.2); Red Cell Distribution Width 13.4 % (11.6-14.8); White Blood Cell Count 6.1 X10^3/uL (4.5-11.0)
[2024-12-28 12:37] LABS: Hemoglobin A1C% w Est Avg Glu 5.1 % (4.0-6.0)
[2024-12-28 12:38] LABS: Alanine Aminotransferase 22 IU/L (<35); Albumin 4.7 g/dL (3.5-5.0); Albumin Globulin Ratio 1.6 (1.0-2.8); Alkaline Phosphatase 80 U/L (38-126); Aspartate Aminotransferase 33 IU/L (14-36); BUN Creatinine Ratio 18.6 (6-22); Blood Urea Nitrogen 13 mg/dL (7-17); Calcium 9.5 mg/dL (8.4-10.2); Carbon Dioxide 22 mmol/L (22-32); Chloride 102 mmol/L (98-107); Cholesterol 275 mg/dL (140-199); Estimated Glomerular Filt Rate > 60 mL/min (>60); Globulin 2.9 g/dL (1.7-4.1); Glucose 120 mg/dL (80-110); HEMOLYSIS < 15 (0-50); Potassium 3.8 mmol/L (3.4-5.1); Sodium 134 mmol/L (137-145); Total Protein 7.6 g/dL (6.3-8.2); Triglycerides 97 mg/dL (35-150)
[2024-12-28 12:45] LABS: HDL Cholesterol 126 mg/dL (40-60); LDL Cholesterol Calculated 130 mg/dL (<100)
[2024-12-28 13:09] LABS: TSH w/ Reflex to FT4 5.08 uIU/mL (0.47-4.68)
[2024-12-28 13:46] LABS: Folate > 20.0 ng/mL (2.76-20.0); Vitamin B12 283 pg/mL (239-931)
[2024-12-28 14:14] LABS: Creatinine Urine Random 138.38 mg/dL
[2024-12-28 14:18] LABS: Microalbumin Urine Random < 0.6 mg/dL (0-1.6)
[2024-12-29 15:35] LABS: Free T4, Direct Thyroxine 1.08 ng/dL (0.78-2.19)
== END ==
PROVIDERS: PCP Family Medicine; Referring Provider Family Medicine; Visit Provider Family Medicine
DX: E11.9 Type 2 diabetes mellitus without complications (principal); E51.2 Wernicke's encephalopathy; F32.9 Major depressive disorder, single episode, unspecified; I10 Essential (primary) hypertension
CPT/HCPCS: 36415; 80053; 80061; 82043; 82570; 82607; 82746; 83036; 84439; 84443; 85025